=== PATIENT | male | born 1950 | race Caucasian/White ===

== ENCOUNTER 2024-05-19 12:05 | Inpatient (IN) | payer OTHER ==
[~2024-05-19] VITALS: Ht 200.7 cm; Wt 89.5 kg
--- NOTE | 2024-05-19 12:47 | ED.PDOC ---
HPI Comments 74M BIBA w/ prior Hx of AFIB which may be associated to the c/c of Palpitations. Pt stated that he had acid reflex [place] night and "all of a sudden my heart started pounding but it has calmed down for the past 8 hours". Pt notes that his CP is pressure like, SOB and AFIB. Pt also states that he was transferred from [facility]. PMHx of Sinus Srx and Tonsillectomy. Social Hx of tobacco use, but denies alcohol and substance use. Denies chills. fever, N/V/D or other associated symptoms, modifiers, or recent injuries at this time. Chief Complaint: Palpitations Time Seen by MD: 12:15 Primary Care Provider: [place] Reviewed Notes: Nurses Notes, Poiser Notes, Medications, Allergies Allergies: Coded Allergies: Penicillins (Verified Allergy, Severe, 05/19/24) Information Source: Patient Mode of Arrival: EMS Severity: Moderate Timing: Days Duration: Since onset, Days Prehospital treatment: None Location: Chest (L) Radiation: No Radiation Quality: Pressure Onset: At Rest Cardiac Risk Factors: Smoker PE Risk Factors: None History of: Other (A-Fib) Associated Signs and Symptoms: SOB, Palpitations Past Medical History PAST MEDICAL HISTORY: AFIB Surgical History: Tonsillectomy Surgical History (Other): Sinus Srx Family History Family History: Reviewed,noncontributory to illness, Unknown Social History Smoker: Cigarettes Alcohol: Denies ETOH Use Drugs: Denies Drug Use Lives In: Home Constitutional: denies: chills, diaphoresis, fatigue, fever, malaise, sweats, weakness, others EENTM: denies: blurred vision, double vision, ear bleeding, ear discharge, ear drainage, ear pain, ear ringing, eye pain, eye redness, hearing loss, mouth pain, mouth swelling, nasal discharge, nose bleeding, nose congestion, nose pain, photophobia, tearing, throat pain, throat swelling, voice changes, others Respiratory: denies: cough, hemoptysis, orthopnea, SOB at rest, shortness of breath, SOB with excertion, stridor, wheezing, others Cardiovascular: reports: chest pain, palpitations; denies: dizzy spells, diaphoresis, Dyspnea on exertion, edema, irregular heart beat, left arm pain, lightheadedness, PND, syncope, others Gastrointestinal: denies: abdomen distended, abdominal pain, blood streaked bowels, constipated, diarrhea, dysphagia, difficulty swallowing, hematemesis, melena, nausea, poor appetite, poor fluid intake, rectal bleeding, rectal pain, vomiting, others Genitourinary: denies: burning, dysuria, flank pain, frequency, hematuria, incontinence, penile discharge, penile sore, pain, testicle pain, testicle swelling, urgency, others Neurological: denies: dizziness, fainting, headache, left sided numbness, left sided weakness, numbness, paresthesia, pre-existing deficit, right sided numbness, right sided weakness, seizure, speech problems, tingling, tremors, weakness, others Musculoskeletal: denies: back pain, gout, joint pain, joint swelling, muscle pain, muscle stiffness, neck pain, others Integumetry: denies: bruises, change in color, change in hair/nails, dryness, laceration, lesions, lumps, rash, wounds, others Allergic/Immunocompromised: denies: Difficulty Healing, Frequent Infections, Hives, Itching, others Hematologic/Lymphatic: denies: anemia, blood clots, easy bleeding, easy bruising, swollen glands, others Endocrine: denies: excessive hunger, excessive sweating, excessive thirst, excessive urination, flushing, intolerance to cold, intolerance to heat, unexplained weight gain, unexplained weight loss, others Psychiatric: denies: anxiety, bipolar disorder, depression, hopeless, panic disorder, schizophrenia, sleepless, suicidal, others All Other Systems: Reviewed and Negative Physical Exam General Appearance: Moderate Distress, Normal HEENT: Normal ENT Inspection, Pharynx Normal, TMs Normal Neck: Full Range of Motion, Non-Tender, Normal, Normal Inspection Respiratory: Chest Non-Tender, No Accessory Muscle Use, No Respiratory Distress, Other (Coarse breath sounds) Cardiovascular: Irregular, No Edema, No JVD, No Murmur, No Gallop, Normal Peripheral Pulses, Tachycardia Breast Exam: Deferred Gastrointestinal: No Organomegaly, Non Tender, No Pulsatile Mass, Normal Bowel Sounds, Soft Genitalia: Deferred Pelvic: Deferred Rectal: Deferred Extremities: No calf tenderness, Normal capillary refill, Normal range of motion, Non-tender, No pedal edema Musculoskeletal : Apperance: Normal Neurologic: Alert, asphalt heater tender II-XII nml as Tested, No Motor Deficits, Normal Affect, Normal Mood, No Sensory Deficits Cerebellar Function: NOT DONE Reflexes: NOT DONE Skin: Dry, Normal Color, Warm Peripheral Pulses: 3+ Radial (R), 3+ Radial (L) Lymphatic: No Adenopathy Was a procedure done? Was a procedure done?: No CP Differential Dx Differential Diagnosis: A-fib, A-Flutter, Angina, Anxiety / Panic Attack, Atrial Dysrhythmia, Electrolyte Disorder X-Ray, Labs, Meds, VS Vital Signs Date Time Temp Pulse Resp B/P (MAP) Pulse Ox O2 Delivery O2 Flow Rate FiO2 05/19/24 15:10 93/60 05/19/24 14:10 118/68 05/19/24 13:57 99.5 83 20 118/78 (91) 93 99.5 05/19/24 13:57 Room Air* 0 21 05/19/24 12:12 97 05/19/24 12:05 97.8 90 22 103/69 (80) 99 Lab Test 05/19/24 14:40 05/19/24 13:32 Range/Units Troponin I High Sensitivity 4 5 </=54 ng/L White Blood Count 23.6 H 4.4-10.8 10^3/uL Red Blood Count 4.82 4.5-5.90 10^6/uL Hemoglobin 13.6 13.5-17.5 g/dL Hematocrit 40.9 L 41.0-53.0 % Mean Corpuscular Volume 84.9 80.0-100.0 fL Mean Corpuscular Hemoglobin 28.2 28.0-32.0 pg Mean Corpuscular Hemoglobin Concent 33.2 32.0-36.0 g/dL Red Cell Distribution Width 15.5 H 11.8-14.3 % Platelet Count 226 140-450 10^3/uL Mean Platelet Volume 8.8 6.9-10.8 fL Neutrophils (%) (Auto) 74.8 37.0-80.0 % Lymphocytes (%) (Auto) 15.3 10.0-50.0 % Monocytes (%) (Auto) 9.6 0.0-12.0 % Eosinophils (%) (Auto) 0.0 0.0-7.0 % Basophils (%) (Auto) 0.3 0.0-2.0 % Neutrophils # (Auto) 17.7 H 1.6-8.6 10 ^3/uL Lymphocytes # (Auto) 3.6 0.4-5.4 10 ^3/uL Monocytes # (Auto) 2.3 H 0-1.3 10 ^3/uL Eosinophils # (Auto) 0 0-0.8 10 ^3/uL Basophils # (Auto) 0.1 0-0.2 10 ^3/uL Nucleated Red Blood Cells 0.1 % Sodium Level 135 L 136-145 mmol/L Potassium Level 4.9 3.5-5.1 mmol/L Chloride Level 103 98-107 mmol/L Carbon Dioxide Level 23 20-31 mmol/L Anion Gap 9 5-15 Blood Urea Nitrogen 18 9-23 mg/dL Creatinine 1.23 0.700-1.30 mg/dL Glomerular Filtration Rate Calc 62 >90 mL/min BUN/Creatinine Ratio 14.6 10.0-20.0 Serum Glucose 220 H 74-106 mg/dL Calcium Level 10.1 8.7-10.4 mg/dL Total Bilirubin 1.4 H 0.2-1.0 mg/dL Aspartate Amino Transferase (AST) 24 13-40 U/L Alanine Aminotransferase (ALT) 13 7-40 U/L Alkaline Phosphatase 127 H 46-116 U/L Total Protein 7.1 5.7-8.2 g/dL Albumin 4.4 3.2-4.8 g/dL Current Medications Medications (Trade) Dose Ordered Sig/Estela Route Start Time Stop Time Status Last Admin Amiodarone HCl 100 ml @ 618 mls/hr ONCE ONCE IV 05/19/24 12:45 05/19/24 12:54 DC 05/19/24 13:55 Amiodarone HCl 250 ml @ 33.333 mls/ hr Q7H30M IV 05/19/24 13:00 05/19/24 18:59 05/19/24 14:10 Aspirin 325 mg ONCE ONCE PO 05/19/24 14:00 05/19/24 14:01 DC 05/19/24 14:10 Nitroglycerin (Ntrostat Sublingual) 0.4 mg ONCE ONCE SL 05/19/24 14:00 05/19/24 14:01 DC 05/19/24 14:10 Patient alert. Complaining of chest pain irregular heartbeat. Vitals stable. Answering all questions. Started on amiodarone. Spoke with [facility]. Stable for transfer. Explained to the patient. Continue cardiac monitoring. WBC elevated. Early pneumonia. Was given Rocephin. Was given azithromycin. [facility] approved inpatient admission [id number]. Time of 1ST Reevaluation: 12:45 Reevaluation 1ST: Unchanged Patient Education/Counseling: Diagnosis, Treatment, Prognosis Family Education/Counseling: No Family Present Departure 1 Departure Time of Disposition: 12:56 Impression: Primary Impression: Atrial fibrillation Qualified Codes: I48.0 - Paroxysmal atrial fibrillation Additional Impression: Pneumonia Qualified Codes: J18.9 - Pneumonia, unspecified organism Disposition: ADMITTED INPATIENT Admit to: Med Surg Condition: Guarded Critical Care Note Critical Care Time?: Yes (45 min-critical care time only) Stability Stability form required: No Heart Score Heart Score: Heart Score Response (Comments) Value History Slightly Suspicious 0 EKG Normal 0 Age >65 2 Risk Factors >3 or Hx ASHD 2 Troponin Normal limit 0 Total 4 I personally scribed for NATA NOBLE MD ([email or web address]) on 05/19/24 at 12:47. Electronically submitted by Brendan Angulo ([email or web address]). NATA NOBLE MD May 19, 2024 12:47
[2024-05-19] MEDS: AMIODARONE BOLUS KIT 100 ML IV ONE (13:55)
[2024-05-19 14:07] LABS: Basophils # (auto) 0.1 10 ^3/uL (0-0.2); Basophils % (auto) 0.3 % (0.0-2.0); Eosinophils # (auto) 0 10 ^3/uL (0-0.8); Hematocrit 40.9 % (41.0-53.0); Hemoglobin 13.6 g/dL (13.5-17.5); Lymphocytes # (auto) 3.6 10 ^3/uL (0.4-5.4); Lymphocytes % (auto) 15.3 % (10.0-50.0); Mean Corpuscular Hemoglobin 28.2 pg (28.0-32.0); Mean Corpuscular Hgb Conc. 33.2 g/dL (32.0-36.0); Mean Corpuscular Volume 84.9 fL (80.0-100.0); Monocytes # (auto) 2.3 10 ^3/uL (0-1.3); Monocytes % (auto) 9.6 % (0.0-12.0); Neutrophils # (auto) 17.7 10 ^3/uL (1.6-8.6); Neutrophils % (auto) 74.8 % (37.0-80.0); Nucleated Red Blood Cells % 0.1 %; Platelet Count (auto) 226 10^3/uL (140-450); Red Blood Cells 4.82 10^6/uL (4.5-5.90); Red Cell Distribution Width 15.5 % (11.8-14.3); White Blood Cell 23.6 10^3/uL (4.4-10.8)
[2024-05-19] MEDS: AMIODARONE 450mg/250ml AE 250 ML IV SCH (14:10)
[2024-05-19] MEDS: ASPirin 325 MG TAB PO ONE (14:10)
[2024-05-19] MEDS: NITROGLYCERIN 0.4 MG SL TAB SL ONE (14:10)
[2024-05-19 14:15] LABS: Alanine Aminotransferase 13 U/L (7-40); Albumin 4.4 g/dL (3.2-4.8); Anion Gap 9 (5-15); Aspartate Aminotransferase 24 U/L (13-40); BUN/Creatinine Ratio 14.6 (10.0-20.0); Blood Urea Nitrogen 18 mg/dL (9-23); Calcium 10.1 mg/dL (8.7-10.4); Carbon Dioxide 23 mmol/L (20-31); Chloride 103 mmol/L (98-107); Potassium 4.9 mmol/L (3.5-5.1); Total Protein 7.1 g/dL (5.7-8.2)
[2024-05-19 14:16] LABS: Alkaline Phosphatase 127 U/L (46-116); Bilirubin, Total 1.4 mg/dL (0.2-1.0); Glucose 220 mg/dL (74-106); Sodium 135 mmol/L (136-145)
[2024-05-19] MEDS: cefTRIAXone 1GM/50ML D5W 50 ML IV ONE (15:31)
[2024-05-19] MEDS: MAGNESIUM SULFATE 1GM/100ML 100 ML IV SCH (16:00)
[2024-05-19] MEDS: AZITHROMYCIN 500MG/ 250ML 250 ML IV ONE (16:11)
--- NOTE | 2024-05-19 16:18 | DVHHP2 ---
History of Present Illness Reason for Visit: Shortness of breaths and palpitations History of Present Illness MoreJez is a 74-year-old male with past medical history of AFib, venous insufficiency, and smoker who presents to the ED with palpitations and shortness of breath. Patient reports that the indigestion discomfort started on Monday. Daughter at bedside also states that she tested him for COVID results were negative. Patient reports that he went to [place] [facility] urgent care today and the transferred him here to the ED. Patient rates his current pain 2/10 pressure- like and constant. Patient denies any chills, fever, nausea, vomiting, diarrhea, headache, lightheadedness and dizziness. Cardiovascular: AFIB Past Surgical History: Other (Sinus surgery), Tonsillectomy Smoke: 2 packs per day ALCOHOL: none Drugs: Other (THC gummies nightly) Lives: with Family Domestic Violence: Neg Review of Systems Constitutional: No: Fever, Chills, Sweats, Weakness, Malaise, Other Eyes: No: Pain, Vision change, Conjunctivae inflammation, Eyelid inflammation, Other, Redness ENT: No: Ear pain, Ear discharge, Nose pain, Nose discharge, Nose congestion, Mouth pain, Mouth swelling, Throat pain, Throat swelling, Other Respiratory: Shortness of breath; No: Cough, Dry, SOB with excertion, Wheezing, Hemoptysis, Pleuritic Pain, Sputum, Wheezing, Other Cardiovascular: Palpitations; No: Chest Pain, Orthopnea, Paroxysmal Noc. Dyspnea, Edema, Lt Headedness, Other Gastrointestinal: No: Nausea, Vomiting, Abdominal Pain, Diarrhea, Constipation, Melena, Hematochezia, Other Genitourinary: No Dysuria, No Frequency, No Incontinence, No Hematuria, No Retention, No Other Musculoskeletal: No: other, neck pain, shoulder pain, arm pain, back pain, hand pain, leg pain, foot pain Skin: No: Rash, Lesions, Jaundice, Bruising, Other Neurological: No: Weakness, Numbness, Incoordination, Change in speech, Confusion, Seizures, Other Allergies: Coded Allergies: Penicillins (Verified Allergy, Severe, 05/19/24) Medications Current Medications Medications Dose Ordered Sig/Estela Route Start Time Stop Time Status Last Admin Dose Admin Amiodarone HCl 250 ml @ 33.333 mls/ hr Q7H30M IV 05/19/24 13:00 05/19/24 18:59 05/19/24 14:10 33.333 MLS/HR Exam Vital Signs Vital Signs Date Time Temp Pulse Resp B/P (MAP) Pulse Ox O2 Delivery O2 Flow Rate FiO2 05/19/24 15:10 93/60 05/19/24 13:57 99.5 83 20 93 99.5 05/19/24 13:57 Room Air* 0 21 General Appearance: Alert, Oriented X3, Cooperative, mild distress HEENT: Atraumatic, PERRLA, EOMI, Mucous membr. moist/pink Respiratory: Clear to auscultation, Normal air movement Cardiovascular: Normal S1, Normal S2, No murmurs Abdominal: Normal bowel sounds, Soft, No tenderness, No hepatospenomegaly, No masses Extremities: No clubbing, No cyanosis, No edema, Normal pulses, No tenderness/swelling Skin: No rashes, No breakdown, No significant lesion Neuro: Normal speech, Strength at 5/5 X4 ext, Normal tone, Sensation intact Psych/Mental Status: Mental status NL, Mood NL Labs/Xrays Labs Test 05/19/24 14:40 05/19/24 13:32 Range/Units Troponin I High Sensitivity 4 </=54 ng/L White Blood Count 23.6 H 4.4-10.8 10^3/uL Red Blood Count 4.82 4.5-5.90 10^6/uL Hemoglobin 13.6 13.5-17.5 g/dL Hematocrit 40.9 L 41.0-53.0 % Mean Corpuscular Volume 84.9 80.0-100.0 fL Mean Corpuscular Hemoglobin 28.2 28.0-32.0 pg Mean Corpuscular Hemoglobin Concent 33.2 32.0-36.0 g/dL Red Cell Distribution Width 15.5 H 11.8-14.3 % Platelet Count 226 140-450 10^3/uL Mean Platelet Volume 8.8 6.9-10.8 fL Neutrophils (%) (Auto) 74.8 37.0-80.0 % Lymphocytes (%) (Auto) 15.3 10.0-50.0 % Monocytes (%) (Auto) 9.6 0.0-12.0 % Eosinophils (%) (Auto) 0.0 0.0-7.0 % Basophils (%) (Auto) 0.3 0.0-2.0 % Neutrophils # (Auto) 17.7 H 1.6-8.6 10 ^3/uL Lymphocytes # (Auto) 3.6 0.4-5.4 10 ^3/uL Monocytes # (Auto) 2.3 H 0-1.3 10 ^3/uL Eosinophils # (Auto) 0 0-0.8 10 ^3/uL Basophils # (Auto) 0.1 0-0.2 10 ^3/uL Nucleated Red Blood Cells 0.1 % Sodium Level 135 L 136-145 mmol/L Potassium Level 4.9 3.5-5.1 mmol/L Chloride Level 103 98-107 mmol/L Carbon Dioxide Level 23 20-31 mmol/L Anion Gap 9 5-15 Blood Urea Nitrogen 18 9-23 mg/dL Creatinine 1.23 0.700-1.30 mg/dL Glomerular Filtration Rate Calc 62 >90 mL/min BUN/Creatinine Ratio 14.6 10.0-20.0 Serum Glucose 220 H 74-106 mg/dL Calcium Level 10.1 8.7-10.4 mg/dL Total Bilirubin 1.4 H 0.2-1.0 mg/dL Aspartate Amino Transferase (AST) 24 13-40 U/L Alanine Aminotransferase (ALT) 13 7-40 U/L Alkaline Phosphatase 127 H 46-116 U/L Total Protein 7.1 5.7-8.2 g/dL Albumin 4.4 3.2-4.8 g/dL EXAM: XY CHEST PORTABLE TECHNIQUE: Single frontal chest radiograph CLINICAL HISTORY: sob COMPARISON: None Findings/Impression: Frontal chest radiograph demonstrates no acute osseous or superficial soft tissue abnormalities. The trachea is midline. Cardiomegaly with pulmonary vascular congestion. No pneumothorax, pleural effusions, or consolidations. Assessment/Plan Assessment/Plan # AFib with RVR cardiology consult amio drip pradaxa, beta kaila/metoprolol, hold diltiazem lipid panel tsh night monitor labs admit to tele #sepsis likely d/t PNA IV abx - cefepime and vancomycin IVf resuscitation miranda cx check for influenza sputum culture #hyperglycemia check HgbA1c #CKD2 Monitor #venous insufficiency -RLE compression stockings #Tobacco use nicotine patch Counseled on smoking cessation DVT ppx Discussed plan of care with patient, daughter and RN Home medications reconciled Plan discussed with: Patient, Daughter Date of Service: May 19, 2024 Billing Provider: ARLINE ANTOINE Common Visit Codes: [id number] INP/OBS CARE (MOD) ARLINE ANTOINE May 19, 2024 16:18
[2024-05-19] MEDS ORDERED: VANCOMYCIN PER PHARMACY 0 MG IV SCH (16:30)
--- NOTE | 2024-05-19 16:40 | DVH ---
EXAM: XY CHEST PORTABLE TECHNIQUE: Single frontal chest radiograph CLINICAL HISTORY: sob COMPARISON: None Findings/Impression: Frontal chest radiograph demonstrates no acute osseous or superficial soft tissue abnormalities. The trachea is midline. Cardiomegaly with pulmonary vascular congestion. No pneumothorax, pleural effusions, or consolidations.
[2024-05-19] MEDS: SODIUM CHLORIDE 0.9% 2,450 ML IV ONE (17:00)
[2024-05-19] MEDS ORDERED: NITROGLYCERIN 0.4 MG SL TAB SL PRN (17:00)
[2024-05-19] MEDS: VANCOMYCIN 1GM/250ML KIT 250 ML IV SCH (17:17)
[2024-05-19 17:33] LABS: Triglycerides 82 mg/dL (< 150)
[2024-05-19 17:34] LABS: LDL Cholesterol 58 mg/dL (< 100)
[2024-05-19 17:35] LABS: Cholesterol 119 mg/dL (< 200)
[2024-05-19] MEDS: CEFEPIME 1GM/ 50ML 50 ML IV SCH (18:00)
[2024-05-19 18:01] LABS: HDL Cholesterol 38 mg/dL (40-59)
[2024-05-19 18:10] LABS: Lactic Acid w/Reflex 2.5 mmol/L (0.4-2.0)
[2024-05-19] MEDS: SODIUM CHLORIDE 0.9% 1,000 ML IV SCH (18:22)
[2024-05-19 18:27] LABS: Urine Bacteria None Seen /hpf (None Seen)
[2024-05-19 18:40] LABS: Urine Blood Negative /uL (Negative); Urine Clarity Clear (Clear); Urine Color Yellow (Yellow); Urine Hyaline Cast MOD /lpf (0 - 2); Urine Mucus FEW (None Seen); Urine Protein, UAD TRACE (Negative); Urine Specific Gravity 1.019 (1.001-1.035); Urine Urobilinogen Normal (Negative); Urine WBC 2 /hpf (0 - 3); Urine pH 5.5 (5.0-9.0)
[2024-05-19] MEDS ORDERED: DILT60TA PO (21:43)
[2024-05-19] MEDS: ATORVASTATIN 20 MG TAB PO SCH (22:00)
[2024-05-19] MEDS: METOPROLOL TARTRATE 25 MG TAB PO SCH (22:15)
[2024-05-19] MEDS: NICOTINE 7MG/24HR TOPICAL PATCH TD SCH (22:16)
[2024-05-19 22:56] VITALS: RESP 20; O2SAT 91
[2024-05-19] MEDS: DABIGATRAN 75 MG CAP PO SCH (23:05)
[2024-05-19] MEDS: MELATONIN 5 MG TAB ONE (23:13)
[2024-05-19] MEDS: MELATONIN 5 MG TAB PO ONE (23:14)
[2024-05-19] MEDS ORDERED: MELATONIN 5 MG TAB PO ONE (23:15)
[2024-05-20] VITALS (7 sets, daily range): BP systolic 104–119; BP diastolic 64–72; PULSE 75–126; RESP 15–20; TEMP 98.3–99.5; O2SAT 91–95
[2024-05-20] MEDS: VANCOMYCIN 500mg/100mL 100 ML IV SCH (05:02)
--- NOTE | 2024-05-20 05:42 | DVH ---
CHEST RADIOGRAPH Indication: PNA Technique: Single frontal view of the chest was obtained COMPARISON: XY CHEST PORTABLE on DOS: 05/19/24 FINDINGS: Lines and Tubes: None Lungs: Right lower lobe airspace disease. Pleura: No effusion. No pneumothorax. Cardiomediastinal contours: Unremarkable Bones: Unremarkable IMPRESSION: Right lower lobe airspace disease.
[2024-05-20 06:37] LABS: Alanine Aminotransferase 17 U/L (7-40); Alkaline Phosphatase 100 U/L (46-116); Anion Gap 6 (5-15); BUN/Creatinine Ratio 14.8 (10.0-20.0); Blood Urea Nitrogen 12 mg/dL (9-23); Calcium 8.9 mg/dL (8.7-10.4); Carbon Dioxide 24 mmol/L (20-31); Chloride 106 mmol/L (98-107); Potassium 3.8 mmol/L (3.5-5.1); Sodium 136 mmol/L (136-145)
[2024-05-20 06:38] LABS: Albumin 3.4 g/dL (3.2-4.8); Aspartate Aminotransferase 15 U/L (13-40)
[2024-05-20 06:39] LABS: Bilirubin, Total 0.8 mg/dL (0.2-1.0); Total Protein 5.7 g/dL (5.7-8.2)
[2024-05-20 06:48] LABS: Glucose 161 mg/dL (74-106)
[2024-05-20 07:06] LABS: Basophils # (auto) 0 10 ^3/uL (0-0.2); Basophils % (auto) 0.2 % (0.0-2.0); Eosinophils # (auto) 0 10 ^3/uL (0-0.8); Hematocrit 32.3 % (41.0-53.0); Hemoglobin 11.2 g/dL (13.5-17.5); Lymphocytes % (auto) 18.3 % (10.0-50.0); Mean Corpuscular Hemoglobin 28.8 pg (28.0-32.0); Mean Corpuscular Hgb Conc. 34.8 g/dL (32.0-36.0); Mean Corpuscular Volume 82.8 fL (80.0-100.0); Monocytes # (auto) 0.8 10 ^3/uL (0-1.3); Monocytes % (auto) 7.3 % (0.0-12.0); Neutrophils % (auto) 74.2 % (37.0-80.0); Platelet Count (auto) 158 10^3/uL (140-450); Red Cell Distribution Width 15.2 % (11.8-14.3); White Blood Cell 10.8 10^3/uL (4.4-10.8)
[2024-05-20 08:02] LABS: Rapid Influenza A Negative (Negative); Rapid Influenza B Negative (Negative)
--- NOTE | 2024-05-20 09:33 | DVHSR ---
APPROVED REPORT EXAM: Two-dimensional and M-mode echocardiogram with Doppler and color Doppler. Blood Pressure: 93/60 mmHg INDICATION Afib with RVR RISK FACTORS Height: 6'2", Weight: 187 DIMENSIONS LVDd4.7 (3.8-5.7cm)LA (2D)4.1 (1.9-4.0cm)Aortic Root4.0 (2.0-3.7cm) LVDs3.2 (2.5-4.0cm)LA (MM) (1.9-4.0cm)Aortic Cusp Exc2.3 (1.5-2.0cm) EF (%) 60.0 (55-70%)Rt. Atrium4.2 (1.9-4.0cm)Asc. Aorta cm IVSd1.1 (0.7-1.1cm)RV (D)3.7 (1.8-2.4cm) PWd1.1 (0.7-1.1cm) Mitral Valve MitralMitral Stenosis E wave0.84m/sMV Mean GR.mmHg A wave1.01m/sMV Peak GR.mmHg E/A ratio0.82D MVAcm2 DECEL [id number] 1/2 [place] Aortic Valve Aortic ValveAortic Stenosis V11.01m/Ruben Mean GR.4mmHg V21.23m/Ruben Peak GR.6mmHg LVOT Diameter2.5 (1.8-2.4cm)Doppler AVA4.03cm2 Pulmonic Valve V20.74m/s Tricuspid Valve TR Velocity2.63m/s [id number] Conclusion Normal left ventricular size and dimension. Normal left ventricular systolic function estimated ejec tion fraction of 60%. There is a grade 1 diastolic dysfunction. Normal right ventricular size and dimension. Normal right ventricular systolic function. Mildly pablo vated right ventricular systolic [id number] mm of mercury. Normal biatrial size and dimension. Normal aortic valve structure and function. Normal mitral valve structure and function. Normal tricuspid valve structure and function. The pulmonary valve is grossly normal. There is a small circumferential pericardial effusion.
[2024-05-20] MEDS: ACETAMINOPHEN 325 MG TAB PO PRN (10:46)
--- NOTE | 2024-05-20 13:35 | DVHINCON2 ---
Date Seen: May 20, 2024 Referring Physician NEFTALY Campos Reason for Consultation A-fib with RVR History of Present Illness This is a 74-year-old man who presented to the emergency room from a local [facility] via EMS with a chief complaint shortness of breath since Monday. Patient reports worsening shortness of breath associated with palpitations, epigastric pain, bilateral jaw pain, and chest pain described as substernal, pressure-like, and non provoked. The patient also endorses increased fatigue and dizziness when working on his yard for approximately 30 min-1hr at a time which requires him to stop his activities. Given the aforementioned symptoms, the patient presented to a local [facility] where he underwent a 12 lead electrocardiogram and found to be in an atrial fibrillation rhythm with rapid ventricular rate in the 110s bpm. Upon arrival to the emergency room he underwent a subsequent 12 lead electrocardiogram revealing an atrial fibrillation rhythm at a controlled rate. The patient was found in a normal sinus rhythm at time of assessment. Followed up with his primary propeller engineer at [place] approximately two years ago. Reports undergoing a previous dumont sthoracic echocardiogram and treadmill stress test with unremarkable results. Denies undergoing invasive cardiac procedures in the past. Significant medical history includes paroxysmal atrial fibrillation on Cardizem ER and Pradaxa therapy BID, diabetes mellitus type 2, dyslipidemia, basal cell skin carcinoma, emphysema, and a tobacco history x 79.5 pack-years. Past Medical History Past medical history reviewed. No other significant than mentioned above. Past Surgical History Tonsillectomy Family History Family history reviewed. Social History Denies the use of illicit drugs & alcohol. See HPI. Allergies: Coded Allergies: Penicillins (Verified Allergy, Severe, 05/19/24) Home Meds Reported Medications Diltiazem Hcl (Diltiazem Hcl) 60 Mg Tab, 120 MG PO DAILY, MG 05/19/24 Home Meds Home medications reviewed. Current Medications Current Medications Medications (Trade) Dose Ordered Sig/Estela Route PRN Reason Start Time Stop Time Status Last Admin Magnesium Sulfate/ Dextrose 100 ml @ 100 mls/hr Q1HR IV 05/19/24 16:00 05/19/24 17:59 DC 05/19/24 17:16 Sodium Chloride 1,000 ml @ 75 mls/hr [id number] IV 05/19/24 16:30 05/20/24 06:33 Cefepime HCl 50 ml @ 12.5 mls/hr Q8H IV 05/19/24 18:00 05/20/24 10:47 Vancomycin HCl 0 ml @ 0 mls/hr UD IV 05/19/24 16:30 Atorvastatin Calcium (Lipitor) 60 mg HS PO 05/19/24 22:00 Dabigatran (Pradaxa Capsule) 150 mg BID PO 05/19/24 22:00 05/20/24 10:47 Metoprolol Tartrate (Lopressor Tablet) 25 mg BID PO 05/19/24 22:00 05/20/24 10:46 Vancomycin HCl 250 ml @ 250 mls/hr Q1H IV 05/19/24 17:00 05/19/24 18:59 DC 05/19/24 18:22 Acetaminophen/ Hydrocodone Bitart (Triangle 5/325MG Tab) 1 tab Q4HP PRN PO MODERATE PAIN (4-6 PAIN SCALE) 05/19/24 17:00 Ondansetron HCl (Zofran) 4 mg Q4HP PRN IV NAUSEA / VOMITING 05/19/24 17:00 Docusate Sodium (Colace Capsule) 100 mg BIDPRN PRN PO FOR CONSTIPATION 05/19/24 17:00 Acetaminophen (Tylenol Tablet) 650 mg Q6HP PRN PO PAIN SCALE 1-3 OR TEMP>100.4 05/19/24 17:00 05/20/24 10:46 Morphine Sulfate 2 mg Q4HPRN PRN IV SEVERE PAIN (7-10 PAIN SCALE) 05/19/24 17:00 Nitroglycerin (Ntrostat Sublingual) 0.4 mg Q5MINP PRN SL FOR CHEST PAIN 05/19/24 17:00 Morphine Sulfate 2 mg Q30M PRN IV FOR CHEST PAIN 05/19/24 17:00 Albuterol (Ventolin Medneb) 2.5 mg Q4HPRN PRN NEB SHORTNESS OF BREATH 05/19/24 17:15 Ipratropium [place] (Atrovent Medneb) 0.5 mg Q4HPRN PRN NEB SHORTNESS OF BREATH 05/19/24 17:15 Vancomycin HCl 100 ml @ 200 mls/hr Q12H IV 05/20/24 05:00 05/20/24 05:02 Nicotine (Nicoderm 7MG/ 24HR) 1 patch DAILY TD 05/19/24 21:13 05/20/24 10:45 Review of Systems Constitutional: No symptom reported Ears, Nose, & Throat: No symptom reported Eyes: No symptom reported Neurological: Dizziness Pulmonary/Respiratory: SOB Cardiovascular: Chest pain, jaw pain, palpitations Gastrointestinal: No symptom reported Genitourinary: No symptom reported Musculoskeletal: No symptom reported Skin: No symptom reported Psychiatric: No symptom reported Endocrine: No symptom reported Hemotologic/Lymphatic: No symptom reported Vital Signs Vital Signs Date Time Temp Pulse Resp B/P (MAP) Pulse Ox O2 Delivery O2 Flow Rate FiO2 05/20/24 12:00 74 05/20/24 12:00 20 102/63 (76) 95 05/20/24 08:00 Nasal Cannula* 4 36 05/20/24 06:00 99.4 99.4 Physical Exam General Appearance: Cooperative. Well developed. Well nourished. In no acute distress Head Exam: Normal inspection Neck Exam: Normal inspection. Non-tender. Normal alignment Pulmonary/Respiratory: Chest non-tender. Clear bilateral breath sounds Cardiovascular/Chest: Regular rate and rhythm. S1, S2. NSR. No murmurs. No JVD. Peripheral Pulses: 2+ Radial (R). 2+ Radial (L). 2+ Pedal (R). 2+ Pedal (L) Abdominal Exam: Normal bowel sounds. Soft. Nontender. No hepatospenomegaly. No masses Ankle Exam: Negative ankle edema Lower extremities: Negative lower extremity edema Neuro/Mental Status: A&O x4. Coherent Thoughts/Psych: Normal thought pattern. Appropriate mood and affect. Good judgement and insight. Pleasant Appearance: In no acute distress Skin Exam: Normal inspection. Normal color. Warm. Dry Labs/Diagnostic Data Labs Test 05/20/24 05:34 05/20/24 05:01 05/19/24 19:08 05/19/24 18:00 Range/Units Influenza Type A Antigen Negative Negative Influenza Type B Antigen Negative Negative White Blood Count 10.8 # 4.4-10.8 10^3/uL Red Blood Count 3.90 L 4.5-5.90 10^6/uL Hemoglobin 11.2 #L 13.5-17.5 g/dL Hematocrit 32.3 #L 41.0-53.0 % Mean Corpuscular Volume 82.8 80.0-100.0 fL Mean Corpuscular Hemoglobin 28.8 28.0-32.0 pg Mean Corpuscular Hemoglobin Concent 34.8 32.0-36.0 g/dL Red Cell Distribution Width 15.2 H 11.8-14.3 % Platelet Count 158 140-450 10^3/uL Mean Platelet Volume 8.0 6.9-10.8 fL Neutrophils (%) (Auto) 74.2 37.0-80.0 % Lymphocytes (%) (Auto) 18.3 10.0-50.0 % Monocytes (%) (Auto) 7.3 0.0-12.0 % Eosinophils (%) (Auto) 0.0 0.0-7.0 % Basophils (%) (Auto) 0.2 0.0-2.0 % Neutrophils # (Auto) 8.0 1.6-8.6 10 ^3/uL Lymphocytes # (Auto) 2.0 0.4-5.4 10 ^3/uL Monocytes # (Auto) 0.8 0-1.3 10 ^3/uL Eosinophils # (Auto) 0 0-0.8 10 ^3/uL Basophils # (Auto) 0 0-0.2 10 ^3/uL Nucleated Red Blood Cells 0.0 % Sodium Level 136 136-145 mmol/L Potassium Level 3.8 3.5-5.1 mmol/L Chloride Level 106 98-107 mmol/L Carbon Dioxide Level 24 20-31 mmol/L Anion Gap 6 5-15 Blood Urea Nitrogen 12 9-23 mg/dL Creatinine 0.81 0.700-1.30 mg/dL Glomerular Filtration Rate Calc 94 >90 mL/min BUN/Creatinine Ratio 14.8 10.0-20.0 Serum Glucose 161 H 74-106 mg/dL Calcium Level 8.9 8.7-10.4 mg/dL Total Bilirubin 0.8 0.2-1.0 mg/dL Aspartate Amino Transferase (AST) 15 13-40 U/L Alanine Aminotransferase (ALT) 17 7-40 U/L Alkaline Phosphatase 100 46-116 U/L Total Protein 5.7 5.7-8.2 g/dL Albumin 3.4 3.2-4.8 g/dL Lactic Acid Level 1.8 0.4-2.0 mmol/L Urine Color Yellow Yellow Urine Clarity Clear Clear Urine pH 5.5 5.0-9.0 Urine Specific [place] 1.019 1.001-1.035 Urine Protein Trace H Negative Urine Ketones Trace Negative Urine Blood Negative Negative /uL Urine Nitrite Negative Negative Urine Bilirubin Negative Negative Urine Urobilinogen Normal Negative mg/dL Urine Leukocyte Esterase Negative Negative /uL Urine RBC 1 0 - 3 /hpf Urine WBC 2 0 - 3 /hpf Urine Squamous Epithelial Cells Few <5 /hpf Urine Bacteria None seen None Seen /hpf Urine Hyaline Casts Mod 0 - 2 /lpf Urine Mucus Few None Seen Urine Glucose 3+ H Normal mg/dL Test 05/19/24 16:40 05/19/24 13:32 Range/Units Troponin I High Sensitivity 4 </=54 ng/L Hemoglobin A1c 6.8 H <5.7 % A1C Magnesium Level 2.0 1.6-2.6 mg/dL Triglycerides Level 82 < 150 mg/dL Cholesterol Level 119 < 200 mg/dL LDL Cholesterol 58 < 100 mg/dL HDL Cholesterol 38 L 40-59 mg/dL Thyroid Stimulating Hormone (TSH) 2.40 0.55-4.78 uIU/mL Microbiology Date/Time Source Procedure Growth Status 05/19/24 18:00 Voided Urine Urine Culture - Preliminary Resulted Assessment Stable angina rule out coronary artery disease Paroxysmal atrial fibrillation with RVR, now NSR, on Cardizem and Pradaxa Circumferential pericardial effusion, small Ibp-ijvzlul-xboydndys diabetes mellitus Basal cell skin cancer Emphysema with tobacco dependence Smoking history times 79.5 years Plan/Recommendation (Dr. Hyde) The patient with stable angina underwent a transthoracic echocardiogram revealing a LVEF of 60%. We will continue further cardiac evaluation with a cardiac catheterization and coronary angiogram on 05/21/2024. All risks and benefits of the procedure were discussed with the patient who agrees to proceed with intervention. All questions answered. In the meantime, transition from Pradaxa to therapeutic Lovenox. Initiate single antiplatelet therapy and continue lipid lowering agent. Initiate antiarrhythmic therapy, flecainide, as well as Cardizem ER for rate control. Continue Nicotine patch, initiate smoking cessation consult. Monitor ECG changes closely and notify. Thank you for allowing us to participate in this patient's care. Please call if you have any questions or concerns. This medical document was created using an electronic medical record system with voice recognition software and computerized dictation system. Although this document has been carefully reviewed, there might still be some phonetic and typographical errors. Occasional wrong-word or ``sound-alike substitutions may have occurred due to the inherent limitations of voice recognition software. These areas are purely typographical due to imperfections of the software programs and do not reflect any compromise in the patient's medical care. Please read the chart carefully and recognize, using context, where these substitutions have occurred. Plan discussed with: Patient, Other Date of Service: May 20, 2024 Billing Provider: LUI HYDE MD Cardiology Common Codes: [id number] INP/OBS CARE (High) MARIBELL BRICEÑO BARGE WORKER May 20, 2024 13:35
--- NOTE | 2024-05-20 15:39 | DVHPN2 ---
Subjective feeling better, afib resolved on tele Changes from previous H/P or p: No Changes Eyes: No Pain, No Vision change, No Conjunctivae inflammation, No Eyelid inflammation, No Other, No Redness ENT: No Ear pain, No Ear discharge, No Nose pain, No Nose discharge, No Nose congestion, No Mouth pain, No Mouth swelling, No Throat pain, No Throat swelling, No Other Cardiovascular: No Chest Pain; Palpitations; No Orthopnea, No Paroxysmal Noc. Dyspnea, No Edema, No Lt Headedness, No Other Respiratory: No Cough, No Dry; Shortness of breath; No SOB with excertion, No Wheezing, No Hemoptysis, No Pleuritic Pain, No Sputum, No Other Gastrointestinal: No Nausea, No Vomiting, No Abdominal Pain, No Diarrhea, No Constipation, No Melena, No Hematochezia, No Other Genitourinary: No Dysuria, No Frequency, No Incontinence, No Hematuria, No Retention, No Other Musculoskeletal: No other, No neck pain, No shoulder pain, No arm pain, No back pain, No hand pain, No leg pain, No foot pain Skin: No Rash, No Lesions, No Jaundice, No Bruising, No Other Objective Vitals Vital Signs Date Time Temp Pulse Resp B/P (MAP) Pulse Ox O2 Delivery O2 Flow Rate FiO2 05/20/24 14:00 83 20 119/69 (86) 95 05/20/24 08:00 Nasal Cannula* 4 36 05/20/24 06:00 99.4 99.4 General Appearance: Alert, Oriented X3 HEENT: Atraumatic Lungs: Clear to auscultation Cardiovascular: Regular rate Medications Current Medications Medications Dose Ordered Sig/Estela Route Start Time Stop Time Status Last Admin Dose Admin Sodium Chloride 1,000 ml @ 75 mls/hr [id number] IV 05/19/24 16:30 05/20/24 06:33 75 MLS/HR Cefepime HCl 50 ml @ 12.5 mls/hr Q8H IV 05/19/24 18:00 05/20/24 10:47 12.5 MLS/HR Vancomycin HCl 0 ml @ 0 mls/hr UD IV 05/19/24 16:30 Acetaminophen/ Hydrocodone Bitart 1 tab Q4HP PRN PO 05/19/24 17:00 Ondansetron HCl 4 mg Q4HP PRN IV 05/19/24 17:00 Docusate Sodium 100 mg BIDPRN PRN PO 05/19/24 17:00 Acetaminophen 650 mg Q6HP PRN PO 05/19/24 17:00 05/20/24 10:46 650 MG Morphine Sulfate 2 mg Q4HPRN PRN IV 05/19/24 17:00 Nitroglycerin 0.4 mg Q5MINP PRN SL 05/19/24 17:00 Morphine Sulfate 2 mg Q30M PRN IV 05/19/24 17:00 Albuterol 2.5 mg Q4HPRN PRN NEB 05/19/24 17:15 Ipratropium [place] 0.5 mg Q4HPRN PRN NEB 05/19/24 17:15 Vancomycin HCl 100 ml @ 200 mls/hr Q12H IV 05/20/24 05:00 05/20/24 05:02 200 MLS/HR Nicotine 1 patch DAILY TD 05/19/24 21:13 05/20/24 10:45 1 PATCH Atorvastatin Calcium 40 mg HS PO 05/20/24 22:00 Flecainide Acetate 50 mg Q12HR PO 05/20/24 22:00 Aspirin 81 mg DAILY PO 05/21/24 10:00 Diltiazem HCl 120 mg DAILY PO 05/21/24 10:00 Laboratory Results Laboratory Tests 05/20/24 05:01 Chemistry Test 05/20/24 05:01 Albumin 3.4 g/dL (3.2-4.8) Calcium Level 8.9 mg/dL (8.7-10.4) Total Protein 5.7 g/dL (5.7-8.2) LFT Test 05/20/24 05:01 Alanine Aminotransferase (ALT) 17 U/L (7-40) Alkaline Phosphatase 100 U/L (46-116) Aspartate Amino Transferase (AST) 15 U/L (13-40) Total Bilirubin 0.8 mg/dL (0.2-1.0) Urinalysis Test 05/19/24 18:00 Urine Color Yellow (Yellow) Urine Clarity Clear (Clear) Urine pH 5.5 (5.0-9.0) Urine Specific [place] 1.019 (1.001-1.035) Urine Protein Trace (Negative) H Urine Ketones Trace (Negative) Urine Blood Negative /uL (Negative) Urine Nitrite Negative (Negative) Urine Bilirubin Negative (Negative) Urine Urobilinogen Normal mg/dL (Negative) Urine Leukocyte Esterase Negative /uL (Negative) Urine RBC 1 /hpf (0 - 3) Urine WBC 2 /hpf (0 - 3) Urine Squamous Epithelial Cells Few /hpf (<5) Urine Bacteria None seen /hpf (None Seen) Urine Hyaline Casts Mod /lpf (0 - 2) Urine Mucus Few (None Seen) Urine Glucose 3+ mg/dL (Normal) H Microbiology Microbiology Date/Time Source Procedure Growth Status 05/19/24 18:00 Voided Urine Urine Culture - Preliminary Resulted Assessment/Plan Assessment/Plan # AFib with RVR cardiology consult recs off amiodarone started flecainide and cardizem lovenox #Stable angina going for cath tomorrow aspirin #sepsis likely d/t PNA IV abx - cefepime and vancomycin IVf resuscitation miranda cx check for influenza sputum culture #hyperglycemia check HgbA1c #CKD2 Monitor #venous insufficiency -RLE compression stockings #Tobacco use nicotine patch Counseled on smoking cessation Plan discussed with: Patient Date of Service: May 20, 2024 Billing Provider: MARIXA PEÑA MD Common Visit Codes: [id number] INP/OBS CARE(HIGH) MARIXA PEÑA MD May 20, 2024 15:39
[2024-05-20] MEDS: POTASSIUM CHL 20 Meq TABLET PO ONE (17:58)
[2024-05-20] MEDS: ASPirin 81 mg TAB PO ONE (17:59)
[2024-05-20] MEDS: FLECAINIDE ACETATE 50 MG TAB PO ONE (18:00)
[2024-05-20] MEDS ORDERED: ATOR40TA52 PO (18:47)
[2024-05-20] MEDS ORDERED: DABI75CA6 PO (18:47)
[2024-05-20] MEDS ORDERED: DILT120C44 PO (18:47)
--- NOTE | 2024-05-20 19:12 | ECG ---
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
[2024-05-20] MEDS ORDERED: MELATONIN 5 MG TAB PO ONE ×2 (22:00→23:30)
[2024-05-20] MEDS: ATORVASTATIN 20 MG TAB PO SCH (22:02)
[2024-05-20] MEDS: FLECAINIDE ACETATE 50 MG TAB PO SCH (22:02)
[2024-05-20] MEDS: ENOXAPARIN SOD 100 MG/1 ML SYRINGE SC ONE (22:03)
[2024-05-20 22:33] LABS: INR 1.25 (0.9-1.15); Partial Thromboplastin Time 43.3 SEC (24.5-34.5)
[2024-05-21] VITALS (14 sets, daily range): BP systolic 98–122; BP diastolic 61–71; PULSE 85–119; RESP 12–20; TEMP 97.9–98.8; O2SAT 92–98
[2024-05-21 04:15] LABS: Basophils # (auto) 0 10 ^3/uL (0-0.2); Basophils % (auto) 0.4 % (0.0-2.0); Eosinophils # (auto) 0 10 ^3/uL (0-0.8); Hematocrit 36.6 % (41.0-53.0); Hemoglobin 12.7 g/dL (13.5-17.5); Lymphocytes # (auto) 2.2 10 ^3/uL (0.4-5.4); Mean Corpuscular Hemoglobin 28.9 pg (28.0-32.0); Mean Corpuscular Hgb Conc. 34.6 g/dL (32.0-36.0); Mean Corpuscular Volume 83.4 fL (80.0-100.0); Monocytes # (auto) 0.7 10 ^3/uL (0-1.3); Neutrophils # (auto) 6.9 10 ^3/uL (1.6-8.6); Neutrophils % (auto) 70.6 % (37.0-80.0); Platelet Count (auto) 204 10^3/uL (140-450); Red Blood Cells 4.39 10^6/uL (4.5-5.90); Red Cell Distribution Width 15.2 % (11.8-14.3); White Blood Cell 9.8 10^3/uL (4.4-10.8)
[2024-05-21 04:31] LABS: INR 1.16 (0.9-1.15); Partial Thromboplastin Time 43.9 SEC (24.5-34.5); Prothrombin Time 12.2 sec (9.3-11.8)
[2024-05-21] MEDS: MORPHINE SULFATE INJ 2 MG/ml SYRG IV PRN (05:09)
[2024-05-21] MEDS: ASPirin 81 mg TAB PO SCH (09:54)
[2024-05-21] MEDS: dilTIAZem 120MG ER CAP PO SCH (09:54)
[2024-05-21] MEDS: IODIXANOL 320MG/ML 100ML BTL IV ONE (10:24)
[2024-05-21] MEDS: VERAPAMIL 2.5MG/ML INJ 2ML VIAL IV ONE (10:54)
[2024-05-21] MEDS: LIDOCAINE 2%HCL (LOCAL ANESTH.) INJ 20ML MDV ONE (10:54)
[2024-05-21] MEDS: MIDAZOLAM HCL 2MG/2ML 2ml VIAL (1mg/ml) ONE (10:54)
[2024-05-21] MEDS: HEPARIN SODIUM (PORCINE) 5000 UNITS/ML 1ML VIAL ONE (10:54)
[2024-05-21] MEDS: SODIUM CHL 0.9% 0 ML ONE (10:54)
[2024-05-21] MEDS: fentaNYL CITRATE 100 MCG/2 ML VL ONE (10:54)
[2024-05-21] MEDS: ANGIOMAX 250 MG VIAL IV ONE (10:54)
--- NOTE | 2024-05-21 12:10 | DVHOP2 ---
Operative Report -Cardiology Report Details Date: 05/21/24 Preop Diagnosis: Angina pectoralis. Postop Diagnosis: No significant coronary artery disease was noted Surgeon: Marcela Santana MD Anesthesiologist: Conscious sedation using25 mcg of fentanyl as well as a mg of midazolam. It was given under direct supervision of the primary senior software development manager myself under the presence of the other nurses. Patient was monitored for total of35 minutes without any obvious complication Anesthesia: Local Consent: The patient was informed of the risks and benefits of the procedure. These include but are not limited to complications of anesthesia, postoperative infection, incomplete relief of symptoms, recurrence of symptoms, damage to blood vessels, nerves and tendons, deep venous thrombosis, pulmonary embolism and possible need for repeat surgery in the future. Indications for Surgery: This is a 74-year-old man who presented to the emergency room from a local [facility] via EMS with a chief complaint shortness of breath since Monday. Patient reports worsening shortness of breath associated with palpitations, epigastric pain, bilateral jaw pain, and chest pain described as substernal, pressure-like, and non provoked. The patient also endorses increased fatigue and dizziness when working on his yard for approximately 30 min-1hr at a time which requires him to stop his activities. Given the aforementioned symptoms, the patient presented to a local [facility] where he underwent a 12 lead electrocardiogram and found to be in an atrial fibrillation rhythm with rapid ve ntricular rate in the 110s bpm. Upon arrival to the emergency room he underwent a subsequent 12 lead electrocardiogram revealing an atrial fibrillation rhythm at a controlled rate. The patient was found in a normal sinus rhythm at time of assessment. Followed up with his primary senior software development manager at [place] approximately two years ago. Reports undergoing a previous transthoracic echocardiogram and treadmill stress test with unremarkable results. Denies undergoing invasive cardiac procedures in the past. Significant medical history includes paroxysmal atrial fibrillation on Cardizem ER and Pradaxa therapy BID, diabetes mellitus type 2, dyslipidemia, basal cell skin carcinoma, emphysema, and a tobacco history x 79.5 pack-years. Name of Procedure Performed 1. Left heart catheterization with left ventricular end-diastolic pressure measurement. 2. Selective right and left coronary angiography utilizing right transradial approach. 3. Conscious sedation using25 mcg of fentanyl as well as a mg of midazolam. Procedure Details Procedure Details: Procedure note and vascular access: After informed consent was obtained risks, benefits, complications, and alternatives were discussed in details with the patient who agrees to have the procedure done. The beginning of the procedure. The right wrist and the right groin area were prepped and draped in the regular sterile fashion. Patient received conscious sedation. Thereafter a total of 2 cc of 1% xylocaine was instilled locally to the right wrist area before a six Sammarinese sheath was placed without difficulty to the right wrist radial artery. Cocktail of 2.5 mg of verapamil as well as 100 mcg of nitroglycerin were given intra-arterial to prevent vasospasm. Findings were as follows: 1. Left heart catheterization with left ventricular end-diastolic pressure measurement: With the help of a tiger five Sammarinese catheter as well as a J-tip wire we were able to cross the aortic valve and measured left ventricular end-diastolic pressure which was normal at 7 mm of mercury. There was no gradient across the aortic valve on the pullback. The patient was noted to be in atrial fibrillation throughout the procedure. 2. Selective right and left coronary angiography utilizing right transradial approach: 1. Right coronary artery comes off the right coronary cusp with a very high takeoff it was difficult to engage despite multiple the grossly catheter exchange. Finally we guarded with a tiger five Sammarinese catheter it is large dominant system it bifurcated distally into a medium-sized posterior descending artery as well as a medium-sized posterolateral branch without significant atherosclerotic plaquing. 2. The left main comes off the left coronary cusp it is widely patent bifurcates distally into a large left anterior descending artery and medium-sized left circumflex vessel. 3. The left anterior descending artery it is a large vessel with transapical course it gives rise to two diagonal branches it has sluggish flow but no significant atherosclerotic plaquing was noted. 4. The left circumflex system is a medium-sized vessel it gives rise to two obtuse marginal branches without significant atherosclerotic plaquing or discr ete stenosis. Impression and plan: 1. No significant coronary artery disease was noted but sluggish flow. 2. Normal left ventricular end-diastolic pressure. 3. Patient was noted to be in atrial fibrillation throughout the procedure., I would recommend aggressive medical management for risk factor including hypertension control as well as anticoagulation for atrial fibrillation. 4. Patient would need echocardiogram to assess left ventricular systolic function and proceed with goal-directed therapy as indicated. Condition Good Disposition MARCELA SANTANA MD May 21, 2024 12:09
--- NOTE | 2024-05-21 13:24 | ECG ---
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
--- NOTE | 2024-05-21 14:27 | DVHPN2 ---
Consult Progress Note Date Seen: May 21, 2024 Subjective Review of Systems: CVS:Normal, RESPIRATORY:Normal, NEURO:Normal Objective vital signs Vital Sign Date Time Temp Pulse Resp B/P (MAP) Pulse Ox O2 Delivery O2 Flow Rate FiO2 05/21/24 13:55 99 13 114/67 (83) 94 05/21/24 11:55 98.5 98.5 05/21/24 06:20 Nasal Cannula* 2 28 Total Intake and Output 05/20/24 05/20/24 05/21/24 15:00 23:00 07:00 Intake Total 300 ml 750 ml Output Total 300 ml Balance -300 ml 300 ml 750 ml medications Current Medications Medications Dose Ordered Sig/Estela Route Start Time Stop Time Status Last Admin Dose Admin Sodium Chloride 1,000 ml @ 75 mls/hr [id number] IV 05/19/24 16:30 05/20/24 06:33 75 MLS/HR Cefepime HCl 50 ml @ 12.5 mls/hr Q8H IV 05/19/24 18:00 05/21/24 09:55 12.5 MLS/HR Vancomycin HCl 0 ml @ 0 mls/hr UD IV 05/19/24 16:30 Acetaminophen/ Hydrocodone Bitart 1 tab Q4HP PRN PO 05/19/24 17:00 Ondansetron HCl 4 mg Q4HP PRN IV 05/19/24 17:00 Docusate Sodium 100 mg BIDPRN PRN PO 05/19/24 17:00 Acetaminophen 650 mg Q6HP PRN PO 05/19/24 17:00 05/20/24 10:46 650 MG Morphine Sulfate 2 mg Q4HPRN PRN IV 05/19/24 17:00 Nitroglycerin 0.4 mg Q5MINP PRN SL 05/19/24 17:00 Morphine Sulfate 2 mg Q30M PRN IV 05/19/24 17:00 05/21/24 05:09 2 MG Albuterol 2.5 mg Q4HPRN PRN NEB 05/19/24 17:15 Ipratropium [place] 0.5 mg Q4HPRN PRN NEB 05/19/24 17:15 Nicotine 1 patch DAILY TD 05/19/24 21:13 05/21/24 09:55 1 PATCH Atorvastatin Calcium 40 mg HS PO 05/20/24 22:00 05/20/24 22:02 40 MG Flecainide Acetate 50 mg Q12HR PO 05/20/24 22:00 05/21/24 09:54 50 MG Aspirin 81 mg DAILY PO 05/21/24 10:00 05/21/24 09:54 81 MG Diltiazem HCl 120 mg DAILY PO 05/21/24 10:00 05/21/24 09:54 120 MG Vancomycin HCl 250 ml @ 250 mls/hr Q10H IV 05/21/24 13:00 Examination: LUNGS:Normal, CVS:Normal, NEURO:Normal laboratory and microbiology Laboratory Tests 05/21/24 04:01 05/20/24 05:01 Test 05/20/24 05:01 Range/Units Serum Glucose 161 H 74-106 mg/dL Problem List/Assessment/Plan Problem List/Assessment/Plan Sepsis with PNA Coronary artery disease ruled out Paroxysmal atrial fibrillation with RVR, now NSR, on Cardizem and Pradaxa Circumferential pericardial effusion, small Rmd-gihzpjj-psieedplj diabetes mellitus, HgbA1C 6.8% Basal cell skin cancer Emphysema with tobacco dependence Smoking history times 79.5 years Plan/Recommendation (Dr. Hyde) The patient with anginal complains underwent a transthoracic echocardiogram revealing a LVEF of 60% as well as a cardiac catheterization revealing no significant coronary artery disease. Reinitiate Pradaxa BID. Continue antiarrhythmic therapy, flecainide, as well as Cardizem ER for rate control. Continue Nicotine patch. ABX therapy per primary care team. We will sign off at this time. Kindly call if in need to re-consult. Thank you for allowing us to participate in this patient's care. This medical document was created using an electronic medical record system with voice recognition software and computerized dictation system. Although this document has been carefully reviewed, there might still be some phonetic and typographical errors. Occasional wrong-word or ``sound-alike substitutions may have occurred due to the inherent limitations of voice recognition software. These areas are purely typographical due to imperfections of the software programs and do not reflect any compromise in the patient's medical care. Please read the chart carefully and recognize, using context, where these substitutions have occurred. Plan discussed with: Patient, Daughter, Other Date of Service: May 21, 2024 Billing Provider: LUI HYDE MD Cardiology Common Codes: [id number] INP/OBS CARE(Mod) MARIBELL BRICEÑO [facility] May 21, 2024 14:27
[2024-05-21] MEDS: VANCOMYCIN 1GM/250ML KIT 250 ML IV SCH (14:37)
--- NOTE | 2024-05-21 18:31 | DVHPN2 ---
Subjective feeling better, afib resolved on tele Going for cath today, when I came to room he was going down Changes from previous H/P or p: No Changes Eyes: No Pain, No Vision change, No Conjunctivae inflammation, No Eyelid inflammation, No Other, No Redness ENT: No Ear pain, No Ear discharge, No Nose pain, No Nose discharge, No Nose congestion, No Mouth pain, No Mouth swelling, No Throat pain, No Throat swelling, No Other Cardiovascular: No Chest Pain; Palpitations; No Orthopnea, No Paroxysmal Noc. Dyspnea, No Edema, No Lt Headedness, No Other Respiratory: No Cough, No Dry; Shortness of breath; No SOB with excertion, No Wheezing, No Hemoptysis, No Pleuritic Pain, No Sputum, No Other Gastrointestinal: No Nausea, No Vomiting, No Abdominal Pain, No Diarrhea, No Constipation, No Melena, No Hematochezia, No Other Genitourinary: No Dysuria, No Frequency, No Incontinence, No Hematuria, No Retention, No Other Musculoskeletal: No other, No neck pain, No shoulder pain, No arm pain, No back pain, No hand pain, No leg pain, No foot pain Skin: No Rash, No Lesions, No Jaundice, No Bruising, No Other Objective Vitals Vital Signs Date Time Temp Pulse Resp B/P (MAP) Pulse Ox O2 Delivery O2 Flow Rate FiO2 05/21/24 16:30 97.9 85 17 109/64 (79) 96 97.9 05/21/24 08:00 Room Air* 0 21 Intake/Output Intake and Output 05/21/24 05:00 Intake Total 900 ml Output Total 1750 ml Balance -850 ml Intake Oral 750 ml IV Total 150 ml Output Urine Total 1750 ml # Voids 6 General Appearance: Alert, Oriented X3 HEENT: Atraumatic Lungs: Clear to auscultation Cardiovascular: Regular rate Medications Current Medications Medications Dose Ordered Sig/Estela Route Start Time Stop Time Status Last Admin Dose Admin Sodium Chloride 1,000 ml @ 75 mls/hr [id number] IV 05/19/24 16:30 05/20/24 06:33 75 MLS/HR Cefepime HCl 50 ml @ 12.5 mls/hr Q8H IV 05/19/24 18:00 05/21/24 17:05 12.5 MLS/HR Vancomycin HCl 0 ml @ 0 mls/hr UD IV 05/19/24 16:30 Acetaminophen/ Hydrocodone Bitart 1 tab Q4HP PRN PO 05/19/24 17:00 Ondansetron HCl 4 mg Q4HP PRN IV 05/19/24 17:00 Docusate Sodium 100 mg BIDPRN PRN PO 05/19/24 17:00 Acetaminophen 650 mg Q6HP PRN PO 05/19/24 17:00 05/21/24 17:05 650 MG Morphine Sulfate 2 mg Q4HPRN PRN IV 05/19/24 17:00 Nitroglycerin 0.4 mg Q5MINP PRN SL 05/19/24 17:00 Morphine Sulfate 2 mg Q30M PRN IV 05/19/24 17:00 05/21/24 05:09 2 MG Albuterol 2.5 mg Q4HPRN PRN NEB 05/19/24 17:15 Ipratropium [place] 0.5 mg Q4HPRN PRN NEB 05/19/24 17:15 Nicotine 1 patch DAILY TD 05/19/24 21:13 05/21/24 09:55 1 PATCH Flecainide Acetate 50 mg Q12HR PO 05/20/24 22:00 05/21/24 09:54 50 MG Diltiazem HCl 120 mg DAILY PO 05/21/24 10:00 05/21/24 09:54 120 MG Vancomycin HCl 250 ml @ 250 mls/hr Q10H IV 05/21/24 13:00 05/21/24 14:37 250 MLS/HR Dabigatran 150 mg BID PO 05/21/24 22:00 Laboratory Results Laboratory Tests 05/20/24 05:01 05/21/24 04:01 Coagulation Test 05/20/24 21:59 05/21/24 04:01 Prothrombin Time 13.0 sec (9.3-11.8) H 12.2 sec (9.3-11.8) H Prothrombin Time INR 1.25 (0.9-1.15) H 1.16 (0.9-1.15) H Activated Partial Thromboplast Time 43.3 SEC (24.5-34.5) H 43.9 SEC (24.5-34.5) H Urinalysis Test 05/19/24 18:00 Urine Color Yellow (Yellow) Urine Clarity Clear (Clear) Urine pH 5.5 (5.0-9.0) Urine Specific [place] 1.019 (1.001-1.035) Urine Protein Trace (Negative) H Urine Ketones Trace (Negative) Urine Blood Negative /uL (Negative) Urine Nitrite Negative (Negative) Urine Bilirubin Negative (Negative) Urine Urobilinogen Normal mg/dL (Negative) Urine Leukocyte Esterase Negative /uL (Negative) Urine RBC 1 /hpf (0 - 3) Urine WBC 2 /hpf (0 - 3) Urine Squamous Epithelial Cells Few /hpf (<5) Urine Bacteria None seen /hpf (None Seen) Urine Hyaline Casts Mod /lpf (0 - 2) Urine Mucus Few (None Seen) Urine Glucose 3+ mg/dL (Normal) H Microbiology Microbiology Date/Time Source Procedure Growth Status 05/19/24 18:00 Voided Urine Urine Culture - Preliminary Resulted 05/19/24 16:40 Blood Blood Culture - Preliminary NO GROWTH AFTER 48 HOURS OF INCUBATION. Resulted Assessment/Plan Assessment/Plan # AFib with RVR cardiology consult recs off amiodarone started flecainide and cardizem lovenox #Stable angina going for cath today aspirin #sepsis likely d/t PNA IV abx - cefepime and vancomycin IVf resuscitation miranda cx check for influenza sputum culture #hyperglycemia check HgbA1c #CKD2 Monitor #venous insufficiency -RLE compression stockings #Tobacco use nicotine patch Counseled on smoking cessation Plan discussed with: Patient Date of Service: May 21, 2024 Billing Provider: MARIXA PEÑA MD Common Visit Codes: [id number] INP/OBS CARE(HIGH) MARIXA PEÑA MD May 21, 2024 18:31
[2024-05-21] MEDS: DABIGATRAN 75 MG CAP PO SCH (21:42)
[2024-05-22] VITALS (24 sets, daily range): BP systolic 91–137; BP diastolic 43–79; PULSE 66–112; RESP 15–55; TEMP 95.7–98.2; O2SAT 76–100
[2024-05-22] MEDS: MORPHINE SULFATE INJ 2 MG/ml SYRG IV PRN (00:09)
[2024-05-22] MEDS: ONDANSETRON HCL 4 MG/2 ML VIAL IV PRN (00:57)
[2024-05-22] MEDS: HYDROcodone-ACET 5/325MG TAB PO PRN (01:02)
[2024-05-22 06:17] LABS: Alanine Aminotransferase 28 U/L (7-40); Anion Gap 11 (5-15); BUN/Creatinine Ratio 12.1 (10.0-20.0); Blood Urea Nitrogen 12 mg/dL (9-23); Calcium 9.4 mg/dL (8.7-10.4); Carbon Dioxide 21 mmol/L (20-31); Chloride 101 mmol/L (98-107); Potassium 4.3 mmol/L (3.5-5.1)
[2024-05-22 06:18] LABS: Albumin 3.8 g/dL (3.2-4.8); Aspartate Aminotransferase 15 U/L (13-40); Total Protein 6.3 g/dL (5.7-8.2)
[2024-05-22 06:35] LABS: Alkaline Phosphatase 124 U/L (46-116); Glucose 299 mg/dL (74-106); Sodium 133 mmol/L (136-145)
[2024-05-22] MEDS: DOCUSATE SOD 100 MG CAP PO PRN (11:28)
[2024-05-22] MEDS: LACTULOSE 20Gm/30ML SOLN PO ONE (12:12)
[2024-05-22] MEDS: FLEET ENEMA(ADULT) 135 ML PR ONE (16:23)
--- NOTE | 2024-05-22 17:41 | DVHPN2 ---
Subjective Seen and examined at bedside, c/o constipation. Changes from previous H/P or p: No Changes Eyes: No Pain, No Vision change, No Conjunctivae inflammation, No Eyelid inflammation, No Other, No Redness ENT: No Ear pain, No Ear discharge, No Nose pain, No Nose discharge, No Nose congestion, No Mouth pain, No Mouth swelling, No Throat pain, No Throat swelling, No Other Cardiovascular: No Chest Pain; Palpitations; No Orthopnea, No Paroxysmal Noc. Dyspnea, No Edema, No Lt Headedness, No Other Respiratory: No Cough, No Dry; Shortness of breath; No SOB with excertion, No Wheezing, No Hemoptysis, No Pleuritic Pain, No Sputum, No Other Gastrointestinal: No Nausea, No Vomiting, No Abdominal Pain, No Diarrhea, No Constipation, No Melena, No Hematochezia, No Other Genitourinary: No Dysuria, No Frequency, No Incontinence, No Hematuria, No Retention, No Other Musculoskeletal: No other, No neck pain, No shoulder pain, No arm pain, No back pain, No hand pain, No leg pain, No foot pain Skin: No Rash, No Lesions, No Jaundice, No Bruising, No Other Objective Vitals Vital Signs Date Time Temp Pulse Resp B/P (MAP) Pulse Ox O2 Delivery O2 Flow Rate FiO2 05/22/24 13:06 92 Nasal Cannula* 2 28 05/22/24 13:00 97.7 75 19 92/62 (72) 97.7 Intake/Output Intake and Output 05/22/24 07:00 Intake Total 1450 ml Output Total 600 ml Balance 850 ml Intake Oral 900 ml IV Total 550 ml Output Urine Total 600 ml General Appearance: Alert, Oriented X3 HEENT: Atraumatic Lungs: Clear to auscultation Cardiovascular: Regular rate Medications Current Medications Medications Dose Ordered Sig/Estela Route Start Time Stop Time Status Last Admin Dose Admin Sodium Chloride 1,000 ml @ 75 mls/hr [id number] IV 05/19/24 16:30 05/20/24 06:33 75 MLS/HR Cefepime HCl 50 ml @ 12.5 mls/hr Q8H IV 05/19/24 18:00 05/22/24 11:21 12.5 MLS/HR Vancomycin HCl 0 ml @ 0 mls/hr UD IV 05/19/24 16:30 Acetaminophen/ Hydrocodone Bitart 1 tab Q4HP PRN PO 05/19/24 17:00 05/22/24 06:46 1 TAB Ondansetron HCl 4 mg Q4HP PRN IV 05/19/24 17:00 05/22/24 06:46 4 MG Docusate Sodium 100 mg BIDPRN PRN PO 05/19/24 17:00 05/22/24 11:28 100 MG Acetaminophen 650 mg Q6HP PRN PO 05/19/24 17:00 05/21/24 17:05 650 MG Morphine Sulfate 2 mg Q4HPRN PRN IV 05/19/24 17:00 05/22/24 04:15 2 MG Nitroglycerin 0.4 mg Q5MINP PRN SL 05/19/24 17:00 Morphine Sulfate 2 mg Q30M PRN IV 05/19/24 17:00 05/21/24 05:09 2 MG Albuterol 2.5 mg Q4HPRN PRN NEB 05/19/24 17:15 Ipratropium [place] 0.5 mg Q4HPRN PRN NEB 05/19/24 17:15 Nicotine 1 patch DAILY TD 05/19/24 21:13 05/22/24 09:12 1 PATCH Flecainide Acetate 50 mg Q12HR PO 05/20/24 22:00 05/22/24 09:20 50 MG Diltiazem HCl 120 mg DAILY PO 05/21/24 10:00 05/21/24 09:54 120 MG Vancomycin HCl 250 ml @ 250 mls/hr Q10H IV 05/21/24 13:00 05/22/24 09:18 250 MLS/HR Dabigatran 150 mg BID PO 05/21/24 22:00 05/22/24 09:12 150 MG Laboratory Results Laboratory Tests 05/21/24 04:01 05/22/24 05:07 Chemistry Test 05/22/24 05:07 Albumin 3.8 g/dL (3.2-4.8) Calcium Level 9.4 mg/dL (8.7-10.4) Total Protein 6.3 g/dL (5.7-8.2) LFT Test 05/22/24 05:07 Alanine Aminotransferase (ALT) 28 U/L (7-40) Alkaline Phosphatase 124 U/L (46-116) H Aspartate Amino Transferase (AST) 15 U/L (13-40) Total Bilirubin 1.0 mg/dL (0.2-1.0) Urinalysis Test 05/19/24 18:00 Urine Color Yellow (Yellow) Urine Clarity Clear (Clear) Urine pH 5.5 (5.0-9.0) Urine Specific [place] 1.019 (1.001-1.035) Urine Protein Trace (Negative) H Urine Ketones Trace (Negative) Urine Blood Negative /uL (Negative) Urine Nitrite Negative (Negative) Urine Bilirubin Negative (Negative) Urine Urobilinogen Normal mg/dL (Negative) Urine Leukocyte Esterase Negative /uL (Negative) Urine RBC 1 /hpf (0 - 3) Urine WBC 2 /hpf (0 - 3) Urine Squamous Epithelial Cells Few /hpf (<5) Urine Bacteria None seen /hpf (None Seen) Urine Hyaline Casts Mod /lpf (0 - 2) Urine Mucus Few (None Seen) Urine Glucose 3+ mg/dL (Normal) H Microbiology Microbiology Date/Time Source Procedure Growth Status 05/19/24 18:00 Voided Urine Urine Culture - Final Complete 05/19/24 16:40 Blood Blood Culture - Preliminary NO GROWTH AFTER 72 HOURS OF INCUBATION. Resulted Assessment/Plan Assessment/Plan # AFib with RVR cardiology consult recs off amiodarone started flecainide and cardizem lovenox #Stable angina s/p LHC #sepsis likely d/t PNA Doxy PO IVf resuscitation miranda cx check for influenza sputum culture #hyperglycemia check HgbA1c #CKD2 Monitor #venous insufficiency -RLE compression stockings #Tobacco use nicotine patch Counseled on smoking cessation Plan discussed with: Patient, Daughter My Orders Orders - LAMAR DIAZ MD Procedure Category Date Status Time Chest Portable XY 05/22/24 Logged 17:26 Abg W/ Co-Ox RT 05/22/24 Logged 17:26 Doxycycline Tablet PHA 05/22/24 Transmitted (Vibramycin Tablet) 22:00 Chest Portable XY 05/23/24 Transmitted 04:00 Date of Service: May 22, 2024 Billing Provider: LAMAR DIAZ MD Common Visit Codes: [id number] INP/OBS CARE(HIGH) LAMAR DIAZ MD May 22, 2024 17:41
--- NOTE | 2024-05-22 18:01 | DVH ---
EXAM: XY CHEST PORTABLE HISTORY: shortness of breath COMPARISON: XY CHEST XRAY 1 VIEW on DOS: 05/20/24, XY CHEST PORTABLE on DOS: 05/19/24 FINDINGS: LINES AND TUBES: None. CARDIOMEDIASTINAL: The heart is enlarged. The pulmonary vasculature is prominent. Atherosclerotic ca lcification of the aortic arch noted. PULMONARY: Mild interstitial opacities with Marlon B-lines noted in the periphery of the lower lung z ones. Blunting of the bilateral costophrenic angles noted reflecting trace bilateral pleural effusio ns. There is no pneumothorax. BONES/SOFT TISSUES: No acute abnormality is noted. Bilateral glenohumeral joint osteoarthritis noted. IMPRESSION: 1. Moderate cardiomegaly, pulmonary venous congestion, small bilateral pleural effusions and suggesti on of interstitial edema. Correlate clinically.
[2024-05-22] MEDS: SODIUM BICARB 8.4% 50Meq/50ml SYR INJ ONE (18:06)
[2024-05-22] MEDS: ETOMIDATE (2MG/ML) 20ML VIAL IV ONE ×2 (18:06→18:10)
[2024-05-22] MEDS: ROCURONIUM 10MG/ML 10ML VIAL IV ONE ×2 (18:06→18:14)
[2024-05-22] MEDS: SODIUM BICARB 8.4% 50Meq/50ml SYR Vial IV ONE ×2 (18:07→23:28)
[2024-05-22] MEDS: NOREPINEPHRINE 8 MG/250ML KIT 250 ML IV ONE (18:12)
--- NOTE | 2024-05-22 18:49 | RESUS ---
MALLORY SCHULTZ ASSESSSMENT History of Events History of Events: PATIENT NOTED TO HAVE INCREASED RESPIRATORY RATE AND EFFORT AFTER ATTEMPTING TO HAVE A BOWEL MOVEMENT. PATIENT PLACED ON NON REBREATHER, WITH NO RELIEF OF SHORTNESS OF BREATH. DR ANDERSON AND DR JUAREZ AT BEDSIDE. PATIENT AND DAUGHTER AGREED TO ELECTIVE INTUBATION. PATIENT NOTED TO BECOME BRADYCARDIC AFTER INTUBATION. BRADYCARDIA LEAD TO ASYSTOLE. MALLORY SCHULTZ CALLED. ACLS PROTOCOLS INITIATED. Initial Information Date: May 22, 2024 Time: 18:22 [place]rest[place] Witnessed: Yes CPR started initial time: 18:22 CPR started by whom: Hospital Staff Pre-Hospital Care: ACLS Type of arrest: Cardiac Spontaneous Respirations: No Pulse Present: Yes Monitoring: Pulse Oximetry, Capnography, Telemetry Crash Cart Opened and Supplies: Yes Airway Ventilation Breathing at Onset: Assisted Oxygen Delivery Method: Ambu-Bag Artificial Ventilation: Bag/Endo tube Intubation Size: 8.0 cuffed Intubated by: DR OTERO Intubation Attempts: 1 Intubated orally: Yes Tube secured at: 26 Confirmation: Auscultation, Exhaled CO2 Circulation Circulation #1: Time: 18:24 Circulation Comment: ASYSTOLE Circulation #2: Time: 18:26 Pulse Rate (adult): 46 Circulation Comment: BRADYCARDIA NO DETECTABLE BP Procedure - IV Procedure - IV : Comment 20G RIGHT AC PRESENT ON PATIENT PRIOR TO MALLORY SCHULTZ Medications & Response Medications and Responses : Medication Time: 18:22 ADULT Medications Given ADULT: Epinephrine 1 mg Route of Administration: IV EKG Rhythm: Asystole Procedure - Giordano Catheter Comment: GIORDANO CATHETER PRESENT PRIOR TO MALLORY SCHULTZ Nurses Notes Harpreet Coma Scale Eye Opening: None (1) [place] Coma Scale Verbal: None (1) [place] Coma Scale Motor: None (1) Pupil Reaction: Sluggish EKG Rhythm: Sinus Bradycardia Time Code Ended Time Code Ended: 18:26 Post Arrest Status: Unconscious, Ventilated Outcome of code: Successful Family notified: Yes Attending called: Yes Code Team Present: DR MONICA ALLEN [employer]GE [employer]ESSING DEPARTMENT SUPERVISOR GRICELDA CHRIS ROSC Time of ROSC: 18:26 Cora Carrillo May 22, 2024 18:49
[2024-05-22] MEDS ORDERED: SODIUM BICARB 50mEq/50ml Vial 150 ML in D5W 5% 1,000 ML IV SCH (19:00)
[2024-05-22] MEDS: fentaNYL Drip 2500mCg/250mlNS 250 ML IV ONE (19:09)
[2024-05-22] MEDS: MIDAZOLAM DRIP 50 mg/50mL 50 ML IV ONE (19:10)
--- NOTE | 2024-05-22 19:16 | RESUS ---
CODE BLUE ASSESSSMENT History of Events History of Events: 2ND CODE ANTOINE ACHIEVED ROSC AT 1826. PATIENT BRADYCARDIC WITH WITNESSED ASYSTOLE Initial Information Date: May 22, 2024 Time: 18:29 [place] of [place]rest[place] Witnessed: Yes CPR started initial time: 18:29 CPR started by whom: Hospital Staff Pre-Hospital Care: ACLS Type of arrest: Cardiac Spontaneous Respirations: No Pulse Present: No Monitoring: Pulse Oximetry, Telemetry Crash Cart Opened and Supplies: Yes Airway Ventilation Breathing at Onset: Assisted Oxygen Delivery Method: Ambu-Bag Comments: INTUBATION ON 1ST CODE Circulation Circulation #1: Time: 18:31 Pulse Rate (adult): 182 Circulation #2: Time: 18:33 Pulse Rate (adult): 188 Circulation #3: Time: 18:36 Pulse Rate (adult): 90 Blood Pressure Systolic: 187 Blood Pressure Diastolic: 74 Circulation Comment: SINUS RHYTHM Defibrillation Defbrillation #1: Time Defibrillator Applied: 18:31 EKG Rhythm: V-Tachycardia Compressions: Manual Compressions Hold/Resume: 1832 Time Defibrillator Shocked Pt.: 18:32 Defib. Joules: 200 Pulse Present: No Defbrillation #2: Time Defibrillator Applied: 18:33 EKG Rhythm: V-Tachycardia Compressions: Manual Compressions Hold/Resume: 1833 Time Defibrillator Shocked Pt.: 18:34 Pulse Present: No Medications & Response Medications and Responses #1: Medication Time: 18:29 ADULT Medications Given ADULT: Epinephrine 1 mg Route of Administration: IV EKG Rhythm: Asystole Medications and Responses #2: Medication Time: 18:30 ADULT Medications Given ADULT: 2 Amps Na Bicarb Route of Administration: IV Medications and Responses #3: Medication Time: 18:32 ADULT Medications Given ADULT: Epinephrine 1 mg Route of Administration: IV EKG Rhythm: Asystole Medications and Responses #4: Medication Time: 18:35 ADULT Medications Given ADULT: Epinephrine 1 mg Route of Administration: IV EKG Rhythm: Asystole Medications and Responses #5: Medication Time: 18:35 ADULT Medications Given ADULT: Amiodarone 300 mg Route of Administration: IV EKG Rhythm: V-Tachycardia Procedure - Central Venous Cat Central venous catheter time: 18:38 Central venous catheter site: Lt Femoral Central Venous Catheter Insert: DR ANDERSON Procedure - Posey Catheter Comment: PRESENT BEFORE CODES Nurses Notes [place] Coma Scale Eye Opening: None (1) Harpreet Coma Scale Verbal: None (1) [place] Coma Scale Motor: None (1) Pupil Reaction: Sluggish EKG Rhythm: Sinus Rhythm Time Code Ended Time Code Ended: 18:36 Post Arrest Status: Unconscious, Ventilated Outcome of code: Successful Family notified: Yes Attending called: Yes Code Team Present: DR MONICA JOHNSON RN GRICELDA CHRIS ROSC Time of ROSC: 18:36 Cora Carrillo May 22, 2024 19:16
--- NOTE | 2024-05-22 19:37 | DVH ---
CHEST RADIOGRAPH Indication: INTUBATED Technique: Single frontal view of the chest was obtained Comparison: XY CHEST PORTABLE on DOS: 05/22/24, XY CHEST XRAY 1 VIEW on DOS: 05/20/24, XY CHEST PORTAB LE on DOS: 05/19/24 FINDINGS: Lines and Tubes: Endotracheal tube terminates about 3.3 cm above the aleena. Lungs: Diffuse interstitial prominence of the visualized lungs. The lower lung zones are outside the field of view. No pneumothorax of the visualized lungs. Cardiomediastinal contours: Unremarkable Bones: No acute osseous abnormality. IMPRESSION: Endotracheal tube is in satisfactory position. Pulmonary vascular congestion of the visualized lungs with the lower lung zones outside the field of view.
[2024-05-22 19:43] LABS: Base Excess -24.1 mmol/L (-2.0-3.0)
[2024-05-22] MEDS: VASOPRESSIN 20 UNITS in SODIUM CHL 0.9% 99 ML IV SCH (19:45)
[2024-05-22] MEDS: PHENYLEPHRINE IV 250 ML IV SCH (19:45)
--- NOTE | 2024-05-22 19:48 | DVHINCON2 ---
Date of service: May 22, [address] Brown Reason for Consultation Acute respiratory failure History of Present Illness 74-year-old man history of atrial fibrillation, venous insufficiency, nicotine dependence who initially presented with palpitations and shortness of breath. He underwent cardiac catheterization yesterday. This afternoon patient was found to be in severe metabolic acidosis. He was tachypneic, using accessory muscles and in severe respiratory distress. Emergent pulmonary consultation was called for intubation and mechanical ventilator management. Review of systems: Unable to be obtained due to patient's critical condition. Past medical history: Atrial fibrillation, venous insufficiency, nicotine dependence Past surgical history: Cardiac catheterization, tonsillectomy Medications: Reviewed Allergies: Msg, penicillins Family history: No family history of premature CAD. No family history of lung disease. Social history: THC gummies nightly. No alcohol use. Smoker, two packs per day. Lives with family. Family History: FH: CHF (congestive heart failure) G8 MOTHER FH: leukemia G8 FATHER Allergies: Coded Allergies: Penicillins (Verified Allergy, Severe, 05/19/24) Uncoded Allergies: MSG (Allergy, Mild, Stiff muslces , 05/22/24) Home Meds Reported Medications Dabigatran Etexilate Mesylate (PRADAXA CAPSULE) 75 Mg Cp, 150 MG PO DAILY, CAP 05/20/24 Atorvastatin Calcium (ATORVASTATIN CALCIUM) 40 Mg Tab, 1 TAB PO QPM, #90 TAB 3 Refills 05/20/24 Diltiazem HCl (Cartia Xt) 120 Mg Cap, 120 MG PO DAILY, CAP 05/20/24 Diltiazem Hcl (Diltiazem Hcl) 60 Mg Tab, 120 MG PO DAILY, MG 05/19/24 Current Medications Current Medications Medications (Trade) Dose Ordered Sig/Estela Route PRN Reason Start Time Stop Time Status Last Admin Dabigatran (Pradaxa Capsule) 150 mg BID PO 05/21/24 22:00 05/22/24 09:12 Doxycycline Monohydrate (Vibramycin Tablet) 100 mg Q12HR PO 05/22/24 22:00 Norepinephrine Bitartrate 250 ml @ 3.75 mls/hr Q24H IV 05/22/24 18:30 Sodium Bicarbonate 150 ml/Dextrose 1,150 ml @ 100 mls/hr [id number] IV 05/22/24 19:00 Phenylephrine HCl 250 ml @ 30 mls/hr Q8H20M IV 05/22/24 19:45 UNV Vasopressin 20 units/Sodium Chloride 100 ml @ 9 mls/hr Q11H7M IV 05/22/24 19:45 UNV Vital Signs Vital Signs Date Time Temp Pulse Resp B/P (MAP) Pulse Ox O2 Delivery O2 Flow Rate FiO2 05/22/24 19:16 90 Ambu-Bag 05/22/24 18:14 101/25 05/22/24 17:00 96.9 15 76 96.9 05/22/24 13:06 2 28 Physical Exam Gen.: Patient lying in bed in medical ICU. Sedated, intubated on mechanical ventilator. Head: Normocephalic, atraumatic. Eyes: PERRLA. Ears: Normal external anatomy. Throat: Endotracheal tube and orogastric tube in place. Neck: Supple, trachea midline. Chest: Transmitted breath sounds bilaterally. Decreased air entry bilaterally. No wheezing. Bibasilar crackles. Cardio vascular: Positive S1, positive S2. Regular rate and rhythm. Abdomen: Positive bowel sounds in all 4 quadrants. Soft, nontender, nondistended. : Posey in place. Normal external genitalia. Rectal: Deferred Skin: Warm, dry. Intact. Extremities: 2+ radial pulses bilaterally. No lower extremity edema. Neuro: Sedated. Labs/Diagnostic Data Labs Test 05/22/24 18:45 05/22/24 17:45 05/22/24 05:07 05/21/24 04:01 Range/Units Vancomycin Level Trough 21.4 H 5-10 ug/mL Blood Gas Specimen Type Arterial Blood Gas Sample Site Right fermoral Blood Gas Patient Temperature 37.0 Arterial Blood Date Drawn [id number] Arterial Blood pH 7.117 *L 7.350-7.450 Arterial Blood Partial Pressure CO2 12.6 *L 35.0-48.0 mmHg Arterial Blood Partial Pressure O2 97.8 83.0-108.0 mmHg Arterial Blood HCO3 4.0 L 21.0-28.0 mmol/L Arterial Blood Oxygen Saturation 94.9 94.0-98.0 % Arterial Blood Base Excess -23.0 L -2.0-3.0 mmol/L Arterial Blood Oxyhemoglobin 93.3 L 94.0-98.0 % Arterial Blood Carboxyhemoglobin 1.4 0.5-1.5 % Arterial Blood Methemoglobin 0.3 0.0-1.5 % Ramsey Test N/a Blood Gas Total Hemoglobin 15.10 13.5-17.5 g/dL Blood Gas Liter Flow 15.00 Blood Gas Modality Mask - nrb FiO2 % 100.0 Blood Gas Critical Value Read Back Yes Blood Gas Notified Whom Md riley carrington Blood Gas Notified Time [id number] Blood Gas Notified By Rt addi mello Sodium Level 133 L 136-145 mmol/L Potassium Level 4.3 3.5-5.1 mmol/L Chloride Level 101 98-107 mmol/L Carbon Dioxide Level 21 20-31 mmol/L Anion Gap 11 5-15 Blood Urea Nitrogen 12 9-23 mg/dL Creatinine 0.99 0.700-1.30 mg/dL Glomerular Filtration Rate Calc 81 >90 mL/min BUN/Creatinine Ratio 12.1 10.0-20.0 Serum Glucose 299 #H 74-106 mg/dL Calcium Level 9.4 8.7-10.4 mg/dL Total Bilirubin 1.0 0.2-1.0 mg/dL Aspartate Amino Transferase (AST) 15 13-40 U/L Alanine Aminotransferase (ALT) 28 7-40 U/L Alkaline Phosphatase 124 H 46-116 U/L Total Protein 6.3 5.7-8.2 g/dL Albumin 3.8 3.2-4.8 g/dL White Blood Count 9.8 4.4-10.8 10^3/uL Red Blood Count 4.39 L 4.5-5.90 10^6/uL Hemoglobin 12.7 L 13.5-17.5 g/dL Hematocrit 36.6 #L 41.0-53.0 % Mean Corpuscular Volume 83.4 80.0-100.0 fL Mean Corpuscular Hemoglobin 28.9 28.0-32.0 pg Mean Corpuscular Hemoglobin Concent 34.6 32.0-36.0 g/dL Red Cell Distribution Width 15.2 H 11.8-14.3 % Platelet Count 204 140-450 10^3/uL Mean Platelet Volume 7.4 6.9-10.8 fL Neutrophils (%) (Auto) 70.6 37.0-80.0 % Lymphocytes (%) (Auto) 22.0 10.0-50.0 % Monocytes (%) (Auto) 7.0 0.0-12.0 % Eosinophils (%) (Auto) 0.0 0.0-7.0 % Basophils (%) (Auto) 0.4 0.0-2.0 % Neutrophils # (Auto) 6.9 1.6-8.6 10 ^3/uL Lymphocytes # (Auto) 2.2 0.4-5.4 10 ^3/uL Monocytes # (Auto) 0.7 0-1.3 10 ^3/uL Eosinophils # (Auto) 0 0-0.8 10 ^3/uL Basophils # (Auto) 0 0-0.2 10 ^3/uL Nucleated Red Blood Cells 0.0 % Prothrombin Time 12.2 H 9.3-11.8 sec Prothrombin Time INR 1.16 H 0.9-1.15 Activated Partial Thromboplast Time 43.9 H 24.5-34.5 SEC Test 05/20/24 05:34 05/19/24 19:08 05/19/24 18:00 05/19/24 16:40 Range/Units Influenza Type A Antigen Negative Negative Influenza Type B Antigen Negative Negative Lactic Acid Level 1.8 0.4-2.0 mmol/L Urine Color Yellow Yellow Urine Clarity Clear Clear Urine pH 5.5 5.0-9.0 Urine Specific [place] 1.019 1.001-1.035 Urine Protein Trace H Negative Urine Ketones Trace Negative Urine Blood Negative Negative /uL Urine Nitrite Negative Negative Urine Bilirubin Negative Negative Urine Urobilinogen Normal Negative mg/dL Urine Leukocyte Esterase Negative Negative /uL Urine RBC 1 0 - 3 /hpf Urine WBC 2 0 - 3 /hpf Urine Squamous Epithelial Cells Few <5 /hpf Urine Bacteria None seen None Seen /hpf Urine Hyaline Casts Mod 0 - 2 /lpf Urine Mucus Few None Seen Urine Glucose 3+ H Normal mg/dL Troponin I High Sensitivity 4 </=54 ng/L Test 05/19/24 13:32 Range/Units Hemoglobin A1c 6.8 H <5.7 % A1C Magnesium Level 2.0 1.6-2.6 mg/dL Triglycerides Level 82 < 150 mg/dL Cholesterol Level 119 < 200 mg/dL LDL Cholesterol 58 < 100 mg/dL HDL Cholesterol 38 L 40-59 mg/dL Thyroid Stimulating Hormone (TSH) 2.40 0.55-4.78 uIU/mL Microbiology Date/Time Source Procedure Growth Status 05/19/24 18:00 Voided Urine Urine Culture - Final Complete 05/19/24 16:40 Blood Blood Culture - Preliminary NO GROWTH AFTER 72 HOURS OF INCUBATION. Resulted Assessment Impression: Acute hypoxic respiratory failure On mechanical ventilator Status post cardiac arrest Metabolic acidosis Glycemia Plan: s/p intubation on mechanical ventilator See separate procedure note for intubation Lost pulse post intubation PEA See code blue sheet for full details. Emergently placed left femoral central line for venous access and administration of vasopressors. Initially attempted on right femoral line during code blue. Attempt was unsuccessful. CXR image and report reviewed. Endotracheal tube in place. Pulmonary vascular congestion. ABG reviewed. Severe acidemia secondary to metabolic acidosis. D5W with three amps of bicarbonate running at 100 mL an hour. Placed on assist control with respiratory rate of 24, tidal volume 550, peep of eight, FiO2 at 100%. Titrate FIO2 to keep O2 saturation above 92%. VAP bundle Daily ABG and CXR while intubated. Sedate for ventilatory synchrony Bronchodilators On pressors for hemodynamic support. On Levophed 10 mcg/min Titrate to keep MAP above 65 mmHg/SBP above 90 mmHg. Continue antibiotics. F/u cultures. Monitor renal function due to Acute kidney injury. Monitor electrolytes. Supplement as necessary. Started bicarbonate drip for severe metabolic acidosis Post intubation ABG is pending. On Pradaxa for atrial fibrillation On procainamide tablet Nutritional support. Accucheks, ISS. On nicotine replacement therapy GI/DVT prophylaxis. Condition: Critical Prognosis: Poor given multiple comorbidities. Rest of plan per hospitalist and other consultants. A total of 36 minutes of critical care time was spent reviewing the patient record, examining the patient, making a diagnostic and therapeutic plan, discussing this plan with the medical personnel, following up on diagnostic studies and following the patient for clinical stability excluding any and all procedures. At least 50% of this time was spent in direct, [id number] contact. Thank you Dr. Brown for allowing me to participate in this patient's care. Further recommendations will depend on patient's clinical course. Please do not hesitate to contact me if you have any questions or concerns. This medical document was created using an electronic medical record system with [employer] dictation system. Although this document has been carefully reviewed, there may still be some phonetic and typographical errors. These areas are purely typographical due to imperfections of the software programs, and do not reflect any compromise in the patient's medical care. Plan discussed with: Patient, Spouse, Other (RN, RT, MD) CATIA ANDERSON MD May 22, 2024 19:48
--- NOTE | 2024-05-22 19:50 | DVHNC2 ---
Procedure - Procedure: Endotracheal Intubation INDICATION: Acute hypoxic respiratory failure, accessory muscle usage Physician: Catia Parr MD Rotary Drier Feeder: Dr. Monreal, PGY2 CONSENT: Emergent procedure. Implied. Both patient and daughter understood the risks and benefits of the procedure prior to intubation. PROCEDURE SUMMARY: A time out was performed. My hands were washed immediately prior to the procedure. I wore a surgical cap, mask with protective eyewear, gown and gloves throughout the procedure. The patient was placed on a beach attendant including continuous pulse oximetry. The patient received 16 mg Etomidate and 50 mg rocuronium for induction. Cricoid pressure was maintained from time induction agent was given to time of cuff balloon inflation. Using a MAC 4 GlideoScope and a size 8.0 endotracheal tube with stylet, the patient was intubated on the 1 attempt. The stylet was removed and cuff balloon was inflated. Appropriate endotracheal tube position was confirmed by direct visualization of vocal cord passage, fogging of the tube, CO2 colorimetric indicator and symmetric breath sounds. The tube was secured at 25 cm at the lips. Post intubation chest x-ray is demonstrates the ETT between 2-6 cm above the aleena. CPT Code: 79511 CATIA PARR MD May 22, 2024 19:49
[2024-05-22] MEDS: PHENYLEPHRINE IV 250 ML IV ONE (19:51)
--- NOTE | 2024-05-22 19:53 | DVHNC2 ---
Procedure - ULTRASOUND-GUIDED LEFT Femoral Vein CENTRAL VENOUS CANNULATION CPT Codes: 17918 (ultrasound guidance) 80631 (insertion of non-tunneled centrally inserted central venous catheter) DATE: 05/22/2024 PHYSICIAN: Catia Parr PREOPERATIVE DIAGNOSIS: Severe sepsis with poor venous access POSTOPERATIVE DIAGNOSIS: Severe sepsis with poor venous access PROCEDURE PERFORMED: Limited Ultrasound-guided LEFT femoral central line placement. ANESTHESIA: 2 mL of 1% lidocaine plain. ESTIMATED BLOOD LOSS: less than 5 mL. SPECIMENS: None. COMPLICATIONS: None. INDICATIONS FOR PROCEDURE: The patient is in need of large bore IV access for administration of fluids, including blood products and vasoactive drugs, and possibly CVP monitoring for hemodynamic instability. Emergent procedure needed for venous access for administration of pressors. DESCRIPTION OF PROCEDURE IN DETAIL: The patient was lying in the reverse Trendelenburg position. The skin was thoroughly sponged with chlorhexidine and allowed to dry. All persons involved were shielded with hair nets, face masks and sterile gowns. With sterile-gloved hands the LEFT neck area was draped with the large disposable sterile field provided in the pre-manufactured kit. The skin and subcutaneous tissues superficial to the LEFT femoral vein were anesthetized with 2 mL of 1% lidocaine. The LEFT femoral vein was identified on ultrasound using the linear ultrasound probe in the transverse orientation. The femoral artery was identified and avoided utilizing color-flow. The femoral vein was then placed in the center of the ultrasound field and compressed for patency. A movement artifact was identified as the needle was advanced through the skin and advanced toward the vessel. A real time hyperechoic signal revealed visualization of vascular needle entry into the lumen as blood was noted to flashback in the syringe. The needle was then held in place while the guide wire was advanced. The needle was then removed. Direct visualization of guide wire location within the vein was noted on ultrasound indicating proper placement and was document in the electronic medical record chart. A skin dilator was advanced over the guidewire and removed, and the triple-lumen catheter was then advanced over the guide wire into proper position. The guide wire was removed and discarded. The ports were aspirated which showed good blood return and then carefully flushed with normal saline. The catheter was stabilized and sutured to the skin with 2-0 silk at 2 anchor points. A sterile bio-patch and dressing was placed over the catheter, including the insertion site. The patient tolerated the procedure well. An image recording of the procedure accompanies the chart. CATIA PARR MD May 22, 2024 19:53
[2024-05-22] MEDS ORDERED: SODIUM BICARB 50mEq/50ml Vial 50 ML in SOD CHL 0.45% 1,000 ML IV SCH (20:00)
[2024-05-22 20:06] LABS: Albumin 3.3 g/dL (3.2-4.8); Anion Gap 28 (5-15); BUN/Creatinine Ratio 11.1 (10.0-20.0); Potassium 4.4 mmol/L (3.5-5.1); Sodium 136 mmol/L (136-145)
[2024-05-22 20:07] LABS: Bilirubin, Total 1.1 mg/dL (0.2-1.0)
[2024-05-22] MEDS ORDERED: VANCOMYCIN PER PHARMACY 0 MG IV SCH (20:15)
[2024-05-22 20:21] LABS: Hematocrit 41.6 % (41.0-53.0); Red Blood Cells 4.66 10^6/uL (4.5-5.90)
[2024-05-22 20:24] LABS: Hemoglobin 13.1 g/dL (13.5-17.5); Mean Corpuscular Hemoglobin 28.1 pg (28.0-32.0); Mean Corpuscular Hgb Conc. 31.5 g/dL (32.0-36.0); Mean Corpuscular Volume 89.1 fL (80.0-100.0); Platelet Count (auto) 242 10^3/uL (140-450); Red Cell Distribution Width 15.9 % (11.8-14.3)
[2024-05-22 20:45] LABS: INR 3.13 (0.9-1.15); Partial Thromboplastin Time 53.2 SEC (24.5-34.5); Prothrombin Time 30.5 sec (9.3-11.8)
[2024-05-22 20:56] LABS: Alanine Aminotransferase 2427 U/L (7-40); Alkaline Phosphatase 142 U/L (46-116); Aspartate Aminotransferase 3714 U/L (13-40); Blood Urea Nitrogen 29 mg/dL (9-23); Carbon Dioxide 11 mmol/L (20-31); Chloride 97 mmol/L (98-107); Glucose 321 mg/dL (74-106); Magnesium 2.7 mg/dL (1.6-2.6); Phosphorus 9.8 mg/dL (2.4-5.1); Total Protein 5.5 g/dL (5.7-8.2)
[2024-05-22 21:06] LABS: Lactic Acid w/Reflex 21.9 mmol/L (0.4-2.0); White Blood Cell 31.5 10^3/uL (4.4-10.8)
[2024-05-22 21:07] LABS: Basophils % (manual) 0 (0.0-2.0); Blast Cells 0; Eosinophils % (manual) 0 (0-7); Myelocytes % 0; Promyelocytes % 0; Reactive Lymphocytes 0
[2024-05-22] MEDS: MIDAZOLAM DRIP 50 mg/50mL 50 ML IV SCH (21:30)
[2024-05-22] MEDS: PROPOFOL 100 ML IV SCH (21:30)
[2024-05-22] MEDS: fentaNYL Drip 2500mCg/250mlNS 250 ML IV SCH (21:30)
[2024-05-22] MEDS ORDERED: DOXYCYCLINE 100 MG TAB/CAP PO SCH (22:00)
[2024-05-22] MEDS: MAGNESIUM SULFATE 1GM/100ML 100 ML IV ONE (22:15)
[2024-05-22] MEDS: cefTRIAXone 1GM/50ML D5W 50 ML IV ONE (22:15)
[2024-05-22 22:28] LABS: Band Neutrophils % (manual) 16; Lymphocytes % (manual) 15 (10.0-50.0); Metamyelocytes % 1; Monocytes % (manual) 8 (0-12); Platelet Estimate Adequate
[2024-05-22 22:37] LABS: Base Excess -17.7 mmol/L (-2.0-3.0)
[2024-05-22 23:21] LABS: Albumin 3.4 g/dL (3.2-4.8); Anion Gap 28 (5-15); BUN/Creatinine Ratio 10.9 (10.0-20.0); Magnesium 2.4 mg/dL (1.6-2.6); Potassium 4.6 mmol/L (3.5-5.1); Sodium 137 mmol/L (136-145)
[2024-05-22 23:22] LABS: Total Protein 5.8 g/dL (5.7-8.2)
[2024-05-22] MEDS: SODIUM BICARB 50mEq/50ml Vial 50 ML in SOD CHL 0.45% 1,000 ML IV SCH (23:28)
[2024-05-22 23:36] LABS: Alkaline Phosphatase 138 U/L (46-116); Blood Urea Nitrogen 29 mg/dL (9-23); Carbon Dioxide 14 mmol/L (20-31); Chloride 95 mmol/L (98-107); Glucose 383 mg/dL (74-106)
[2024-05-22 23:37] LABS: Alanine Aminotransferase 4412 U/L (7-40); Aspartate Aminotransferase > 6000 U/L (13-40); Bilirubin, Total 1.5 mg/dL (0.2-1.0)
[2024-05-22] MEDS: NOREPINEPHRINE 8 MG/250ML KIT 250 ML IV SCH (23:39)
[2024-05-23] VITALS (108 sets, daily range): BP systolic 76–126; BP diastolic 49–77; PULSE 91–108; RESP 10–31; TEMP 97.9–99.7; O2SAT 93–100
[2024-05-23] MEDS: MEROPENEM 1GM IVPB 50 ML IV ONE (00:39)
[2024-05-23 04:27] LABS: Hematocrit 41.2 % (41.0-53.0); Hemoglobin 13.8 g/dL (13.5-17.5); Mean Corpuscular Hemoglobin 28.4 pg (28.0-32.0); Mean Corpuscular Hgb Conc. 33.6 g/dL (32.0-36.0); Mean Corpuscular Volume 84.6 fL (80.0-100.0); Platelet Count (auto) 243 10^3/uL (140-450); Red Blood Cells 4.87 10^6/uL (4.5-5.90); Red Cell Distribution Width 15.3 % (11.8-14.3)
[2024-05-23 04:29] LABS: Basophils % (manual) 0 (0.0-2.0); Blast Cells 0; Eosinophils % (manual) 0 (0-7); Metamyelocytes % 0; Myelocytes % 0; Promyelocytes % 0; Reactive Lymphocytes 0
[2024-05-23 04:39] LABS: Albumin 3.3 g/dL (3.2-4.8); Anion Gap 20 (5-15); BUN/Creatinine Ratio 11.5 (10.0-20.0); Carbon Dioxide 22 mmol/L (20-31); Potassium 4.8 mmol/L (3.5-5.1); Sodium 136 mmol/L (136-145)
[2024-05-23 04:51] LABS: Alanine Aminotransferase > 6000 U/L (7-40); Alkaline Phosphatase 132 U/L (46-116); Aspartate Aminotransferase > 6000 U/L (13-40); Bilirubin, Total 1.3 mg/dL (0.2-1.0); Blood Urea Nitrogen 33 mg/dL (9-23); Calcium 8.6 mg/dL (8.7-10.4); Chloride 94 mmol/L (98-107); Glucose 419 mg/dL (74-106); Total Protein 5.5 g/dL (5.7-8.2)
[2024-05-23] MEDS ORDERED: DEXTROSE (50%) 50ML SYRG IV PRN ×4 (05:00→16:15)
--- NOTE | 2024-05-23 05:17 | DVH ---
CHEST RADIOGRAPH Indication: Pain Technique: Single frontal view of the chest was obtained COMPARISON: XY CHEST PORTABLE on DOS: 05/22/24, XY CHEST PORTABLE on DOS: 05/22/24, XY CHEST XRAY 1 V IEW on DOS: 05/20/24 FINDINGS: Lines and Tubes: Endotracheal tube is slightly high in position. Lungs: Pulmonary vascular congestion Pleura: No effusion. No pneumothorax. Cardiomediastinal contours: Unremarkable Bones: Unremarkable IMPRESSION: Recommend advancement of endotracheal tube by 2 cm.
[2024-05-23] MEDS: ACCU-CHEK COMFORT CURVE STRIP VI SCH ×3 (05:41→17:34)
[2024-05-23] MEDS: InsuLIN REG 1unit/0.01ml Soln (100units/ml) SC SCH ×3 (05:42→17:35)
[2024-05-23 07:57] LABS: Base Excess -6.4 mmol/L (-2.0-3.0)
[2024-05-23 09:26] LABS: Band Neutrophils % (manual) 10; Lymphocytes % (manual) 13 (10.0-50.0); Monocytes % (manual) 8 (0-12); Platelet Estimate Adequate
[2024-05-23] MEDS: INSULIN LANTUS (GLARGINE) 1 /0.01ml (100units/ml) SC SCH (10:07)
[2024-05-23] MEDS: MEROPENEM 1GM IVPB 50 ML IV SCH (10:08)
--- NOTE | 2024-05-23 10:11 | DVHPNRES ---
Progress Note Date Seen: May 23, 2024 Resident Creating Document: MARCOS WHITE RESIDENT Medical Necessity Reason Pt with a Central, PICC or Fol: Yes The following are medically ne: Central Line, Posey Catheter Subjective Review of Systems Chief complaint for admission: 74-year-old man with Past medical history includes paroxysmal atrial fibrillation on Cardizem ER and Pradaxa therapy BID, diabetes mellitus type 2, dyslipidemia, basal cell skin carcinoma, emphysema, and a tobacco history x 79.5 pack-years, who presented to the emergency room from a local [facility] on 05/19/24 via EMS with a chief complaint shortness of breath since Monday. Patient reports worsening shortness of breath associated with palpitations, epigastric pain, bilateral jaw pain, and chest pain described as substernal, pressure-like, and non provoked. The patient also endorses increased fatigue and dizziness when working on his yard for approximately 30 min-1hr at a time which requires him to stop his activities. Given the aforementioned symptoms, the patient presented to a local [facility] where he underwent a 12 lead electrocardiogram and found to be in an atrial fibrillation rhythm with rapid ventricular rate in the 110s bpm. Upon arrival to the emergency room he underwent a subsequent 12 lead electrocardiogram revealing an atrial fibrillation rhythm at a controlled rate. The patient was found in a normal sinus rhythm at time of assessment. Followed up with his primary ward attendant at [facility] approximately two years ago. Reports undergoing a previous transthoracic echocardiogram and treadmill stress test with unremarkable results. Denies undergoing invasive cardiac procedures in the past. He underwent cardiac catheterization on 05/21/2024. This afternoon patient was found to be in severe metabolic acidosis. He was tachypneic, using accessory muscles and in severe respiratory distress. Emergent pulmonary consultation was called for intubation and mechanical ventilator management. Patient had cardiac arrest and code blue was called yesterday evening, ROSC obtained after 5-7 minute of CPR. Patient seen and examined at bedside in ICU, Sedated, intubated on mechanical ventilator. Overnight events reviewed. Objective vital signs Vital Sign Date Time Temp Pulse Resp B/P (MAP) Pulse Ox O2 Delivery O2 Flow Rate FiO2 05/23/24 08:29 79/51 05/23/24 08:13 94 30 100 60 05/23/24 07:00 99.3 210.7 05/23/24 06:31 Mechanical Ventilator+ 05/22/24 13:06 2 Total Intake and Output 12/11/24 12/11/24 12/12/24 15:00 23:00 07:00 Intake Total 300 ml 1021.50 ml 2079.25 ml Output Total 50 ml Balance 300 ml 1021.50 ml 2029.25 ml medications Current Medications Medications Dose Ordered Sig/Estela Route Start Time Stop Time Status Last Admin Dose Admin Morphine Sulfate 2 mg Q4HPRN PRN IV 05/19/24 17:00 05/22/24 04:15 2 MG Nitroglycerin 0.4 mg Q5MINP PRN SL 05/19/24 17:00 Albuterol 2.5 mg Q4HPRN PRN NEB 05/19/24 17:15 Ipratropium [place] 0.5 mg Q4HPRN PRN NEB 05/19/24 17:15 Norepinephrine Bitartrate 250 ml @ 3.75 mls/hr Q24H IV 05/22/24 18:30 05/23/24 08:29 56.25 MLS/HR Phenylephrine HCl 250 ml @ 30 mls/hr Q8H20M IV 05/22/24 19:45 05/23/24 07:20 67.5 MLS/HR Vasopressin 20 units/Sodium Chloride 100 ml @ 9 mls/hr Q11H7M IV 05/22/24 19:45 05/23/24 03:53 9 MLS/HR Vancomycin HCl 0 ml @ 0 mls/hr UD IV 05/22/24 20:15 Propofol 100 ml @ 2.538 mls/ hr Q24H IV 05/22/24 21:30 Midazolam HCl 50 ml @ 1 mls/hr Q24H IV 05/22/24 21:30 05/23/24 06:45 3 MLS/HR Fentanyl Citrate 250 ml @ 2.5 mls/hr Q24H IV 05/22/24 21:30 05/22/24 21:30 2.5 MLS/HR Meropenem 50 ml @ 17 mls/hr Q12H IV 05/23/24 11:00 05/23/24 10:08 17 MLS/HR Sodium Bicarbonate 50 ml/ Sodium Chloride 1,050 ml @ 200 mls/hr Q5H15M IV 05/22/24 23:00 05/23/24 08:32 200 MLS/HR Diagnostic Test (Pha) 1 strip Q6HR 05/23/24 06:00 05/23/24 05:41 1 STRIP Insulin Human Regular Q6HR SC 05/23/24 06:00 05/23/24 05:42 10 UNITS Dextrose 50 ml UD PRN IV 05/23/24 05:00 Insulin Glargine 20 units DAILY@1000 SC 05/23/24 10:00 05/23/24 10:07 20 UNITS Pantoprazole Sodium 40 mg DAILY IV 05/23/24 10:00 UNV Examination Patient lying in bed, under sedoanalgesia due to mechanical ventilation General: RASS -3, afebrile, mucosae are moist Cardiovascular: Normal S1 and S2. No murmurs, gallops or rubs Respiratory: Mechanically assisted ventilation, equal bilateral airway entree. Clear lung sounds on auscultation Abdomen: Soft, nontender, no organomegaly, normal bowel sounds MSK/skin: Mobilization of limbs cannot be evaluated. Skin is dry and warm Neurological: Orientation cannot be assessed. No apparent motor no sensitive deficits. Pupils are isocoric and reactive laboratory and microbiology Laboratory Tests 05/23/24 03:00 Test 05/23/24 03:00 Range/Units Serum Glucose 419 *H 74-106 mg/dL Microbiology Date/Time Source Procedure Growth Status 05/19/24 18:00 Voided Urine Urine Culture - Final Complete 05/19/24 16:40 Blood Blood Culture - Preliminary NO GROWTH AFTER 72 HOURS OF INCUBATION. Resulted Problem List/Assessment/Plan Problem List/Assessment/Plan Neurology : - Patient is sedated Cardiovascular : # cardiac arrest S/P CPR # AFib with RVR #Stable angina -s/p C # dyslipidemia - cardiology on board Respiratory : # Acute hypoxic respiratory failure due to possible pneumonia # septic shock due to pneumonia # possible Gm +/- bacterial Pneumonia # Emphysema with tobacco dependence - now on mechanical ventilation ( FiO2 70%, PEEP: 8, F: 30, Vt: 650) - continue empiric antibiotic, meropenem and vancomycin - continue breathing treatment Genitourinary: # Acute kidney injury secondary to hemodynamically mediated - avoid nephrotoxic agents - nephrology consult Gastrointestinal : # history of constipation # acute transaminitis secondary to shock liver - monitor liver function Infectious Disease : # septic shock due to pneumonia - continue antibiotic, meropenem and vancomycin Endocrine : # Type 2 diabetes mellitus - hemoglobin A1c on 05/19/2024: 6.8 - insulin SS - monitor blood glucose Skin : # basal cell skin carcinoma Hematology : # leukocytosis due to pneumonia - monitor morning labs # possible PVD - ordered lower extremity arterial Doppler # rule out DVT - lower extremity Venous Doppler ordered Nutrition : Prophylaxis for PUD : Protonix IV 40 mg daily Prophylaxis for DVT: Waiting for CT head to start blood thinner Drips Fentanyl 50 Versed 3 NE 30 Vasopressin 0.03 Neosyn: 108 Invasive access Opsey catheter 05/22/24 Endotracheal tube 05/22/24 Rt Femoral central line 05/22/24 Goal of care discussed with daughter, sister: Full code for now Critical Care time spent 82 minutes including patient care, chart review and updating family, excluding procedure. Case discussed with Dr. Fontenot Plan discussed with: Daughter (Sister, RN ), Other My Orders My Orders Orders - MARCOS WHITE Procedure Category Date Status Time Pantoprazole PHA 05/23/24 Logged (Protonix) 10:00 Date of Service: May 23, 2024 Billing Provider: ISACC FONTENOT MD Common Visit Codes: 75376-[id number] CARE 30-74 MIN, 21754-[id number] CARE-EACH +30MIN MARCOS WHITE May 23, 2024 10:11 ISACC FONTENOT MD May 26, 2024 12:07
[2024-05-23] MEDS: SODIUM BICARB 50mEq/50ml Vial 50 ML in SOD CHL 0.45% 1,000 ML IV SCH (11:00)
[2024-05-23] MEDS: PANTOPRAZOLE 40 MG/10 ML VIAL INJ IV SCH (11:21)
--- NOTE | 2024-05-23 12:00 | DVHSR ---
APPROVED REPORT EXAM: Two-dimensional and M-mode echocardiogram with Doppler and color Doppler. INDICATION Post cardiac arrest RISK FACTORS Height: 6'7", Weight: 187 DIMENSIONS LVDd3.2 (3.8-5.7cm)LA (2D)3.0 (1.9-4.0cm)Aortic Root3.7 (2.0-3.7cm) LVDs2.5 (2.5-4.0cm)LA (MM) (1.9-4.0cm)Aortic Cusp Exc2.0 (1.5-2.0cm) EF (%) 48.0 (55-70%)Rt. Atrium (1.9-4.0cm)Asc. Aorta cm IVSd1.3 (0.7-1.1cm)RV (D) (1.8-2.4cm) PWd0.8 (0.7-1.1cm) Mitral Valve MitralMitral Stenosis E/A ratio0.02D MVAcm2 Aortic Valve Aortic ValveAortic Stenosis LVOT Diameter2.4 (1.8-2.4cm)Doppler AVAcm2 Pulmonic Valve V20.82m/s Other Information Quality : Technically LimitedRhythm : Technically limited study due to body habitus and on vent Conclusion Normal left ventricular size and dimension. Normal left ventricular systolic function estimated ejec tion fraction 55%. There is a diastolic dysfunction is mild septal bounce keeping possible effusive constrictive pericarditis Normal ventricular size and dimension ventricular systolic function Normal biatrial size and dimension. Normal aortic valve structure function function. Normal mitral valve structure and function. Normal tricuspid structure and function The pulmonary valve is grossly normal. There is a small pericardial effusion. That has increased mildly from previous echocardiogram . No clear evidence of pericardial tamponade. There is biatrial pleural effusion.
--- NOTE | 2024-05-23 12:37 | DVHPN2 ---
Consult Progress Note Subjective Other Systems: Patient remains chemically sedated and mechanically ventilated. Patient on multiple vasopressors at time of assessment. Objective vital signs Vital Sign Date Time Temp Pulse Resp B/P (MAP) Pulse Ox O2 Delivery O2 Flow Rate FiO2 05/23/24 11:51 92 30 115/72 (86) 99 60 05/23/24 11:45 99.3 210.7 05/23/24 10:00 Mechanical Ventilator+ 05/22/24 13:06 2 Total Intake and Output 05/22/24 05/22/24 05/23/24 15:00 23:00 07:00 Intake Total 300 ml 1021.50 ml 2079.25 ml Output Total 50 ml Balance 300 ml 1021.50 ml 2029.25 ml medications Current Medications Medications Dose Ordered Sig/Estela Route Start Time Stop Time Status Last Admin Dose Admin Morphine Sulfate 2 mg Q4HPRN PRN IV 05/19/24 17:00 05/22/24 04:15 2 MG Nitroglycerin 0.4 mg Q5MINP PRN SL 05/19/24 17:00 Albuterol 2.5 mg Q4HPRN PRN NEB 05/19/24 17:15 Ipratropium [place] 0.5 mg Q4HPRN PRN NEB 05/19/24 17:15 Norepinephrine Bitartrate 250 ml @ 3.75 mls/hr Q24H IV 05/22/24 18:30 05/23/24 08:29 56.25 MLS/HR Phenylephrine HCl 250 ml @ 30 mls/hr Q8H20M IV 05/22/24 19:45 05/23/24 11:23 67.5 MLS/HR Vasopressin 20 units/Sodium Chloride 100 ml @ 9 mls/hr Q11H7M IV 05/22/24 19:45 05/23/24 03:53 9 MLS/HR Vancomycin HCl 0 ml @ 0 mls/hr UD IV 05/22/24 20:15 Propofol 100 ml @ 2.538 mls/ hr Q24H IV 05/22/24 21:30 Midazolam HCl 50 ml @ 1 mls/hr Q24H IV 05/22/24 21:30 05/23/24 06:45 3 MLS/HR Fentanyl Citrate 250 ml @ 2.5 mls/hr Q24H IV 05/22/24 21:30 05/22/24 21:30 2.5 MLS/HR Meropenem 50 ml @ 17 mls/hr Q12H IV 05/23/24 11:00 05/23/24 10:08 17 MLS/HR Diagnostic Test (Pha) 1 strip Q6HR 05/23/24 06:00 05/23/24 11:29 1 STRIP Dextrose 50 ml UD PRN IV 05/23/24 05:00 Insulin Glargine 20 units DAILY@1000 SC 05/23/24 10:00 05/23/24 10:07 20 UNITS Pantoprazole Sodium 40 mg DAILY IV 05/23/24 10:00 05/23/24 11:21 40 MG Sodium Bicarbonate 50 ml/ Sodium Chloride 1,050 ml @ 125 mls/hr Q8H24M IV 05/23/24 11:00 Diagnostic Test (Pha) 1 strip IQ4HR 05/23/24 12:00 Insulin Human Regular IQ4HR SC 05/23/24 12:00 Dextrose 50 ml UD PRN IV 05/23/24 11:00 Examination: GENERAL:Abnormal, LUNGS:Abnormal (Mechanically ventilated FIO2 60%, PEEP 8.0), CVS:Normal, NEURO:Abnormal (Chemically sedated) laboratory and microbiology Laboratory Tests 05/23/24 03:00 Test 05/23/24 03:00 Range/Units Serum Glucose 419 *H 74-106 mg/dL Problem List/Assessment/Plan Problem List/Assessment/Plan Cardiopulmonary arrest status post CPR with return of spontaneous circulation Sepsis with PNA ?Ischemic bowel Coronary artery disease ruled out Paroxysmal atrial fibrillation with RVR, now NSR, on Cardizem and Pradaxa Circumferential pericardial effusion, small Sri-vrfjanv-tgqesayxi diabetes mellitus, HgbA1C 6.8% Basal cell skin cancer Emphysema with tobacco dependence Smoking history times 79.5 years Shock liver Acute kidney injury Plan/Recommendation (Dr. Hyde) Patient seen and examined at bedside with . The patient with anginal complains underwent a transthoracic echocardiogram revealing a LVEF of 60% as well as a cardiac catheterization revealing no significant coronary artery disease. On 05/22/2024, the patient became tachypneic after attempting to have a bowel movement. A code assist was called and the patient was urgently intubated. During intubation, the patient was noted to become bradycardic and eventually lost pulses. ACLS protocol was initiated and the patient had a return of spontaneous circulation. A repeat transthoracic echocardiogram was performed at this time and shows no significant changes from previous echocardiogram. Continue vasopressors for hemodynamic support. Consider ischemic bowel workup. Antibiotics per primary care team. Reinitiate Pradaxa, antiarrhythmic agent flecainide and Cardizem when appropriate. There is no further inpatient cardiac workup indicated this time. Please reconsult if needed. Thank you for allowing us to care for this patient. Please call with any questions or concerns. Critical care time spent: 38 minutes. This medical document was created using an electronic medical record system with voice recognition software and computerized dictation system. Although this document has been carefully reviewed, there might still be some phonetic and typographical errors. Occasional wrong-word or ``sound-alike substitutions may have occurred due to the inherent limitations of voice recognition software. These areas are purely typographical due to imperfections of the software programs and do not reflect any compromise in the patient's medical care. Please read the chart carefully and recognize, using context, where these substitutions have occurred. Plan discussed with: Other (Bedside RN) Dietary Evaluation Review Comments: 1) If GI is accessible, pt is stable, consider Glucerna 1.2 @ 55 ml/hr x 24hr goal rate as tolerated 2) If pt remains NPO >3 days consider TPN to meet at least 75% of estimated needs 3) Advance pt diet when medically feasible to a Cardiac/CCHO 60g diet 4) Continue current plan of care Expected Outcomes/Goals: 1) Pt to receive nutrition support within 7 days of NPO status 2) Pt diet to advance 3) F/U in 2-3 days Muscle mass (Non-Severe): Mild Depletion (Moderate) Date of Service: May 23, 2024 Billing Provider: LUI HYDE MD Common Visit Codes: 76746-[id number] CARE 30-[address] May 23, 2024 12:37
[2024-05-23] MEDS: NOREPINEPHRINE BITARTRATE 16 MG in SODIUM CHL 0.9% 234 ML IV SCH (14:00)
[2024-05-23] MEDS: PHENYLEPHRINE INJ 40 MG in SODIUM CHL 0.9% 246 ML IV SCH (14:51)
[2024-05-23] MEDS ORDERED: ACCU-CHEK COMFORT CURVE STRIP VI SCH (18:00)
[2024-05-23] MEDS ORDERED: InsuLIN REG 1unit/0.01ml Soln (100units/ml) SC SCH (18:00)
[2024-05-23] MEDS ORDERED: cefTRIAXone 1GM/50ML D5W 50 ML IV SCH (22:00)
[2024-05-24] VITALS (108 sets, daily range): BP systolic 82–174; BP diastolic 35–92; PULSE 93–146; RESP 8–24; TEMP 96.6–100.2; O2SAT 90–100
[2024-05-24 04:08] LABS: Basophils # (auto) 0.1 10 ^3/uL (0-0.2); Basophils % (auto) 0.3 % (0.0-2.0); Eosinophils # (auto) 0 10 ^3/uL (0-0.8); Eosinophils % (auto) 0.1 % (0.0-7.0); Hematocrit 39.8 % (41.0-53.0); Hemoglobin 13.3 g/dL (13.5-17.5); Lymphocytes # (auto) 1.5 10 ^3/uL (0.4-5.4); Lymphocytes % (auto) 8.7 % (10.0-50.0); Mean Corpuscular Hemoglobin 28.3 pg (28.0-32.0); Mean Corpuscular Hgb Conc. 33.5 g/dL (32.0-36.0); Mean Corpuscular Volume 84.4 fL (80.0-100.0); Monocytes # (auto) 1.9 10 ^3/uL (0-1.3); Monocytes % (auto) 10.7 % (0.0-12.0); Neutrophils # (auto) 14.1 10 ^3/uL (1.6-8.6); Neutrophils % (auto) 80.2 % (37.0-80.0); Nucleated Red Blood Cells % 0.2 %; Platelet Count (auto) 188 10^3/uL (140-450); Red Blood Cells 4.71 10^6/uL (4.5-5.90); Red Cell Distribution Width 15.6 % (11.8-14.3); White Blood Cell 17.6 10^3/uL (4.4-10.8)
[2024-05-24 04:31] LABS: Anion Gap 13 (5-15); BUN/Creatinine Ratio 12.8 (10.0-20.0); Carbon Dioxide 27 mmol/L (20-31); Sodium 137 mmol/L (136-145)
[2024-05-24 05:10] LABS: Alanine Aminotransferase 4615 U/L (7-40); Alkaline Phosphatase 171 U/L (46-116); Bilirubin, Total 2.2 mg/dL (0.2-1.0); Blood Urea Nitrogen 47 mg/dL (9-23); Calcium 7.7 mg/dL (8.7-10.4); Chloride 97 mmol/L (98-107); Glucose 225 mg/dL (74-106)
--- NOTE | 2024-05-24 05:33 | DVH ---
CHEST RADIOGRAPH Indication: intubated Technique: Single frontal view of the chest was obtained COMPARISON: XY CHEST PORTABLE on DOS: 05/23/24, XY CHEST PORTABLE on DOS: 05/22/24, XY CHEST PORTABLE on DOS: 05/22/24 FINDINGS: Lines and Tubes: Endotracheal tube, enteric catheter in satisfactory position. Lungs: Multifocal airspace disease. Pleura: Small left pleural effusion. No pneumothorax. Cardiomediastinal contours: Unremarkable Bones: Unremarkable IMPRESSION: Lines and tubes in satisfactory position. No significant interval change.
[2024-05-24] MEDS: METOPROLOL TARTRATE 1MG/1ML-5ML VIAL IV ONE (06:36)
[2024-05-24 06:51] LABS: Base Excess -2.9 mmol/L (-2.0-3.0)
[2024-05-24] MEDS: DIGOXIN (250MCG/ML) 2 ML AMPULE IV ONE (08:36)
[2024-05-24] MEDS: MAGNESIUM SULFATE 1GM/100ML 100 ML IV ONE (08:36)
--- NOTE | 2024-05-24 10:46 | DVH ---
Left Lower Extremity Arterial Duplex Date: 05/24/2024 09:24 AM Clinical History: Pain, Rule out PVD Comparison: None Technique: Duplex Doppler evaluation including color Doppler and spectral/pulsed waveform analysis of the left e xtremity arteries was performed. Finding: LEFT: Peak systolic velocities are as follows: [employer]ATIONS [employer]GER 53 cm/s Deep femoral 108 cm/s SFA proximal 85 cm/s SFA mid-portion 113 cm/s SFA distal 78 cm/s Popliteal 39 cm/s Posterior tibial 32 cm/s Dorsalis pedis 21 cm/s The waveforms are monophasic in the left posterior tibial artery and dorsalis pedis artery. REFERENCE VALUES, [facility] ([facility]) vascular Imaging Lab Criteria: Peak systolic velocity ranges (in cm/sec) are as follows: <150 cm/s - <20 % stenosis 150-200 cm/s - 20-49% stenosis 200-300 cm/s - 50-75% stenosis >300 cm/s -> 75% stenosis IMPRESSION: Peripheral vascular disease in the left dorsalis pedis artery and left posterior tibial artery. No he modynamically significant stenosis.
[2024-05-24] MEDS: AMIODARONE HCL 200 MG TAB PO SCH (11:10)
--- NOTE | 2024-05-24 11:59 | DVH ---
BILATERAL LOWER EXTREMITY VENOUS DOPPLER CLINICAL HISTORY: R/O DVT Technique: Duplex Doppler evaluation of the deep venous systems of both lower extremities from the co mmon femoral veins to the popliteal veins including color Doppler and spectral/pulsed waveform analys is was performed. COMPARISON: None FINDINGS: There is occlusive thrombus seen in the right common femoral vein. There is also nonocclusive thrombu s seen in the right superficial femoral and popliteal veins. The left common femoral, superficial femoral, popliteal, posterior tibial and peroneal veins appear patent with normal augmentation, phasicity, compressibility and color-flow. IMPRESSION: 1. Occlusive thrombus in the right common femoral vein and nonocclusive thrombus in the right superfi cial femoral and popliteal veins. 2. There is no sonographic evidence for DVT in the left lower extremity. HS:Y
--- NOTE | 2024-05-24 12:55 | DVH ---
EXAM: CT HEAD WITHOUT CONTRAST HISTORY: S/P Cardiac arrest COMPARISON: None TECHNIQUE: Axial images of the head were obtained and reformatted in coronal and sagittal planes. All CT scans at this medical facility are performed using dose modulation techniques as appropriate t o a performed exam including the following: Automated exposure control was utilized; adjustment of th e MA and/or KV according to patient size; and use of iterative reconstruction technique. CT Dose: CTDI volume is 49.0 mGy. Dose-length product is 874.32 mGy*cm FINDINGS: There is no evidence of acute intracranial hemorrhage, mass, mass effect midline shift. There is no h ydrocephalus or extra-axial fluid collection. Schaefer-white matter differentiation is maintained. There are sinonasal postsurgical changes. There is soft tissue density filling in the right upper zoe al cavity and ethmoid sinus resection cavity extending into the right frontal sinus. The calvarium i s intact. IMPRESSION: 1. No acute intracranial process. 2. Sinonasal postsurgical changes. Nonspecific soft tissue density filling the right upper nasal cavi ty and ethmoid sinus resection cavity extending into the right frontal sinus. Clinical correlation an d direct visualization is recommended. HS:Y
--- NOTE | 2024-05-24 13:02 | DVH ---
CT ABDOMEN AND PELVIS WITHOUT CONTRAST CLINICAL HISTORY: R/O small bowel obstruction TECHNIQUE: Multiple contiguous axial images of the abdomen and pelvis without intravenous contrast. The images were reformatted degenerate coronal and sagittal reconstructions. All CT scans at this medical facility are performed using dose modulation techniques as appropriate t o a performed exam including the following:Automated exposure control was utilized; adjustment of the MA and/or KV according to patient size; and use of iterative reconstruction technique. Radiation Dose Information: CT Dose: CTDI volume is 21.4 mGy. Dose-length product is 1157.37 mGy*cm Comparison: None FINDINGS: Evaluation of the abdomen and pelvis is limited without intravenous contrast. There is hyperdense sludge filling the gallbladder. The liver, pancreas, kidneys, adrenal glands, and spleen appear within normal limits. There is no gross evidence of abdominal lymphadenopathy. There is no free fluid or free air. An enteric tube terminates in the stomach. The stomach otherwise appears within normal limits. The s mall and large bowel loops demonstrate normal caliber. There are anastomotic sutures in the rectum. Air intermixed with stool and barium is seen throughout the colon. The abdominal aorta and IVC appear within normal limits. There is a Posey catheter within the bladder which is partially decompressed. Pelvic organ appears wi thin normal limits. There is no gross evidence of a pelvic mass. There is no free fluid collection. There are moderate size bilateral pleural effusion with atelectasis versus airspace disease in the christian ng bases. There is moderate size pericardial effusion. There is no acute osseous abnormality. IMPRESSION: 1. There is no acute process in the abdomen and pelvis. There are no dilated small or large bowel loo ps. 2. There is hyperdense sludge filling the gallbladder. 3. Moderate bilateral pleural and pericardial effusions. 4. There are opacities in the lung bases which may represent atelectasis versus airspace disease. HS:Y
[2024-05-24] MEDS: FUROSEMIDE INJECTION 100 MG in SODIUM CHL 0.9% 100 ML IV SCH (13:30)
[2024-05-24] MEDS ORDERED: ATROPINE SULF 1 MG/10ml SYR IV ONE (13:31)
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
--- NOTE | 2024-05-24 14:33 | DVHPNRES ---
Progress Note Date Seen: May 24, 2024 Resident Creating Document: MARCOS WHITE RESIDENT Medical Necessity Reason Pt with a Central, PICC or Fol: Yes The following are medically ne: Central Line, Posey Catheter Subjective Review of Systems Chief complaint for admission: 74-year-old man with Past medical history includes paroxysmal atrial fibrillation on Cardizem ER and Pradaxa therapy BID, diabetes mellitus type 2, dyslipidemia, basal cell skin carcinoma, emphysema, and a tobacco history x 79.5 pack-years, who presented to the emergency room from a local [facility] on 05/19/24 via EMS with a chief complaint shortness of breath since Monday. Patient reports worsening shortness of breath associated with palpitations, epigastric pain, bilateral jaw pain, and chest pain described as substernal, pressure-like, and non provoked. The patient also endorses increased fatigue and dizziness when working on his yard for approximately 30 min-1hr at a time which requires him to stop his activities. Given the aforementioned symptoms, the patient presented to a local [facility] where he underwent a 12 lead electrocardiogram and found to be in an atrial fibrillation rhythm with rapid ventricular rate in the 110s bpm. Upon arrival to the emergency room he underwent a subsequent 12 lead electrocardiogram revealing an atrial fibrillation rhythm at a controlled rate. The patient was found in a normal sinus rhythm at time of assessment. Followed up with his primary horse groomer at [place] approximately two years ago. Reports undergoing a previous transthoracic echocardiogram and treadmill stress test with unremarkable results. Denies undergoing invasive cardiac procedures in the past. He underwent cardiac catheterization on 05/21/2024. This afternoon patient was found to be in severe metabolic acidosis. He was tachypneic, using accessory muscles and in severe respiratory distress. Emergent pulmonary consultation was called for intubation and mechanical ventilator management. Patient had cardiac arrest and code blue was called on 05/22/24 evening, ROSC obtained after 5-7 minute of CPR. Patient seen and examined at bedside in ICU, Sedated, intubated on mechanical ventilator. Overnight events reviewed. Objective vital signs Vital Sign Date Time Temp Pulse Resp B/P (MAP) Pulse Ox O2 Delivery O2 Flow Rate FiO2 05/24/24 13:31 114 22 116/66 (83) 96 50 05/24/24 11:15 99.5 211.1 05/24/24 10:00 Mechanical Ventilator+ 05/22/24 13:06 2 Total Intake and Output 05/23/24 05/23/24 05/24/24 15:00 23:00 07:00 Intake Total 2060.50 ml 1303.375 ml 1629.900 ml Output Total 50 ml 20 ml Balance 2060.50 ml 1253.375 ml 1609.900 ml medications Current Medications Medications Dose Ordered Sig/Estela Route Start Time Stop Time Status Last Admin Dose Admin Morphine Sulfate 2 mg Q4HPRN PRN IV 05/19/24 17:00 05/22/24 04:15 2 MG Nitroglycerin 0.4 mg Q5MINP PRN SL 05/19/24 17:00 Albuterol 2.5 mg Q4HPRN PRN NEB 05/19/24 17:15 Ipratropium [place] 0.5 mg Q4HPRN PRN NEB 05/19/24 17:15 Vasopressin 20 units/Sodium Chloride 100 ml @ 9 mls/hr Q11H7M IV 05/22/24 19:45 05/24/24 09:01 9 MLS/HR Vancomycin HCl 0 ml @ 0 mls/hr UD IV 05/22/24 20:15 Propofol 100 ml @ 2.538 mls/ hr Q24H IV 05/22/24 21:30 Midazolam HCl 50 ml @ 1 mls/hr Q24H IV 05/22/24 21:30 05/24/24 13:14 5 MLS/HR Fentanyl Citrate 250 ml @ 2.5 mls/hr Q24H IV 05/22/24 21:30 05/24/24 00:38 12.5 MLS/HR Meropenem 50 ml @ 17 mls/hr Q12H IV 05/23/24 11:00 05/24/24 11:10 17 MLS/HR Dextrose 50 ml UD PRN IV 05/23/24 05:00 Cancel Insulin Glargine 20 units DAILY@1000 SC 05/23/24 10:00 05/24/24 09:31 20 UNITS Pantoprazole Sodium 40 mg DAILY IV 05/23/24 10:00 05/24/24 09:29 40 MG Dextrose 50 ml UD PRN IV 05/23/24 11:00 Cancel Norepinephrine Bitartrate 16 mg/ Sodium Chloride 250 ml @ 1.875 mls/ hr Q24H IV 05/23/24 14:00 05/24/24 09:59 28.125 MLS/HR Phenylephrine HCl 40 mg/Sodium Chloride 250 ml @ 15 mls/hr [id number] IV 05/23/24 14:00 05/24/24 13:46 52.5 MLS/HR Diagnostic Test (Pha) 1 strip Q6HR 05/23/24 18:00 05/24/24 11:49 1 STRIP Insulin Human Regular Q6HR SC 05/23/24 18:00 05/24/24 11:54 6 UNITS Dextrose 50 ml UD PRN IV 05/23/24 16:15 Amiodarone HCl 200 mg Q12HR PO 05/24/24 11:00 05/24/24 11:10 200 MG Albumin Human 50 ml @ 100 mls/hr Q8H IV 05/24/24 13:30 05/25/24 05:59 Furosemide 100 mg/ Sodium Chloride 110 ml @ 11 mls/hr Q10H IV 05/24/24 13:30 Enoxaparin Sodium 70 mg Q12HR SC 05/24/24 22:00 UNV Examination Patient lying in bed, under sedoanalgesia due to mechanical ventilation General: RASS -3, afebrile, mucosae are moist Cardiovascular: Normal S1 and S2. No murmurs, gallops or rubs Respiratory: Mechanically assisted ventilation, equal bilateral airway entree. Clear lung sounds on auscultation Abdomen: Soft, nontender, no organomegaly, normal bowel sounds MSK/skin: Mobilization of limbs cannot be evaluated. Skin is dry and warm Neurological: Orientation cannot be assessed. No apparent motor no sensitive deficits. Pupils are isocoric and reactive laboratory and microbiology Laboratory Tests 05/24/24 03:00 Test 05/24/24 03:00 Range/Units Serum Glucose 225 #H 74-106 mg/dL Microbiology Date/Time Source Procedure Growth Status 05/22/24 20:42 Trachea Gram Stain - Final Resulted 05/22/24 20:42 Trachea Respiratory Culture - Preliminary Resulted 05/22/24 20:03 Blood Blood Culture - Preliminary NO GROWTH AFTER 24 HOURS OF INCUBATION. Resulted 05/19/24 18:00 Voided Urine Urine Culture - Final Complete Problem List/Assessment/Plan Problem List/Assessment/Plan Neurology : - Patient is sedated Cardiovascular : # cardiac arrest S/P CPR # AFib with RVR #Stable angina -s/p [facility] # dyslipidemia - cardiology on board - amiodarone 200 mg b.i.d. consider amiodarone drip if AFib with RVR persist Respiratory : # Acute hypoxic respiratory failure due to possible pneumonia # septic shock due to pneumonia # possible Gm +/- bacterial Pneumonia # Emphysema with tobacco dependence - now on mechanical ventilation ( FiO2 40%, PEEP: 8, F: 22, Vt: 500) - continue empiric antibiotic, meropenem and vancomycin - continue breathing treatment Genitourinary: # Acute kidney injury secondary to hemodynamically mediated - avoid nephrotoxic agents - nephrology consult Gastrointestinal : # history of constipation # acute transaminitis secondary to shock liver - monitor liver function Infectious Disease : # septic shock due to pneumonia - continue antibiotic, meropenem and vancomycin Endocrine : # Type 2 diabetes mellitus - hemoglobin A1c on 05/19/2024: 6.8 - insulin SS - monitor blood glucose Skin : # basal cell skin carcinoma Hematology : # leukocytosis due to pneumonia - monitor morning labs # PVD - lower extremity arterial Doppler shows: Peripheral vascular disease in the left dorsalis pedis artery and left posterior tibial artery. #Right LE DVT - lower extremity Venous Doppler shows: Occlusive thrombus in the right common femoral vein and nonocclusive thrombus in the right superficial femoral and popliteal veins. - start Lovenox 70 mg sc b.i.d. Nutrition : Prophylaxis for PUD : Protonix IV 40 mg daily Prophylaxis for DVT: Lovenox 70 mg SC BID Drips Fentanyl 50 Versed 3 NE 30 Vasopressin 0.03 Neosyn: 54 Invasive access Posey catheter 05/22/24 Endotracheal tube 05/22/24 Rt Femoral central line 05/22/24 Goal of care discussed with daughter, sister: Full code for now Critical Care time spent 83 minutes including patient care, chart review and updating family, excluding procedure. Case discussed with Dr. Farah Plan discussed with: Daughter, Other (RN) My Orders My Orders Orders - MARCOS WHITE RESIDENT Procedure Category Date Status Time Chest Xray 1 View XY 05/24/24 Resulted 04:00 Abg W/ Co-Ox RT 05/24/24 Logged 04:00 Lt Low Ext Art Duplex US 05/24/24 Resulted 07:[address] 05/24/24 Resulted 10:29 Mrsa Screen SIMONA 12/13/24 In Process 10:57 *Dr. [facility] CONS 05/24/24 Transmitted -[place] 10:45 Bilat Lower Dvt US 05/24/24 Resulted 10:45 Amiodarone Tablet PHA 05/24/24 In Process (Cordarone Tablet) 11:00 Ct Ab Pel Wo Con-No CT 05/24/24 Resulted Oral Or Iv 12:15 Enoxaparin Sodium PHA 05/24/24 Logged (Lovenox) 22:00 Enoxaparin Sodium PHA 05/24/24 Logged (Lovenox) 14:15 Dietary Evaluation Review Comments: 1) If GI is accessible, pt is stable, consider Glucerna 1.2 @ 55 ml/hr x 24hr goal rate as tolerated 2) If pt remains NPO >3 days consider TPN to meet at least 75% of estimated needs 3) Advance pt diet when medically feasible to a Cardiac/CCHO 60g diet 4) Continue current plan of care Expected Outcomes/Goals: 1) Pt to receive nutrition support within 7 days of NPO status 2) Pt diet to advance 3) F/U in 2-3 days Muscle mass (Non-Severe): Mild Depletion (Moderate) Date of Service: May 24, 2024 Billing Provider: SARAH FARAH MD Common Visit Codes: [id number] CARE 30-74 MIN MARCOS WHITE RESIDENT May 24, 2024 14:33 SARAH FARAH MD May 25, 2024 09:24
[2024-05-24] MEDS: ALBUMIN 25% 50 ML IV SCH (15:32)
[2024-05-24] MEDS: ENOXAPARIN SOD 80 MG/0.8ML SYRINGE SC ONE (15:33)
[2024-05-24] MEDS ORDERED: AMIODARONE HCL 200 MG TAB PO SCH (22:00)
[2024-05-24] MEDS: PHENYLEPHRINE HCL 10 MG/ML VL ONE (22:24)
[2024-05-24] MEDS: PHENYLEPHRINE IV 0 ML IV ONE (22:25)
[2024-05-24] MEDS: AMIODARONE BOLUS KIT 100 ML IV ONE (23:33)
[2024-05-24] MEDS: AMIODARONE 450mg/250ml AE 250 ML IV SCH (23:54)
[2024-05-25] VITALS (107 sets, daily range): BP systolic 92–129; BP diastolic 47–68; PULSE 75–134; RESP 18–25; TEMP 97.9–99.9; O2SAT 93–100
[2024-05-25 04:08] LABS: Hemoglobin 13.9 g/dL (13.5-17.5); Mean Corpuscular Hemoglobin 27.9 pg (28.0-32.0); Mean Corpuscular Hgb Conc. 30.8 g/dL (32.0-36.0); Mean Corpuscular Volume 90.4 fL (80.0-100.0); Platelet Count (auto) 170 10^3/uL (140-450); Red Blood Cells 4.98 10^6/uL (4.5-5.90); Red Cell Distribution Width 16.8 % (11.8-14.3); White Blood Cell 26.1 10^3/uL (4.4-10.8)
[2024-05-25 04:11] LABS: Basophils % (manual) 0 (0.0-2.0); Blast Cells 0; Eosinophils % (manual) 0 (0-7); Metamyelocytes % 0; Myelocytes % 0; Promyelocytes % 0
[2024-05-25 04:59] LABS: Band Neutrophils % (manual) 1; Lymphocytes % (manual) 18 (10.0-50.0); Monocytes % (manual) 13 (0-12); Reactive Lymphocytes 2
[2024-05-25 05:00] LABS: Platelet Estimate Adequate
--- NOTE | 2024-05-25 05:29 | DVH ---
CHEST RADIOGRAPH Indication: Intubated Technique: Single frontal view of the chest was obtained Comparison: XY CHEST XRAY 1 VIEW on DOS: 05/24/24, XY CHEST PORTABLE on DOS: 05/23/24, XY CHEST BRENDA BLE on DOS: 05/22/24 IMPRESSION: The heart is enlarged. There are [id number] bilateral pleural effusions, left greater than ri ght with moderate pulmonary vascular congestion. Endotracheal tube and enteric tube appear similar an d satisfactory in position. No significant interval change.
[2024-05-25] MEDS: AMIODARONE 450mg/250ml AE 250 ML IV SCH (06:39)
[2024-05-25 07:15] LABS: Base Excess -6.1 mmol/L (-2.0-3.0)
[2024-05-25 08:06] LABS: Complement C3 43 mg/dL (82-167)
[2024-05-25 08:12] LABS: Anion Gap 13 (5-15); BUN/Creatinine Ratio 12.2 (10.0-20.0); Carbon Dioxide 25 mmol/L (20-31); Chloride 99 mmol/L (98-107); Sodium 137 mmol/L (136-145)
[2024-05-25 08:25] LABS: Alanine Aminotransferase 2373 U/L (7-40); Albumin 3.1 g/dL (3.2-4.8); Alkaline Phosphatase 193 U/L (46-116); Aspartate Aminotransferase 709 U/L (13-40); Bilirubin, Total 3.8 mg/dL (0.2-1.0); Blood Urea Nitrogen 61 mg/dL (9-23); Calcium 7.4 mg/dL (8.7-10.4); Glucose 199 mg/dL (74-106); Potassium 5.3 mmol/L (3.5-5.1); Total Protein 5.1 g/dL (5.7-8.2)
[2024-05-25 08:36] LABS: Lactic Acid w/Reflex 2.4 mmol/L (0.4-2.0)
[2024-05-25] MEDS: FUROSEMIDE INJECTION 100 MG in SODIUM CHL 0.9% 100 ML IV SCH (10:00)
[2024-05-25] MEDS: InsuLIN REG 1unit/0.01ml Soln (100units/ml) IV ONE (10:33)
--- NOTE | 2024-05-25 10:37 | DVHPN2 ---
Consult Progress Note Subjective Other Systems: Intubated and sedated Objective vital signs Vital Sign Date Time Temp Pulse Resp B/P (MAP) Pulse Ox O2 Delivery O2 Flow Rate FiO2 05/25/24 10:03 119/55 05/25/24 09:17 83 22 98 40 05/25/24 07:45 98.2 208.8 05/25/24 06:00 Mechanical Ventilator+ Total Intake and Output 05/24/24 05/24/24 05/25/24 15:00 23:00 07:00 Intake Total 890.875 ml 920.000 ml 1239.332 ml Output Total 270 ml 200 ml Balance 890.875 ml 650.000 ml 1039.332 ml medications Current Medications Medications Dose Ordered Sig/Estela Route Start Time Stop Time Status Last Admin Dose Admin Morphine Sulfate 2 mg Q4HPRN PRN IV 05/19/24 17:00 05/22/24 04:15 2 MG Nitroglycerin 0.4 mg Q5MINP PRN SL 05/19/24 17:00 Albuterol 2.5 mg Q4HPRN PRN NEB 05/19/24 17:15 Ipratropium [place] 0.5 mg Q4HPRN PRN NEB 05/19/24 17:15 Vasopressin 20 units/Sodium Chloride 100 ml @ 9 mls/hr Q11H7M IV 05/22/24 19:45 05/25/24 10:03 9 MLS/HR Vancomycin HCl 0 ml @ 0 mls/hr UD IV 05/22/24 20:15 Propofol 100 ml @ 2.538 mls/ hr Q24H IV 05/22/24 21:30 Midazolam HCl 50 ml @ 1 mls/hr Q24H IV 05/22/24 21:30 05/25/24 08:17 5 MLS/HR Fentanyl Citrate 250 ml @ 2.5 mls/hr Q24H IV 05/22/24 21:30 05/24/24 19:51 12.5 MLS/HR Meropenem 50 ml @ 17 mls/hr Q12H IV 05/23/24 11:00 05/24/24 22:59 17 MLS/HR Dextrose 50 ml UD PRN IV 05/23/24 05:00 Cancel Insulin Glargine 20 units DAILY@1000 SC 05/23/24 10:00 05/24/24 09:31 20 UNITS Pantoprazole Sodium 40 mg DAILY IV 05/23/24 10:00 05/24/24 09:29 40 MG Dextrose 50 ml UD PRN IV 05/23/24 11:00 Cancel Norepinephrine Bitartrate 16 mg/ Sodium Chloride 250 ml @ 1.875 mls/ hr Q24H IV 05/23/24 14:00 05/25/24 02:48 28.125 MLS/HR Phenylephrine HCl 40 mg/Sodium Chloride 250 ml @ 15 mls/hr [id number] IV 05/23/24 14:00 05/25/24 07:14 52.5 MLS/HR Diagnostic Test (Pha) 1 strip Q6HR 05/23/24 18:00 05/25/24 06:00 1 STRIP Insulin Human Regular Q6HR SC 05/23/24 18:00 05/25/24 06:00 3 UNITS Dextrose 50 ml UD PRN IV 05/23/24 16:15 Amiodarone HCl 200 mg Q12HR PO 05/24/24 11:00 05/24/24 19:57 200 MG Enoxaparin Sodium 70 mg Q24H SC 05/25/24 14:00 Amiodarone HCl 250 ml @ 16.667 mls/ hr Q15H IV 05/25/24 05:30 05/25/24 06:39 16.667 MLS/HR Furosemide 100 mg/ Sodium Chloride 110 ml @ 33 mls/hr Q3H20M IV 05/25/24 09:15 05/25/24 10:00 33 MLS/HR Examination: LUNGS:Abnormal (Rhonchi), CVS:Abnormal (Episode of atrial fibrillation overnight. Currently SR at 63 bpm. Amio gtt. Vasopressor support), NEURO:Abnormal (Sedated) laboratory and microbiology Laboratory Tests 05/25/24 07:29 05/25/24 03:25 Test 05/25/24 07:29 Range/Units Serum Glucose 199 H 74-106 mg/dL Problem List/Assessment/Plan Problem List/Assessment/Plan Problem List/Assessment/Plan Cardiopulmonary arrest status post CPR with return of spontaneous circulation Sepsis with PNA Coronary artery disease ruled out Paroxysmal atrial fibrillation with episode of RVR Circumferential pericardial effusion, small Thc-udlzuuo-mujghxhbs diabetes mellitus, HgbA1C 6.8% Basal cell skin cancer Emphysema with tobacco dependence Smoking history times 79.5 years Shock liver Acute kidney injury Rle DVT Plan/Recommendation (Dr. Hyde) Patient seen and examined at bedside with . Anginal complaints, NSTEMI type 2. Negative coronary angiogram for obstructive CAD. Initial transthoracic echocardiogram with LVEF of 60% . On 05/22/2024, Kush's for tachypnea during bowel movement s/p intubation for airway protection for which patient became bradycardic and eventually lost pulses. ACLS protocol was initiated and the patient had a return of spontaneous circulation. A repeat transthoracic echocardiogram was performed at this time and shows no significant changes from previous echocardiogram. Continue vasopressors for hemodynamic support. CT abdomen negative for acute pathology. 05/25/2024 Patient again overnight went into atrial fibrillation RVR amiodarone drip per protocol, continue on 0.5 milligrams/minute until able to tolerate p.o.. Converted back to sinus rhythm around 4:00 a.m. Full-dose Lovenox. Ultrasound positive for right lower extremity DVT. Reinitiate Pradaxa, antiarrhythmic agent flecainide and Cardizem when appropriate. Continued on Lasix drip per Nephrology. Monitor I&Os. Thank you for allowing us to care for this patient. Please call with any questions or concerns. Critical care time spent: 42 minutes. This medical document was created using an electronic medical record system with voice recognition software and computerized dictation system. Although this document has been carefully reviewed, there might still be some phonetic and typographical errors. Occasional wrong-word or ``sound-alike substitutions may have occurred due to the inherent limitations of voice recognition software. These areas are purely typographical due to imperfections of the software programs and do not reflect any compromise in the patient's medical care. Please read the chart carefully and recognize, using context, where these substitutions have occurred. Plan discussed with: Other (lupillo RN) Dietary Evaluation Review Comments: 1) If GI is accessible, pt is stable, consider Glucerna 1.2 @ 55 ml/hr x 24hr goal rate as tolerated 2) If pt remains NPO >3 days consider TPN to meet at least 75% of estimated needs 3) Advance pt diet when medically feasible to a Cardiac/CCHO 60g diet 4) Continue current plan of care Expected Outcomes/Goals: 1) Pt to receive nutrition support within 7 days of NPO status 2) Pt diet to advance 3) F/U in 2-3 days Muscle mass (Non-Severe): Mild Depletion (Moderate) Date of Service: May 25, 2024 Billing Provider: LUI HYDE MD Common Visit Codes: [id number] INP/OBS CARE(HIGH), [id number] CARE 30-74 MIN KAYLA PAUL [facility] May 25, 2024 10:37
[2024-05-25] MEDS: SODIUM BICARB 8.4% 50Meq/50ml SYR Vial IV ONE (10:40)
[2024-05-25] MEDS: DEXTROSE (50%) 50ML SYRG IV ONE (10:58)
[2024-05-25] MEDS: CALCIUM GLUC 1,000mg/50ml-NS 50 ML IV ONE (11:03)
[2024-05-25 11:06] LABS: Anti-Nuclear Antibody Direct Negative (Negative); Kappa Lite Chain Free Serum 75.3 mg/L (3.3-19.4)
--- NOTE | 2024-05-25 14:01 | DVHPN2 ---
Subjective He has a maximum dose on 3 vasopressors Urine output is low Creatinine is worse White count is worse Changes from previous H/P or p: Changes Eyes: No Pain, No Vision change, No Conjunctivae inflammation, No Eyelid inflammation, No Other, No Redness ENT: No Ear pain, No Ear discharge, No Nose pain, No Nose discharge, No Nose congestion, No Mouth pain, No Mouth swelling, No Throat pain, No Throat swelling, No Other Cardiovascular: No Chest Pain; Palpitations; No Orthopnea, No Paroxysmal Noc. Dyspnea, No Edema, No Lt Headedness, No Other Respiratory: No Cough, No Dry; Shortness of breath; No SOB with excertion, No Wheezing, No Hemoptysis, No Pleuritic Pain, No Sputum, No Other Gastrointestinal: No Nausea, No Vomiting, No Abdominal Pain, No Diarrhea, No Constipation, No Melena, No Hematochezia, No Other Genitourinary: No Dysuria, No Frequency, No Incontinence, No Hematuria, No Retention, No Other Musculoskeletal: No other, No neck pain, No shoulder pain, No arm pain, No back pain, No hand pain, No leg pain, No foot pain Skin: No Rash, No Lesions, No Jaundice, No Bruising, No Other Objective Vitals Vital Signs Date Time Temp Pulse Resp B/P (MAP) Pulse Ox O2 Delivery O2 Flow Rate FiO2 05/25/24 13:20 118/54 05/25/24 12:18 86 22 98 40 05/25/24 07:45 98.2 208.8 05/25/24 06:00 Mechanical Ventilator+ Intake/Output Intake and Output 05/25/24 07:00 Intake Total 3050.207 ml Output Total 470 ml Balance 2580.207 ml Intake Oral 40 ml IV Total 3010.207 ml Output Urine Total 270 ml Chest Tube Drainage Total 200 ml General Appearance: Alert, Oriented X3 HEENT: Atraumatic Lungs: Clear to auscultation Cardiovascular: Regular rate Medications Current Medications Medications Dose Ordered Sig/Estela Route Start Time Stop Time Status Last Admin Dose Admin Morphine Sulfate 2 mg Q4HPRN PRN IV 05/19/24 17:00 05/22/24 04:15 2 MG Nitroglycerin 0.4 mg Q5MINP PRN SL 05/19/24 17:00 Albuterol 2.5 mg Q4HPRN PRN NEB 05/19/24 17:15 Ipratropium [place] 0.5 mg Q4HPRN PRN NEB 05/19/24 17:15 Vasopressin 20 units/Sodium Chloride 100 ml @ 9 mls/hr Q11H7M IV 05/22/24 19:45 05/25/24 10:03 9 MLS/HR Vancomycin HCl 0 ml @ 0 mls/hr UD IV 05/22/24 20:15 Propofol 100 ml @ 2.538 mls/ hr Q24H IV 05/22/24 21:30 Midazolam HCl 50 ml @ 1 mls/hr Q24H IV 05/22/24 21:30 05/25/24 08:17 5 MLS/HR Fentanyl Citrate 250 ml @ 2.5 mls/hr Q24H IV 05/22/24 21:30 05/24/24 19:51 12.5 MLS/HR Meropenem 50 ml @ 17 mls/hr Q12H IV 05/23/24 11:00 05/25/24 12:00 17 MLS/HR Dextrose 50 ml UD PRN IV 05/23/24 05:00 Cancel Insulin Glargine 20 units DAILY@1000 SC 05/23/24 10:00 05/25/24 10:49 20 UNITS Pantoprazole Sodium 40 mg DAILY IV 05/23/24 10:00 05/25/24 10:20 40 MG Dextrose 50 ml UD PRN IV 05/23/24 11:00 Cancel Norepinephrine Bitartrate 16 mg/ Sodium Chloride 250 ml @ 1.875 mls/ hr Q24H IV 05/23/24 14:00 05/25/24 10:54 28.125 MLS/HR Phenylephrine HCl 40 mg/Sodium Chloride 250 ml @ 15 mls/hr [id number] IV 05/23/24 14:00 05/25/24 11:59 52.5 MLS/HR Diagnostic Test (Pha) 1 strip Q6HR 05/23/24 18:00 05/25/24 12:28 1 STRIP Insulin Human Regular Q6HR SC 05/23/24 18:00 05/25/24 12:30 6 UNITS Dextrose 50 ml UD PRN IV 05/23/24 16:15 Amiodarone HCl 200 mg Q12HR PO 05/24/24 11:00 05/24/24 19:57 200 MG Enoxaparin Sodium 70 mg Q24H SC 05/25/24 14:00 Amiodarone HCl 250 ml @ 16.667 mls/ hr Q15H IV 05/25/24 05:30 05/25/24 06:39 16.667 MLS/HR Furosemide 100 mg/ Sodium Chloride 110 ml @ 33 mls/hr Q3H20M IV 05/25/24 09:15 05/25/24 13:20 33 MLS/HR Laboratory Results Laboratory Tests 05/25/24 03:25 05/25/24 07:29 Chemistry Test 05/24/24 14:30 05/25/24 07:29 Albumin Pending 3.1 g/dL (3.2-4.8) L Albumin/Globulin Ratio Pending Total Protein Pending 5.1 g/dL (5.7-8.2) L Calcium Level 7.4 mg/dL (8.7-10.4) L Magnesium Level 2.2 mg/dL (1.6-2.6) LFT Test 05/25/24 07:29 Alanine Aminotransferase (ALT) 2373 U/L (7-40) H Alkaline Phosphatase 193 U/L (46-116) H Aspartate Amino Transferase (AST) 709 U/L (13-40) H Total Bilirubin 3.8 mg/dL (0.2-1.0) H Urinalysis Test 05/19/24 18:00 Urine Color Yellow (Yellow) Urine Clarity Clear (Clear) Urine pH 5.5 (5.0-9.0) Urine Specific [place] 1.019 (1.001-1.035) Urine Protein Trace (Negative) H Urine Ketones Trace (Negative) Urine Blood Negative /uL (Negative) Urine Nitrite Negative (Negative) Urine Bilirubin Negative (Negative) Urine Urobilinogen Normal mg/dL (Negative) Urine Leukocyte Esterase Negative /uL (Negative) Urine RBC 1 /hpf (0 - 3) Urine WBC 2 /hpf (0 - 3) Urine Squamous Epithelial Cells Few /hpf (<5) Urine Bacteria None seen /hpf (None Seen) Urine Hyaline Casts Mod /lpf (0 - 2) Urine Mucus Few (None Seen) Urine Glucose 3+ mg/dL (Normal) H Blood Gas Results Test 05/25/24 07:00 Arterial Blood pH 7.269 (7.350-7.450) FiO2 % 45.0 Microbiology Microbiology Date/Time Source Procedure Growth Status 05/24/24 11:00 Nose MRSA Screen - Final Complete 05/22/24 20:03 Blood Blood Culture - Preliminary NO GROWTH AFTER 48 HOURS OF INCUBATION. Resulted 05/19/24 18:00 Voided Urine Urine Culture - Final Complete Assessment/Plan Assessment/Plan Acute hypoxic respiratory failure most likely due to pneumonia and fluid overload Acute kidney injury hemodynamically mediated concerning for acute tubular necrosis Hyperkalemia Pneumonia Atrial fibrillation Diastolic heart failure Sepsis with septic shock Possible pericarditis DVT of the right lower extremity Peripheral arterial disease Cardiac arrest status post CPR Bradycardia Type 2 diabetes Basal cell skin cancer Plan Add epinephrine for blood pressure support Continue broad-spectrum antibiotic with meropenem and vancomycin Amiodarone drip Lasix IV drip Nephrology is following He might need hemodialysis Discussed with his daughter at the bedside Explained to her the poor prognosis The family is thinking about making him DNR Not stable for transfer Plan discussed with: Daughter, Other Date of Service: May 25, 2024 Billing Provider: MAGDALENA ARAUJO MD Common Visit Codes: [id number] CARE 30-74 MIN MAGDALENA ARAUJO MD May 25, 2024 14:01
[2024-05-25] MEDS: ENOXAPARIN SOD 80 MG/0.8ML SYRINGE SC SCH (14:19)
[2024-05-25] MEDS: EPINEPHrine HCL INJECTION 8 MG in D5W 5% 242 ML IV SCH (14:30)
--- NOTE | 2024-05-25 15:57 | DVHPN ---
DATE: 05/25/2024 PULMONARY FOLLOWUP PRIMARY PHYSICIAN: Dr. Self. I am covering for Dr. Parr. ____ Dr. Ndiaye. The patient has been doing poorly. He is currently on Levophed, vasopressin, Jose Manuel-Synephrine. The patient is also on sedation with fentanyl and Versed. The patient's blood pressure is currently maintained. The patient is not running any fevers. No significant secretions reported by bedside RN. The patient's urine output is decreased. The patient's Lasix has been increased to 30 mg per hour. Past medical history, medications were reviewed. PHYSICAL EXAMINATION: Revealed: VITAL SIGNS: Afebrile, heart rate 86, respiratory rate 22 with a ventilator, blood pressure 112/60, saturations 98% on 40% FiO2. HEENT: Unremarkable and nonresponsive. Good patient ventilator synchrony. NECK: Supple. No JVD. CHEST: Reveals bilateral rales, diminished air entry at bases. COR: S1, S2, is regular now, but apparently had a history of atrial fibrillation. ABDOMEN: Soft. Bowel sounds are present. No tenderness, guarding, rigidity or rebound was noted. EXTREMITIES: No edema. LABORATORY DATA: Lab work was reviewed. WBC 26, hemoglobin 14, hematocrit 45, platelet count 170, 66% neutrophils and 13% monocytes. Blood gases on current vent settings showed pH 7.26, pCO2 of 46, pO2 of 75, bicarbonate 21, saturation is 92. The patient is currently on assist control, tidal volume 500, rate of 22, PEEP of 5 and 45% FiO2. Other lab work ____, potassium 5.3, BUN 61, creatinine 5. Lactic acid 2.4, calcium 7.4, AST is 709, ALT is 2373, albumin is 3.1. Other lab work are all noted. Influenza A and B were negative. Cultures have all so far been unremarkable. Sputum cultures have shown no growth. Chest x-ray was reviewed and shows bilateral small pleural effusions with pulmonary venous congestion. IMPRESSION: Sepsis, possible pneumonia, underlying renal insufficiency, transaminitis. The patient also has a history of paroxysmal atrial fibrillation, non-insulin dependent diabetes. At this time, prognosis is guarded. Can add another week hemodynamic support if needed. Would increase the respiratory rate to 24. I have also decreased the FiO2 to 35%. Titrate further as tolerated to keep saturations greater than 90%. Continue antibiotics. The patient is on meropenem and vancomycin. Continue Protonix for GI prophylaxis. The patient also was noted to have a DVT and is currently also on Lovenox. The patient had previously received amiodarone and now amiodarone tablets. Prognosis remains guarded and critical. Discussed with the patient's family, and daughter as well as Dr. Self, bedside RN. Overall, critical time 45 minutes. Thank you for asking me to see this patient. MD BRISSA [place]/PANTERA/KAY TID: [id number] RECEIPT: [id number] cc: Lauro Ndiaye MD
--- NOTE | 2024-05-25 16:40 | DVHPN2 ---
Progress Note Date Seen: May 25, 2024 Medical Necessity Reason Pt with a Central, PICC or Fol: Yes The following are medically ne: Central Line, Posey Catheter Subjective Patient reports: Feels worse (Patient had episode of atrial fibrillation with rapid ventricular response overnight patient multiple hypotensive episodes. Patient's urine output continues to decline) Review of Systems: CVS:Abnormal, RESPIRATORY:Abnormal Objective vital signs Vital Sign Date Time Temp Pulse Resp B/P (MAP) Pulse Ox O2 Delivery O2 Flow Rate FiO2 05/25/24 16:06 81 24 110/56 (74) 96 35 05/25/24 14:30 99.1 210.4 05/25/24 06:00 Mechanical Ventilator+ Total Intake and Output 05/24/24 05/24/24 05/25/24 14:59 22:59 06:59 Intake Total 902.375 ml 1022.500 ml 1170.165 ml Output Total 270 ml 200 ml Balance 902.375 ml 752.500 ml 970.165 ml medications Current Medications Medications Dose Ordered Sig/Estela Route Start Time Stop Time Status Last Admin Dose Admin Morphine Sulfate 2 mg Q4HPRN PRN IV 05/19/24 17:00 05/22/24 04:15 2 MG Nitroglycerin 0.4 mg Q5MINP PRN SL 05/19/24 17:00 Albuterol 2.5 mg Q4HPRN PRN NEB 05/19/24 17:15 Ipratropium [place] 0.5 mg Q4HPRN PRN NEB 05/19/24 17:15 Vasopressin 20 units/Sodium Chloride 100 ml @ 9 mls/hr Q11H7M IV 05/22/24 19:45 05/25/24 10:03 9 MLS/HR Vancomycin HCl 0 ml @ 0 mls/hr UD IV 05/22/24 20:15 Propofol 100 ml @ 2.538 mls/ hr Q24H IV 05/22/24 21:30 Midazolam HCl 50 ml @ 1 mls/hr Q24H IV 05/22/24 21:30 05/25/24 08:17 5 MLS/HR Fentanyl Citrate 250 ml @ 2.5 mls/hr Q24H IV 05/22/24 21:30 05/24/24 19:51 12.5 MLS/HR Meropenem 50 ml @ 17 mls/hr Q12H IV 05/23/24 11:00 05/25/24 12:00 17 MLS/HR Dextrose 50 ml UD PRN IV 05/23/24 05:00 Cancel Insulin Glargine 20 units DAILY@1000 SC 05/23/24 10:00 05/25/24 10:49 20 UNITS Pantoprazole Sodium 40 mg DAILY IV 05/23/24 10:00 05/25/24 10:20 40 MG Dextrose 50 ml UD PRN IV 05/23/24 11:00 Cancel Norepinephrine Bitartrate 16 mg/ Sodium Chloride 250 ml @ 1.875 mls/ hr Q24H IV 05/23/24 14:00 05/25/24 10:54 28.125 MLS/HR Phenylephrine HCl 40 mg/Sodium Chloride 250 ml @ 15 mls/hr [id number] IV 05/23/24 14:00 05/25/24 11:59 52.5 MLS/HR Diagnostic Test (Pha) 1 strip Q6HR 05/23/24 18:00 05/25/24 12:28 1 STRIP Insulin Human Regular Q6HR SC 05/23/24 18:00 05/25/24 12:30 6 UNITS Dextrose 50 ml UD PRN IV 05/23/24 16:15 Amiodarone HCl 200 mg Q12HR PO 05/24/24 11:00 05/24/24 19:57 200 MG Enoxaparin Sodium 70 mg Q24H SC 05/25/24 14:00 05/25/24 14:19 70 MG Amiodarone HCl 250 ml @ 16.667 mls/ hr Q15H IV 05/25/24 05:30 05/25/24 06:39 16.667 MLS/HR Furosemide 100 mg/ Sodium Chloride 110 ml @ 33 mls/hr Q3H20M IV 05/25/24 09:15 05/25/24 13:20 33 MLS/HR Epinephrine HCl 8 mg/Dextrose 250 ml @ 3.75 mls/hr Q24H IV 05/25/24 14:30 Examination: GENERAL:Abnormal, LUNGS:Abnormal, CVS:Abnormal, SKIN:Abnormal laboratory and microbiology Laboratory Tests 05/25/24 07:29 05/25/24 03:25 Test 05/25/24 07:29 Range/Units Serum Glucose 199 H 74-106 mg/dL Microbiology Date/Time Source Procedure Growth Status 05/24/24 11:00 Nose MRSA Screen - Final Complete 05/22/24 20:03 Blood Blood Culture - Preliminary NO GROWTH AFTER 48 HOURS OF INCUBATION. Resulted 05/19/24 18:00 Voided Urine Urine Culture - Final Complete Problem List/Assessment/Plan Problem List/Assessment/Plan Acute kidney injury hemodynamically mediated concerning for acute tubular necrosis + contrast exposure No previous history of chronic kidney disease Acute respiratory failure Diastolic heart failure Shock with multiorgan dysfunction Atrial fibrillation with rapid ventricular response Possible pericarditis seen on echo Pneumonia rate control Failed diuretic stress dose challenge Currently on Lasix drip but urine output remains minimal Patient currently on amiodarone four episodes of atrial fibrillation with rapid ventricular response. Renal function continues to decline. Discussed with family at bedside patient's medical options including dialysis versus avoidance. Explained that given cardiac sensitivity and current condition patient is high risk for cardiac event during dialysis. Family has now made the patient DNR and feel that dialysis at this time would not be consistent with his long-term wishes. We will continue with medical management at this time. Prognosis is poor Critical care time spent 34 minutes Plan discussed with: Daughter My Orders My Orders Orders - RAVEN PALACIOS MD Procedure Category Date Status Time Sodium Chl 0.9% PHA 05/25/24 In Process (So... W/Furosemide 09:15 Basic Metabolic Panel LAB 05/25/24 Logged 16:34 Dietary Evaluation Review Comments: 1) If GI is accessible, pt is stable, consider Glucerna 1.2 @ 55 ml/hr x 24hr goal rate as tolerated 2) If pt remains NPO >3 days consider TPN to meet at least 75% of estimated needs 3) Advance pt diet when medically feasible to a Cardiac/CCHO 60g diet 4) Continue current plan of care Expected Outcomes/Goals: 1) Pt to receive nutrition support within 7 days of NPO status 2) Pt diet to advance 3) F/U in 2-3 days Muscle mass (Non-Severe): Mild Depletion (Moderate) Critical Care Time (mins): 34 RAVEN PALACIOS MD May 25, 2024 16:40
[2024-05-25 17:34] LABS: Chloride 101 mmol/L (98-107); Potassium 4.8 mmol/L (3.5-5.1); Sodium 139 mmol/L (136-145)
[2024-05-25 17:35] LABS: Anion Gap 11 (5-15); Calcium 7.2 mg/dL (8.7-10.4); Carbon Dioxide 27 mmol/L (20-31)
[2024-05-25 17:40] LABS: BUN/Creatinine Ratio 13.1 (10.0-20.0)
[2024-05-25 17:46] LABS: Blood Urea Nitrogen 70 mg/dL (9-23); Glucose 206 mg/dL (74-106)
[2024-05-26] VITALS (109 sets, daily range): BP systolic 87–126; BP diastolic 53–74; PULSE 82–142; RESP 11–27; TEMP 87.8–100.4; O2SAT 90–100
[2024-05-26 03:20] LABS: Basophils # (auto) 0 10 ^3/uL (0-0.2); Basophils % (auto) 0.2 % (0.0-2.0); Eosinophils # (auto) 0 10 ^3/uL (0-0.8); Hematocrit 33.4 % (41.0-53.0); Lymphocytes # (auto) 1.6 10 ^3/uL (0.4-5.4); Lymphocytes % (auto) 8.5 % (10.0-50.0); Mean Corpuscular Hgb Conc. 33.1 g/dL (32.0-36.0); Mean Corpuscular Volume 84.7 fL (80.0-100.0); Monocytes # (auto) 2.3 10 ^3/uL (0-1.3); Monocytes % (auto) 12.8 % (0.0-12.0); Neutrophils # (auto) 14.4 10 ^3/uL (1.6-8.6); Neutrophils % (auto) 78.5 % (37.0-80.0); Nucleated Red Blood Cells % 0.3 %; Platelet Count (auto) 153 10^3/uL (140-450); Red Blood Cells 3.94 10^6/uL (4.5-5.90); Red Cell Distribution Width 15.6 % (11.8-14.3); White Blood Cell 18.3 10^3/uL (4.4-10.8)
[2024-05-26 03:40] LABS: Anion Gap 12 (5-15); BUN/Creatinine Ratio 12.3 (10.0-20.0); Carbon Dioxide 25 mmol/L (20-31); Chloride 102 mmol/L (98-107); Magnesium 2.2 mg/dL (1.6-2.6); Potassium 4.7 mmol/L (3.5-5.1); Sodium 139 mmol/L (136-145)
[2024-05-26 03:43] LABS: Alkaline Phosphatase 184 U/L (46-116); Aspartate Aminotransferase 326 U/L (13-40); Blood Urea Nitrogen 68 mg/dL (9-23); Glucose 177 mg/dL (74-106)
[2024-05-26 03:44] LABS: Albumin 2.7 g/dL (3.2-4.8); Bilirubin, Total 4.7 mg/dL (0.2-1.0); Calcium 7.4 mg/dL (8.7-10.4); Total Protein 4.7 g/dL (5.7-8.2)
[2024-05-26 03:55] LABS: Alanine Aminotransferase 1502 U/L (7-40)
--- NOTE | 2024-05-26 05:47 | DVH ---
CHEST RADIOGRAPH Indication: vent Technique: Single frontal view of the chest was obtained Comparison: XY CHEST XRAY 1 VIEW on DOS: 05/25/24, XY CHEST XRAY 1 VIEW on DOS: 05/24/24, XY CHEST PO RTABLE on DOS: 05/23/24 IMPRESSION: There is cardiomegaly with small to moderate bilateral pleural effusions and mild pulmonary vascular congestion. Endotracheal tube and enteric tube appear unchanged.
[2024-05-26 08:10] LABS: Base Excess -2.6 mmol/L (-2.0-3.0)
--- NOTE | 2024-05-26 11:28 | MEDREC ---
[facility] Intervention Section I [facility] Intervention: Review courses of therapy (PLEASE CONSIDER TO D/C VANCOMYCIN DUE TO RENAL FUNCTION AND CULTURE RESULTS) MATTHEW CORTES PHARMACIST May 26, 2024 11:28
--- NOTE | 2024-05-26 12:37 | DVHPN2 ---
Subjective FiO2 35% PEEP: 5 Levophed and Vasopressin Lasix drip Fent and Versed drips Amiodarone drip Changes from previous H/P or p: Changes Eyes: No Pain, No Vision change, No Conjunctivae inflammation, No Eyelid inflammation, No Other, No Redness ENT: No Ear pain, No Ear discharge, No Nose pain, No Nose discharge, No Nose congestion, No Mouth pain, No Mouth swelling, No Throat pain, No Throat swelling, No Other Cardiovascular: No Chest Pain; Palpitations; No Orthopnea, No Paroxysmal Noc. Dyspnea, No Edema, No Lt Headedness, No Other Respiratory: No Cough, No Dry; Shortness of breath; No SOB with excertion, No Wheezing, No Hemoptysis, No Pleuritic Pain, No Sputum, No Other Gastrointestinal: No Nausea, No Vomiting, No Abdominal Pain, No Diarrhea, No Constipation, No Melena, No Hematochezia, No Other Genitourinary: No Dysuria, No Frequency, No Incontinence, No Hematuria, No Retention, No Other Musculoskeletal: No other, No neck pain, No shoulder pain, No arm pain, No back pain, No hand pain, No leg pain, No foot pain Skin: No Rash, No Lesions, No Jaundice, No Bruising, No Other Objective Vitals Vital Signs Date Time Temp Pulse Resp B/P (MAP) Pulse Ox O2 Delivery O2 Flow Rate FiO2 05/26/24 11:25 111 24 91/59 (70) 98 35 05/26/24 06:45 99.5 211.1 05/26/24 06:00 Mechanical Ventilator+ Intake/Output Intake and Output 05/26/24 07:00 Intake Total 3244.5493 ml Output Total 1300 ml Balance 1944.5493 ml Intake Oral 10 ml IV Total 3234.5493 ml Output Urine Total 1300 ml General Appearance: Alert, Oriented X3 HEENT: Atraumatic Lungs: Clear to auscultation Cardiovascular: Regular rate Medications Current Medications Medications Dose Ordered Sig/Estela Route Start Time Stop Time Status Last Admin Dose Admin Morphine Sulfate 2 mg Q4HPRN PRN IV 05/19/24 17:00 05/22/24 04:15 2 MG Nitroglycerin 0.4 mg Q5MINP PRN SL 05/19/24 17:00 Albuterol 2.5 mg Q4HPRN PRN NEB 05/19/24 17:15 Ipratropium [place] 0.5 mg Q4HPRN PRN NEB 05/19/24 17:15 Vasopressin 20 units/Sodium Chloride 100 ml @ 9 mls/hr Q11H7M IV 05/22/24 19:45 05/26/24 09:00 9 MLS/HR Vancomycin HCl 0 ml @ 0 mls/hr UD IV 05/22/24 20:15 Propofol 100 ml @ 2.538 mls/ hr Q24H IV 05/22/24 21:30 Midazolam HCl 50 ml @ 1 mls/hr Q24H IV 05/22/24 21:30 05/26/24 10:35 4 MLS/HR Fentanyl Citrate 250 ml @ 2.5 mls/hr Q24H IV 05/22/24 21:30 05/25/24 18:05 7.5 MLS/HR Meropenem 50 ml @ 17 mls/hr Q12H IV 05/23/24 11:00 05/26/24 11:25 17 MLS/HR Dextrose 50 ml UD PRN IV 05/23/24 05:00 Cancel Insulin Glargine 20 units DAILY@1000 SC 05/23/24 10:00 05/26/24 10:00 20 UNITS Pantoprazole Sodium 40 mg DAILY IV 05/23/24 10:00 05/26/24 11:14 40 MG Dextrose 50 ml UD PRN IV 05/23/24 11:00 Cancel Norepinephrine Bitartrate 16 mg/ Sodium Chloride 250 ml @ 1.875 mls/ hr Q24H IV 05/23/24 14:00 05/26/24 02:30 28.125 MLS/HR Phenylephrine HCl 40 mg/Sodium Chloride 250 ml @ 15 mls/hr [id number] IV 05/23/24 14:00 05/25/24 17:07 52.5 MLS/HR Diagnostic Test (Pha) 1 strip Q6HR 05/23/24 18:00 05/26/24 05:32 1 STRIP Insulin Human Regular Q6HR SC 05/23/24 18:00 05/26/24 05:41 3 UNITS Dextrose 50 ml UD PRN IV 05/23/24 16:15 Amiodarone HCl 200 mg Q12HR PO 05/24/24 11:00 05/24/24 19:57 200 MG Enoxaparin Sodium 70 mg Q24H SC 05/25/24 14:00 05/25/24 14:19 70 MG Amiodarone HCl 250 ml @ 16.667 mls/ hr Q15H IV 05/25/24 05:30 05/26/24 11:05 16.667 MLS/HR Furosemide 100 mg/ Sodium Chloride 110 ml @ 33 mls/hr Q3H20M IV 05/25/24 09:15 05/26/24 11:25 33 MLS/HR Epinephrine HCl 8 mg/Dextrose 250 ml @ 3.75 mls/hr Q24H IV 05/25/24 14:30 Laboratory Results Laboratory Tests 05/26/24 03:01 Chemistry Test 05/25/24 17:10 05/26/24 03:01 Calcium Level 7.2 mg/dL (8.7-10.4) L 7.4 mg/dL (8.7-10.4) L Albumin 2.7 g/dL (3.2-4.8) L Magnesium Level 2.2 mg/dL (1.6-2.6) Total Protein 4.7 g/dL (5.7-8.2) L LFT Test 05/26/24 03:01 Alanine Aminotransferase (ALT) 1502 U/L (7-40) H Alkaline Phosphatase 184 U/L (46-116) H Aspartate Amino Transferase (AST) 326 U/L (13-40) H Total Bilirubin 4.7 mg/dL (0.2-1.0) H Urinalysis Test 05/19/24 18:00 Urine Color Yellow (Yellow) Urine Clarity Clear (Clear) Urine pH 5.5 (5.0-9.0) Urine Specific [place] 1.019 (1.001-1.035) Urine Protein Trace (Negative) H Urine Ketones Trace (Negative) Urine Blood Negative /uL (Negative) Urine Nitrite Negative (Negative) Urine Bilirubin Negative (Negative) Urine Urobilinogen Normal mg/dL (Negative) Urine Leukocyte Esterase Negative /uL (Negative) Urine RBC 1 /hpf (0 - 3) Urine WBC 2 /hpf (0 - 3) Urine Squamous Epithelial Cells Few /hpf (<5) Urine Bacteria None seen /hpf (None Seen) Urine Hyaline Casts Mod /lpf (0 - 2) Urine Mucus Few (None Seen) Urine Glucose 3+ mg/dL (Normal) H Blood Gas Results Test 05/26/24 08:05 Arterial Blood pH 7.371 (7.350-7.450) FiO2 % 35.0 Microbiology Microbiology Date/Time Source Procedure Growth Status 05/24/24 11:00 Nose MRSA Screen - Final Complete 05/22/24 20:03 Blood Blood Culture - Preliminary NO GROWTH AFTER 72 HOURS OF INCUBATION. Resulted 05/19/24 18:00 Voided Urine Urine Culture - Final Complete Assessment/Plan Assessment/Plan Acute hypoxic respiratory failure most likely due to pneumonia and fluid overload Acute kidney injury hemodynamically mediated concerning for acute tubular necrosis Hyperkalemia Pneumonia Atrial fibrillation Diastolic heart failure Sepsis with septic shock Possible pericarditis DVT of the right lower extremity Peripheral arterial disease Cardiac arrest status post CPR Bradycardia Type 2 diabetes Basal cell skin cancer Plan 05/25/24: Add epinephrine for blood pressure support Continue broad-spectrum antibiotic with meropenem and vancomycin Amiodarone drip Lasix IV drip Nephrology is following He might need hemodialysis Discussed with his daughter at the bedside Explained to her the poor prognosis The family is thinking about making him DNR Not stable for transfer 05/26/24: Continue IV antibiotics Lasix drip Sedation as needed Amiodarone drip DNR Plan discussed with: Other My Orders Orders - MAGDALENA ARAUJO MD Procedure Category Date Status Time Chest Portable XY 05/26/24 Resulted 06:00 Abg W/ Co-Ox RT 05/26/24 Logged 06:00 D5w 5% (Dextrose 5%) PHA 05/25/24 In Process W/Epinephrine Hcl I 14:30 Date of Service: May 26, 2024 Billing Provider: MAGDALENA ARAUJO MD Common Visit Codes: 17180-MPDHOHAK CARE 30-74 MIN MAGDALENA ARAUJO MD May 26, 2024 12:37
--- NOTE | 2024-05-26 12:37 | DVHPN2 ---
Consult Progress Note Subjective Other Systems: intubated and sedated, No distress noted Objective vital signs Vital Sign Date Time Temp Pulse Resp B/P (MAP) Pulse Ox O2 Delivery O2 Flow Rate FiO2 05/26/24 11:25 111 24 91/59 (70) 98 35 05/26/24 06:45 99.5 211.1 05/26/24 06:00 Mechanical Ventilator+ Total Intake and Output 05/25/24 05/25/24 05/26/24 15:00 23:00 07:00 Intake Total 1173.030 ml 1179.183 ml 892.3363 ml Output Total 300 ml 1000 ml Balance 1173.030 ml 879.183 ml -107.6637 ml medications Current Medications Medications Dose Ordered Sig/Estela Route Start Time Stop Time Status Last Admin Dose Admin Morphine Sulfate 2 mg Q4HPRN PRN IV 05/19/24 17:00 05/22/24 04:15 2 MG Nitroglycerin 0.4 mg Q5MINP PRN SL 05/19/24 17:00 Albuterol 2.5 mg Q4HPRN PRN NEB 05/19/24 17:15 Ipratropium [place] 0.5 mg Q4HPRN PRN NEB 05/19/24 17:15 Vasopressin 20 units/Sodium Chloride 100 ml @ 9 mls/hr Q11H7M IV 05/22/24 19:45 05/26/24 09:00 9 MLS/HR Vancomycin HCl 0 ml @ 0 mls/hr UD IV 05/22/24 20:15 Propofol 100 ml @ 2.538 mls/ hr Q24H IV 05/22/24 21:30 Midazolam HCl 50 ml @ 1 mls/hr Q24H IV 05/22/24 21:30 05/26/24 10:35 4 MLS/HR Fentanyl Citrate 250 ml @ 2.5 mls/hr Q24H IV 05/22/24 21:30 05/25/24 18:05 7.5 MLS/HR Meropenem 50 ml @ 17 mls/hr Q12H IV 05/23/24 11:00 05/26/24 11:25 17 MLS/HR Dextrose 50 ml UD PRN IV 05/23/24 05:00 Cancel Insulin Glargine 20 units DAILY@1000 SC 05/23/24 10:00 05/26/24 10:00 20 UNITS Pantoprazole Sodium 40 mg DAILY IV 05/23/24 10:00 05/26/24 11:14 40 MG Dextrose 50 ml UD PRN IV 05/23/24 11:00 Cancel Norepinephrine Bitartrate 16 mg/ Sodium Chloride 250 ml @ 1.875 mls/ hr Q24H IV 05/23/24 14:00 05/26/24 02:30 28.125 MLS/HR Phenylephrine HCl 40 mg/Sodium Chloride 250 ml @ 15 mls/hr [id number] IV 05/23/24 14:00 05/25/24 17:07 52.5 MLS/HR Diagnostic Test (Pha) 1 strip Q6HR 05/23/24 18:00 05/26/24 05:32 1 STRIP Insulin Human Regular Q6HR SC 05/23/24 18:00 05/26/24 05:41 3 UNITS Dextrose 50 ml UD PRN IV 05/23/24 16:15 Amiodarone HCl 200 mg Q12HR PO 05/24/24 11:00 05/24/24 19:57 200 MG Enoxaparin Sodium 70 mg Q24H SC 05/25/24 14:00 05/25/24 14:19 70 MG Amiodarone HCl 250 ml @ 16.667 mls/ hr Q15H IV 05/25/24 05:30 05/26/24 11:05 16.667 MLS/HR Furosemide 100 mg/ Sodium Chloride 110 ml @ 33 mls/hr Q3H20M IV 05/25/24 09:15 05/26/24 11:25 33 MLS/HR Epinephrine HCl 8 mg/Dextrose 250 ml @ 3.75 mls/hr Q24H IV 05/25/24 14:30 Examination: LUNGS:Abnormal (Intubated), CVS:Normal (Telemetry reviewed consistent with sinus rhythm at 87 beats per minute. No overnight events arrhythmias noted.), NEURO:Normal (Sedated) laboratory and microbiology Laboratory Tests 05/26/24 03:01 Test 05/26/24 03:01 Range/Units Serum Glucose 177 H 74-106 mg/dL Problem List/Assessment/Plan Problem List/Assessment/Plan Problem List/Assessment/Plan Cardiopulmonary arrest status post CPR with return of spontaneous circulation Sepsis with PNA Coronary artery disease ruled out Paroxysmal atrial fibrillation with episode of RVR Circumferential pericardial effusion, small Wma-xtcoohx-clznienos diabetes mellitus, HgbA1C 6.8% Basal cell skin cancer Emphysema with tobacco dependence Smoking history times 79.5 years Shock liver Acute kidney injury Rle DVT Plan/Recommendation (Dr. Hyde) Patient seen and examined at bedside. NSTEMI type 2. S/p Negative coronary angiogram for obstructive CAD. S/p intubation for airway protection for which patient became bradycardic s/p ACLS/CPR with ROSC. Repeat transthoracic echocardiogram with no significant changes from previous echocardiogram, normal EF. Continue vasopressors for hemodynamic support titrate as tolerated. CT abdomen negative for acute pathology. Currently sinus rhythm, continue amiodarone dripat 0.5 mg/min until able to tolerate p.o.. Full-dose Lovenox. Ultrasound positive for right lower extremity DVT. Reinitiate Pradaxa, antiarrhythmic agent flecainide and Cardizem when appropriate. Continued on Lasix drip per Nephrology. Improved urine output overnight Monitor I&Os. Thank you for allowing us to care for this patient. Please call with any questions or concerns. Critical care time spent: 38 minutes. This medical document was created using an electronic medical record system with voice recognition software and computerized dictation system. Although this document has been carefully reviewed, there might still be some phonetic and typographical errors. Occasional wrong-word or ``sound-alike substitutions may have occurred due to the inherent limitations of voice recognition software. These areas are purely typographical due to imperfections of the software programs and do not reflect any compromise in the patient's medical care. Please read the chart carefully and recognize, using context, where these substitutions have occurred. Plan discussed with: Other (Bedside RN) Dietary Evaluation Review Comments: 1) If GI is accessible, pt is stable, consider Glucerna 1.2 @ 55 ml/hr x 24hr goal rate as tolerated 2) If pt remains NPO >3 days consider TPN to meet at least 75% of estimated needs 3) Advance pt diet when medically feasible to a Cardiac/CCHO 60g diet 4) Continue current plan of care Expected Outcomes/Goals: 1) Pt to receive nutrition support within 7 days of NPO status 2) Pt diet to advance 3) F/U in 2-3 days Muscle mass (Non-Severe): Mild Depletion (Moderate) Date of Service: May 26, 2024 Billing Provider: LUI HYDE MD Common Visit Codes: [id number] INP/OBS CARE(HIGH), [id number] CARE 30-74 MIN KAYLA PAUL [facility] May 26, 2024 12:37
[2024-05-26] MEDS ORDERED: Glucerna 1.2 Cal 1Liter BOTTLE GT SCH (14:00)
--- NOTE | 2024-05-26 15:21 | DVHPN2 ---
Progress Note Date Seen: May 26, 2024 Medical Necessity Reason Pt with a Central, PICC or Fol: Yes The following are medically ne: Central Line, Posey Catheter Subjective Patient reports: Other Review of Systems: HEENT:Abnormal, CVS:Abnormal, RESPIRATORY:Abnormal, GI:Abnormal Objective vital signs Vital Sign Date Time Temp Pulse Resp B/P (MAP) Pulse Ox O2 Delivery O2 Flow Rate FiO2 05/26/24 15:00 110/67 05/26/24 13:43 110 25 97 35 05/26/24 06:45 99.5 211.1 05/26/24 06:00 Mechanical Ventilator+ Total Intake and Output 05/25/24 05/25/24 05/26/24 15:00 23:00 07:00 Intake Total 1173.030 ml 1179.183 ml 892.3363 ml Output Total 300 ml 1000 ml Balance 1173.030 ml 879.183 ml -107.6637 ml medications Current Medications Medications Dose Ordered Sig/Estela Route Start Time Stop Time Status Last Admin Dose Admin Morphine Sulfate 2 mg Q4HPRN PRN IV 05/19/24 17:00 05/22/24 04:15 2 MG Nitroglycerin 0.4 mg Q5MINP PRN SL 05/19/24 17:00 Albuterol 2.5 mg Q4HPRN PRN NEB 05/19/24 17:15 Ipratropium [place] 0.5 mg Q4HPRN PRN NEB 05/19/24 17:15 Vasopressin 20 units/Sodium Chloride 100 ml @ 9 mls/hr Q11H7M IV 05/22/24 19:45 05/26/24 09:00 9 MLS/HR Vancomycin HCl 0 ml @ 0 mls/hr UD IV 05/22/24 20:15 Propofol 100 ml @ 2.538 mls/ hr Q24H IV 05/22/24 21:30 Midazolam HCl 50 ml @ 1 mls/hr Q24H IV 05/22/24 21:30 05/26/24 10:35 4 MLS/HR Fentanyl Citrate 250 ml @ 2.5 mls/hr Q24H IV 05/22/24 21:30 05/25/24 18:05 7.5 MLS/HR Meropenem 50 ml @ 17 mls/hr Q12H IV 05/23/24 11:00 05/26/24 11:25 17 MLS/HR Dextrose 50 ml UD PRN IV 05/23/24 05:00 Cancel Insulin Glargine 20 units DAILY@1000 SC 05/23/24 10:00 05/26/24 10:00 20 UNITS Pantoprazole Sodium 40 mg DAILY IV 05/23/24 10:00 05/26/24 11:14 40 MG Dextrose 50 ml UD PRN IV 05/23/24 11:00 Cancel Norepinephrine Bitartrate 16 mg/ Sodium Chloride 250 ml @ 1.875 mls/ hr Q24H IV 05/23/24 14:00 05/26/24 13:37 26.25 MLS/HR Phenylephrine HCl 40 mg/Sodium Chloride 250 ml @ 15 mls/hr [id number] IV 05/23/24 14:00 05/25/24 17:07 52.5 MLS/HR Diagnostic Test (Pha) 1 strip Q6HR 05/23/24 18:00 05/26/24 13:36 1 STRIP Insulin Human Regular Q6HR SC 05/23/24 18:00 05/26/24 13:42 3 UNITS Dextrose 50 ml UD PRN IV 05/23/24 16:15 Amiodarone HCl 200 mg Q12HR PO 05/24/24 11:00 05/24/24 19:57 200 MG Enoxaparin Sodium 70 mg Q24H SC 05/25/24 14:00 05/25/24 14:19 70 MG Amiodarone HCl 250 ml @ 16.667 mls/ hr Q15H IV 05/25/24 05:30 05/26/24 11:05 16.667 MLS/HR Furosemide 100 mg/ Sodium Chloride 110 ml @ 33 mls/hr Q3H20M IV 05/25/24 09:15 05/26/24 15:00 33 MLS/HR Epinephrine HCl 8 mg/Dextrose 250 ml @ 3.75 mls/hr Q24H IV 05/25/24 14:30 Enteral Nutritional Formula 1,000 ml 55ML/HR GT 05/26/24 14:00 Examination: GENERAL:Abnormal, CVS:Abnormal, ABDOMEN:Abnormal, SKIN:Abnormal laboratory and microbiology Laboratory Tests 05/26/24 03:01 Test 05/26/24 03:01 Range/Units Serum Glucose 177 H 74-106 mg/dL Microbiology Date/Time Source Procedure Growth Status 05/24/24 11:00 Nose MRSA Screen - Final Complete 05/22/24 20:03 Blood Blood Culture - Preliminary NO GROWTH AFTER 72 HOURS OF INCUBATION. Resulted 05/19/24 18:00 Voided Urine Urine Culture - Final Complete Problem List/Assessment/Plan Problem List/Assessment/Plan Acute kidney injury hemodynamically mediated concerning for acute tubular necrosis + contrast exposure No previous history of chronic kidney disease Acute respiratory failure Diastolic heart failure Shock with multiorgan dysfunction Atrial fibrillation with rapid ventricular response Possible pericarditis seen on echo Pneumonia UOP increased with lasix drip renal function however continues to worsen Patient currently on amiodarone four episodes of atrial fibrillation with rapid ventricular response. Renal function continues to decline. Discussed with family at bedside patient's medical options including dialysis versus avoidance. Explained that given cardiac sensitivity and current condition patient is high risk for cardiac event during dialysis. Family has now made the patient DNR and feel that dialysis at this time would not be consistent with his long-term wishes. We will continue with medical management at this time. Prognosis is poor Critical care time spent 34 minutes Plan discussed with: Daughter Dietary Evaluation Review Comments: 1) If GI is accessible, pt is stable, consider Glucerna 1.2 @ 55 ml/hr x 24hr goal rate as tolerated 2) If pt remains NPO >3 days consider TPN to meet at least 75% of estimated needs 3) Advance pt diet when medically feasible to a Cardiac/CCHO 60g diet 4) Continue current plan of care Expected Outcomes/Goals: 1) Pt to receive nutrition support within 7 days of NPO status 2) Pt diet to advance 3) F/U in 2-3 days Muscle mass (Non-Severe): Mild Depletion (Moderate) RAVEN PALACIOS MD May 26, 2024 15:21
[2024-05-26] MEDS: FUROSEMIDE INJECTION 100 MG in SODIUM CHL 0.9% 100 ML IV SCH (15:45)
[2024-05-26 18:21] LABS: Chloride 102 mmol/L (98-107); Potassium 4.4 mmol/L (3.5-5.1); Sodium 139 mmol/L (136-145)
[2024-05-26 18:27] LABS: BUN/Creatinine Ratio 12.5 (10.0-20.0)
[2024-05-26 18:28] LABS: Magnesium 2.3 mg/dL (1.6-2.6)
[2024-05-26 18:30] LABS: Blood Urea Nitrogen 70 mg/dL (9-23); Calcium 7.8 mg/dL (8.7-10.4); Glucose 161 mg/dL (74-106)
[2024-05-26 19:08] LABS: Anion Gap 12 (5-15); Carbon Dioxide 25 mmol/L (20-31)
--- NOTE | 2024-05-26 20:39 | DVHPN ---
DATE: 05/26/2024 PULMONARY FOLLOWUP PRIMARY PHYSICIAN: Dr. Chandler. SUBJECTIVE: The patient is stable. The patient has been off Jose Manuel-Synephrine, remains on Levophed and vasopressin. Urine output is stable. Lasix has been decreased to 20 mg per hour. The patient remains on Versed and fentanyl. The patient had an episode of atrial fibrillation. The patient remains comfortable, on the current vent settings and sedation. PHYSICAL EXAMINATION: VITAL SIGNS: T-max of 99.5, heart rate is 110, respiratory rate is 27, blood pressure 160/64, saturations 97 on 35% FIO2. NECK: Supple. CHEST: Examination reveals diminished air entry in both bases, bibasilar rales, no wheezing. ABDOMEN: Soft, distended. Bowel sounds normal. No tenderness, guarding. EXTREMITIES: 1-2+ pedal edema. LABWORK: X-ray shows cardiomegaly with moderate bilateral pleural effusion, pulmonary venous congestion. OTHER LABWORK: Noted. WBC 18, hemoglobin 11, hematocrit 33, platelet count 153. Blood gases, pH 7.37, pCO2 of 40, pO2 of 75, saturations 93 on assist control, tidal volume 500, rate of 24, PEEP of 5, 35% FIO2. Other lab work are noted. BUN 68, creatinine 5.52, glucose 177, AST 326, ALT of 1500, alkaline phosphatase 184, albumin 2.7. Influenza A and B were negative. IMPRESSION: Acute respiratory failure, fluid overload, renal insufficiency, sepsis, on hemodynamic support. The patient's family has decided to make the patient DNR. Prognosis remains guarded. We will continue antibiotics. Cardiac followup for intermittent AFib. Continue GI followup. Continue renal followup with Dr. Alvarado. The patient still appears to have some fluid overload and consider increased diuresis; however, also needs to balance with hypotension. Ventilator settings at the current time are adequate. The patient is not weanable at the current time. Continue to keep comfortable with fentanyl and Versed. Amiodarone for atrial fibrillation. The patient is on TPN. Continue Lovenox for DVT prophylaxis. Dr. Parr will resume pulmonary care in the morning. Critical time, 38 minutes. MD BRISSA Hatfield/KADIE TID: [id number] RECEIPT: [id number] cc: MARCOS CHANDLER
[2024-05-27] VITALS (109 sets, daily range): BP systolic 84–121; BP diastolic 53–76; PULSE 91–116; RESP 18–27; TEMP 97.9–99.3; O2SAT 96–100
[2024-05-27 03:56] LABS: Basophils # (auto) 0 10 ^3/uL (0-0.2); Basophils % (auto) 0.2 % (0.0-2.0); Eosinophils # (auto) 0 10 ^3/uL (0-0.8); Hematocrit 34.8 % (41.0-53.0); Hemoglobin 11.8 g/dL (13.5-17.5); Lymphocytes # (auto) 1.7 10 ^3/uL (0.4-5.4); Lymphocytes % (auto) 7.4 % (10.0-50.0); Mean Corpuscular Hemoglobin 28.4 pg (28.0-32.0); Mean Corpuscular Hgb Conc. 33.9 g/dL (32.0-36.0); Mean Corpuscular Volume 83.6 fL (80.0-100.0); Monocytes # (auto) 3.1 10 ^3/uL (0-1.3); Monocytes % (auto) 13.4 % (0.0-12.0); Neutrophils # (auto) 18.3 10 ^3/uL (1.6-8.6); Nucleated Red Blood Cells % 0.1 %; Platelet Count (auto) 111 10^3/uL (140-450); Red Blood Cells 4.16 10^6/uL (4.5-5.90); White Blood Cell 23.1 10^3/uL (4.4-10.8)
[2024-05-27 04:13] LABS: Anion Gap 13 (5-15); Carbon Dioxide 29 mmol/L (20-31); Chloride 100 mmol/L (98-107); Magnesium 2.4 mg/dL (1.6-2.6); Potassium 4.2 mmol/L (3.5-5.1); Sodium 142 mmol/L (136-145)
[2024-05-27 04:14] LABS: Alanine Aminotransferase 945 U/L (7-40); Alkaline Phosphatase 214 U/L (46-116); Aspartate Aminotransferase 147 U/L (13-40); Blood Urea Nitrogen 85 mg/dL (9-23); Calcium 8.5 mg/dL (8.7-10.4); Glucose 140 mg/dL (74-106)
[2024-05-27 04:15] LABS: Total Protein 5.3 g/dL (5.7-8.2)
--- NOTE | 2024-05-27 07:02 | DVH ---
CHEST RADIOGRAPH Indication: vent Technique: Single frontal view of the chest was obtained Comparison: XY CHEST PORTABLE on DOS: 05/26/24, XY CHEST XRAY 1 VIEW on DOS: 05/25/24, XY CHEST XRAY 1 VIEW on DOS: 05/24/24, XY CHEST PORTABLE on DOS: 05/23/24, XY CHEST PORTABLE on DOS: 05/22/24, XY C HEST PORTABLE on DOS: 05/26/24 FINDINGS: There is cardiomegaly with small to moderate bilateral pleural effusions and mild pulmonary vascular congestion. Endotracheal tube and enteric tube appear unchanged. IMPRESSION: Change.
[2024-05-27 07:43] LABS: Base Excess -1.7 mmol/L (-2.0-3.0)
--- NOTE | 2024-05-27 08:27 | DVHPN2 ---
Consult Progress Note Date Seen: May 27, 2024 Subjective Other Systems: No overnight cardiac events reported Objective vital signs Vital Sign Date Time Temp Pulse Resp B/P (MAP) Pulse Ox O2 Delivery O2 Flow Rate FiO2 05/27/24 08:12 107 25 113/70 (84) 98 35 05/27/24 06:45 99.3 210.7 05/27/24 06:00 Mechanical Ventilator+ Total Intake and Output 05/26/24 05/26/24 05/27/24 15:00 23:00 07:00 Intake Total 738.60 ml 709.28 ml 453.05 ml Output Total 850 ml 2725 ml 2500 ml Balance -111.40 ml -2015.72 ml -2046.95 ml medications Current Medications Medications Dose Ordered Sig/Estela Route Start Time Stop Time Status Last Admin Dose Admin Morphine Sulfate 2 mg Q4HPRN PRN IV 05/19/24 17:00 05/22/24 04:15 2 MG Nitroglycerin 0.4 mg Q5MINP PRN SL 05/19/24 17:00 Albuterol 2.5 mg Q4HPRN PRN NEB 05/19/24 17:15 Ipratropium [place] 0.5 mg Q4HPRN PRN NEB 05/19/24 17:15 Vasopressin 20 units/Sodium Chloride 100 ml @ 9 mls/hr Q11H7M IV 05/22/24 19:45 05/27/24 07:42 9 MLS/HR Vancomycin HCl 0 ml @ 0 mls/hr UD IV 05/22/24 20:15 Propofol 100 ml @ 2.538 mls/ hr Q24H IV 05/22/24 21:30 Midazolam HCl 50 ml @ 1 mls/hr Q24H IV 05/22/24 21:30 05/27/24 07:40 6 MLS/HR Fentanyl Citrate 250 ml @ 2.5 mls/hr Q24H IV 05/22/24 21:30 05/26/24 21:57 10 MLS/HR Meropenem 50 ml @ 17 mls/hr Q12H IV 05/23/24 11:00 05/26/24 23:08 17 MLS/HR Dextrose 50 ml UD PRN IV 05/23/24 05:00 Cancel Insulin Glargine 20 units DAILY@1000 SC 05/23/24 10:00 05/26/24 10:00 20 UNITS Pantoprazole Sodium 40 mg DAILY IV 05/23/24 10:00 05/26/24 11:14 40 MG Dextrose 50 ml UD PRN IV 05/23/24 11:00 Cancel Norepinephrine Bitartrate 16 mg/ Sodium Chloride 250 ml @ 1.875 mls/ hr Q24H IV 05/23/24 14:00 05/26/24 23:16 26.25 MLS/HR Phenylephrine HCl 40 mg/Sodium Chloride 250 ml @ 15 mls/hr [id number] IV 05/23/24 14:00 05/25/24 17:07 52.5 MLS/HR Diagnostic Test (Pha) 1 strip Q6HR 05/23/24 18:00 05/27/24 06:30 1 STRIP Insulin Human Regular Q6HR SC 05/23/24 18:00 05/27/24 06:09 2 UNITS Dextrose 50 ml UD PRN IV 05/23/24 16:15 Amiodarone HCl 200 mg Q12HR PO 05/24/24 11:00 05/24/24 19:57 200 MG Enoxaparin Sodium 70 mg Q24H SC 05/25/24 14:00 05/26/24 15:38 70 MG Amiodarone HCl 250 ml @ 16.667 mls/ hr Q15H IV 05/25/24 05:30 05/27/24 02:11 16.667 MLS/HR Epinephrine HCl 8 mg/Dextrose 250 ml @ 3.75 mls/hr Q24H IV 05/25/24 14:30 Enteral Nutritional Formula 1,000 ml 55ML/HR GT 05/26/24 14:00 Furosemide 100 mg/ Sodium Chloride 110 ml @ 22 mls/hr Q5H IV 05/26/24 15:45 05/27/24 01:23 22 MLS/HR Examination: LUNGS:Abnormal (Mechanically ventilated 35% FiO2 PEEP 5.0), CVS:Abnormal (A-fib 110s bpm, on dual vasopressor), SKIN:Abnormal (RLE hyperpigmentation), NEURO:Normal (Chemically sedated. Intact gag reflex. Pinpoint pupils) laboratory and microbiology Laboratory Tests 05/27/24 03:29 Test 05/27/24 03:29 Range/Units Serum Glucose 140 H 74-106 mg/dL Problem List/Assessment/Plan Problem List/Assessment/Plan Sepsis with PNA Paroxysmal atrial fibrillation with episode of RVR Cardiopulmonary arrest s/p ROSC, rule out PE Right lower extremity DVT NSTEMI Type II likely secondary to above Coronary artery disease ruled out, s/p LHC Circumferential pericardial effusion, small Rzu-unugppn-jhehoekth diabetes mellitus, HgbA1C 6.8% Basal cell skin cancer Emphysema with tobacco dependence Smoking history times 79.5 years Shocked liver Acute kidney injury Plan/Recommendation (Dr. Hyde) The patient who presented with c/o fatigue and chest pain underwent a coronary angiogram deemed to be negative for obstructive coronary artery disease. During admission the patient experienced severe respiratory distress and subsequent cardiopulmonary arrest with ROSC status post intubation for airway protection. Repeat transthoracic echocardiogram revealed no significant changes from previous echocardiogram and a normal LVEF of 55-60%. Presents with RLE DVT and suspected PE for which patient will be transitioned from therapeutic Lovenox to Heparin drip given DANA. Continue vasopressors for hemodynamic support and titrate down as tolerated. Continue amiodarone drip per pharmacy protocol, currently atrial fibrillation 110s bpm. Reinitiate Pradaxa therapy, antiarrhythmic agent flecainide, and Cardizem when appropriate. Agree with Lasix drip per Nephrology. Thank you for allowing us to care for this patient. Please call with any questions or concerns. Critical care time spent: 30 minutes. This medical document was created using an electronic medical record system with voice recognition software and computerized dictation system. Although this document has been carefully reviewed, there might still be some phonetic and typographical errors. Occasional wrong-word or ``sound-alike substitutions may have occurred due to the inherent limitations of voice recognition software. These areas are purely typographical due to imperfections of the software programs and do not reflect any compromise in the patient's medical care. Please read the chart carefully and recognize, using context, where these substitutions have occurred. Plan discussed with: Other Dietary Evaluation Review Comments: 1) If GI is accessible, pt is stable, consider Glucerna 1.2 @ 55 ml/hr x 24hr goal rate as tolerated 2) If pt remains NPO >3 days consider TPN to meet at least 75% of estimated needs 3) Advance pt diet when medically feasible to a Cardiac/CCHO 60g diet 4) Continue current plan of care Expected Outcomes/Goals: 1) Pt to receive nutrition support within 7 days of NPO status 2) Pt diet to advance 3) F/U in 2-3 days Muscle mass (Non-Severe): Mild Depletion (Moderate) Date of Service: May 27, 2024 Billing Provider: LUI HYDE MD Cardiology Common Codes: [id number] CARE 30-74 MIN MARIBELL BRICEÑO [facility] May 27, 2024 08:26
[2024-05-27 11:25] LABS: Aspartate Aminotransferase 3694 U/L (13-40)
[2024-05-27] MEDS: FUROSEMIDE INJECTION 100 MG in SODIUM CHL 0.9% 100 ML IV SCH (12:00)
--- NOTE | 2024-05-27 12:05 | DVHPN2 ---
Progress Note Date Seen: May 27, 2024 Medical Necessity Reason Pt with a Central, PICC or Fol: Yes The following are medically ne: Central Line, Posey Catheter Subjective Review of Systems: RESPIRATORY:Abnormal Other Systems: Patient seen and examined by myself in follow-up today Patient remained intubated on ventilator Objective vital signs Vital Sign Date Time Temp Pulse Resp B/P (MAP) Pulse Ox O2 Delivery O2 Flow Rate FiO2 05/27/24 11:12 102 24 107/71 (83) 99 35 05/27/24 06:45 99.3 210.7 05/27/24 06:00 Mechanical Ventilator+ Total Intake and Output 05/26/24 05/26/24 05/27/24 15:00 23:00 07:00 Intake Total 738.60 ml 709.28 ml 453.05 ml Output Total 850 ml 2725 ml 2500 ml Balance -111.40 ml -2015.72 ml -2046.95 ml medications Current Medications Medications Dose Ordered Sig/Estela Route Start Time Stop Time Status Last Admin Dose Admin Morphine Sulfate 2 mg Q4HPRN PRN IV 05/19/24 17:00 05/22/24 04:15 2 MG Nitroglycerin 0.4 mg Q5MINP PRN SL 05/19/24 17:00 Albuterol 2.5 mg Q4HPRN PRN NEB 05/19/24 17:15 Ipratropium [place] 0.5 mg Q4HPRN PRN NEB 05/19/24 17:15 Vasopressin 20 units/Sodium Chloride 100 ml @ 9 mls/hr Q11H7M IV 05/22/24 19:45 05/27/24 07:42 9 MLS/HR Vancomycin HCl 0 ml @ 0 mls/hr UD IV 05/22/24 20:15 Propofol 100 ml @ 2.538 mls/ hr Q24H IV 05/22/24 21:30 Midazolam HCl 50 ml @ 1 mls/hr Q24H IV 05/22/24 21:30 05/27/24 07:40 6 MLS/HR Fentanyl Citrate 250 ml @ 2.5 mls/hr Q24H IV 05/22/24 21:30 05/26/24 21:57 10 MLS/HR Meropenem 50 ml @ 17 mls/hr Q12H IV 05/23/24 11:00 05/27/24 10:54 17 MLS/HR Dextrose 50 ml UD PRN IV 05/23/24 05:00 Cancel Insulin Glargine 20 units DAILY@1000 SC 05/23/24 10:00 05/27/24 10:58 20 UNITS Pantoprazole Sodium 40 mg DAILY IV 05/23/24 10:00 05/27/24 10:53 40 MG Dextrose 50 ml UD PRN IV 05/23/24 11:00 Cancel Norepinephrine Bitartrate 16 mg/ Sodium Chloride 250 ml @ 1.875 mls/ hr Q24H IV 05/23/24 14:00 05/27/24 08:59 24.375 MLS/HR Phenylephrine HCl 40 mg/Sodium Chloride 250 ml @ 15 mls/hr [id number] IV 05/23/24 14:00 05/25/24 17:07 52.5 MLS/HR Diagnostic Test (Pha) 1 strip Q6HR 05/23/24 18:00 05/27/24 06:30 1 STRIP Insulin Human Regular Q6HR SC 05/23/24 18:00 05/27/24 06:09 2 UNITS Dextrose 50 ml UD PRN IV 05/23/24 16:15 Amiodarone HCl 250 ml @ 16.667 mls/ hr Q15H IV 05/25/24 05:30 05/27/24 02:11 16.667 MLS/HR Enteral Nutritional Formula 1,000 ml 55ML/HR GT 05/26/24 14:00 Furosemide 100 mg/ Sodium Chloride 110 ml @ 22 mls/hr Q5H IV 05/26/24 15:45 05/27/24 10:40 22 MLS/HR Heparin Sodium/ Dextrose 250 ml @ 18 mls/hr [id number] IV 05/27/24 08:30 Examination: LUNGS:Normal, CVS:Normal, MSK:Normal laboratory and microbiology Laboratory Tests 05/27/24 03:29 Test 05/27/24 03:29 Range/Units Serum Glucose 140 H 74-106 mg/dL Microbiology Date/Time Source Procedure Growth Status 05/24/24 11:00 Nose MRSA Screen - Final Complete 05/22/24 20:03 Blood Blood Culture - Preliminary NO GROWTH AFTER 72 HOURS OF INCUBATION. Resulted 05/19/24 18:00 Voided Urine Urine Culture - Final Complete Problem List/Assessment/Plan Problem List/Assessment/Plan Acute kidney injury hemodynamically mediated concerning for acute tubular necrosis + contrast exposure Acute respiratory failure , intubated on ventilator Diastolic heart failure Shock with multiorgan dysfunction Atrial fibrillation with rapid ventricular response Possible pericarditis seen on echo Diabetes mellitus type 2 Pneumonia liver cirrhosis Recommendations Increased urine output Check daily for need for hemodialysis, discussed with the sister at the bedside Decrease furosemide 5 milligram/hour IV pressors for blood pressure support Octreotide subcu Strict I&Os Cardiology consult We will continue to follow up Plan discussed with: Other (Nurse) My Orders My Orders Orders - ELVIRA SIMS MD Procedure Category Date Status Time Urine Sodium LAB 05/27/24 Verified 11:59 Urine LAB 05/27/24 Verified Protein/Creatinine Urine Creatinine LAB 05/27/24 Verified 11:59 Dietary Evaluation Review Comments: 1) If GI is accessible, pt is stable, consider Glucerna 1.2 @ 55 ml/hr x 24hr goal rate as tolerated 2) If pt remains NPO >3 days consider TPN to meet at least 75% of estimated needs 3) Advance pt diet when medically feasible to a Cardiac/CCHO 60g diet 4) Continue current plan of care Expected Outcomes/Goals: 1) Pt to receive nutrition support within 7 days of NPO status 2) Pt diet to advance 3) F/U in 2-3 days Muscle mass (Non-Severe): Mild Depletion (Moderate) ELVIRA SIMS MD May 27, 2024 12:05
[2024-05-27 12:13] LABS: INR 1.78 (0.9-1.15); Partial Thromboplastin Time 57.2 SEC (24.5-34.5); Prothrombin Time 18.1 sec (9.3-11.8)
[2024-05-27] MEDS: HEPARIN DRIP/D5W 100UNITS/ML 250 ML IV SCH ×2 (12:57→21:00)
[2024-05-27 13:10] LABS: Protein, Urine 36.7 mg/dL (1-14)
[2024-05-27 13:13] LABS: Creatinine, Urine 23.06 mg/dL (30.0-125.0); Creatinine, Urine 23.21 mg/dL (30.0-125.0); Urine Protein/Creatinine Ratio 1.59
[2024-05-27 13:42] LABS: Chloride 102 mmol/L (98-107); Potassium 4.2 mmol/L (3.5-5.1); Sodium 142 mmol/L (136-145)
[2024-05-27 13:43] LABS: Anion Gap 12 (5-15); Carbon Dioxide 28 mmol/L (20-31)
[2024-05-27 13:48] LABS: BUN/Creatinine Ratio 14.9 (10.0-20.0)
[2024-05-27 13:56] LABS: Calcium 8.3 mg/dL (8.7-10.4); Glucose 133 mg/dL (74-106)
[2024-05-27 13:59] LABS: Blood Urea Nitrogen 83 mg/dL (9-23)
[2024-05-27 14:06] LABS: Antimyeloperoxidase (MPO) Ab <0.2 units (0.0-0.9); Antiproteinase 3 (PR-3) Ab 0.3 units (0.0-0.9)
--- NOTE | 2024-05-27 14:42 | DVHPN2 ---
Progress Note Date Seen: May 27, 2024 Medical Necessity Reason Pt with a Central, PICC or Fol: Yes The following are medically ne: Central Line, Mendoza Catheter Reason for mendoza catheter: Strict I&O Subjective Patient reports: No new complaints Review of Systems: HEENT:Normal, CVS:Normal, RESPIRATORY:Normal, GI:Normal, :Normal, MSK:Normal, NEURO:Normal Objective vital signs Vital Sign Date Time Temp Pulse Resp B/P (MAP) Pulse Ox O2 Delivery O2 Flow Rate FiO2 05/27/24 13:22 103 24 93/56 (68) 98 35 05/27/24 11:30 99.0 210.2 05/27/24 06:00 Mechanical Ventilator+ Total Intake and Output 05/26/24 05/26/24 05/27/24 15:00 23:00 07:00 Intake Total 738.60 ml 709.28 ml 453.05 ml Output Total 850 ml 2725 ml 2500 ml Balance -111.40 ml -2015.72 ml -2046.95 ml medications Current Medications Medications Dose Ordered Sig/Estela Route Start Time Stop Time Status Last Admin Dose Admin Morphine Sulfate 2 mg Q4HPRN PRN IV 05/19/24 17:00 05/22/24 04:15 2 MG Nitroglycerin 0.4 mg Q5MINP PRN SL 05/19/24 17:00 Albuterol 2.5 mg Q4HPRN PRN NEB 05/19/24 17:15 Ipratropium [place] 0.5 mg Q4HPRN PRN NEB 05/19/24 17:15 Vasopressin 20 units/Sodium Chloride 100 ml @ 9 mls/hr Q11H7M IV 05/22/24 19:45 05/27/24 07:42 9 MLS/HR Vancomycin HCl 0 ml @ 0 mls/hr UD IV 05/22/24 20:15 Propofol 100 ml @ 2.538 mls/ hr Q24H IV 05/22/24 21:30 Midazolam HCl 50 ml @ 1 mls/hr Q24H IV 05/22/24 21:30 05/27/24 07:40 6 MLS/HR Fentanyl Citrate 250 ml @ 2.5 mls/hr Q24H IV 05/22/24 21:30 05/26/24 21:57 10 MLS/HR Meropenem 50 ml @ 17 mls/hr Q12H IV 05/23/24 11:00 05/27/24 10:54 17 MLS/HR Dextrose 50 ml UD PRN IV 05/23/24 05:00 Cancel Insulin Glargine 20 units DAILY@1000 SC 05/23/24 10:00 05/27/24 10:58 20 UNITS Pantoprazole Sodium 40 mg DAILY IV 05/23/24 10:00 05/27/24 10:53 40 MG Dextrose 50 ml UD PRN IV 05/23/24 11:00 Cancel Norepinephrine Bitartrate 16 mg/ Sodium Chloride 250 ml @ 1.875 mls/ hr Q24H IV 05/23/24 14:00 05/27/24 08:59 24.375 MLS/HR Phenylephrine HCl 40 mg/Sodium Chloride 250 ml @ 15 mls/hr [id number] IV 05/23/24 14:00 05/25/24 17:07 52.5 MLS/HR Diagnostic Test (Pha) 1 strip Q6HR 05/23/24 18:00 05/27/24 12:30 1 STRIP Insulin Human Regular Q6HR SC 05/23/24 18:00 05/27/24 06:09 2 UNITS Dextrose 50 ml UD PRN IV 05/23/24 16:15 Amiodarone HCl 250 ml @ 16.667 mls/ hr Q15H IV 05/25/24 05:30 05/27/24 02:11 16.667 MLS/HR Enteral Nutritional Formula 1,000 ml 55ML/HR GT 05/26/24 14:00 Heparin Sodium/ Dextrose 250 ml @ 18 mls/hr [id number] IV 05/27/24 08:30 05/27/24 12:57 18 MLS/HR Furosemide 100 mg/ Sodium Chloride 110 ml @ 5.5 mls/hr Q20H IV 05/27/24 12:00 05/27/24 12:00 5.5 MLS/HR Octreotide Acetate 100 mcg TID SUBCUT 05/27/24 14:00 Examination: GENERAL:Normal, HEENT:Normal, NECK:Normal, LUNGS:Normal, LUNGS:Abnormal (intubated), CVS:Normal, ABDOMEN:Normal, MSK:Normal, SKIN:Normal, NEURO:Normal, NEURO:Abnormal (sedated), :Normal laboratory and microbiology Laboratory Tests 05/27/24 13:14 05/27/24 03:29 Test 05/27/24 13:14 Range/Units Serum Glucose 133 H 74-106 mg/dL Microbiology Date/Time Source Procedure Growth Status 05/24/24 11:00 Nose MRSA Screen - Final Complete 05/22/24 20:03 Blood Blood Culture - Preliminary NO GROWTH AFTER 72 HOURS OF INCUBATION. Resulted 05/19/24 18:00 Voided Urine Urine Culture - Final Complete Problem List/Assessment/Plan Problem List/Assessment/Plan Problem List/Assessment/Plan Neurology : - Patient is sedated Cardiovascular : # cardiac arrest S/P CPR # AFib with RVR: on amiodarone iv, iv heparin #Stable angina -s/p LHC # dyslipidemia - Respiratory : # Acute hypoxic respiratory failure due to possible pneumonia # septic shock due to pneumonia # possible Gm +/- bacterial Pneumonia # Emphysema with tobacco dependence - now on mechanical ventilation ( FiO2 70%, PEEP: 8, F: 30, Vt: 650) - continue empiric antibiotic, meropenem and vancomycin - continue breathing treatment Genitourinary: # Acute kidney injury secondary to hemodynamically mediated - avoid nephrotoxic agents - lasix drip Gastrointestinal : # history of constipation # acute transaminitis secondary to shock liver - monitor liver function Infectious Disease : # septic shock due to pneumonia - continue antibiotic, meropenem and vancomycin, add diflucan Endocrine : # Type 2 diabetes mellitus - hemoglobin A1c on 05/19/2024: 6.8 - insulin SS, lantus - monitor blood glucose Skin : # basal cell skin carcinoma Hematology : # leukocytosis due to pneumonia - monitor morning labs # possible PVD - ordered lower extremity arterial Doppler # rule out DVT - lower extremity Venous Doppler ordered Nutrition : Prophylaxis for PUD : Protonix IV 40 mg daily Prophylaxis for DVT: Waiting for CT head to start blood thinner Drips Fentanyl 50 Versed 3 NE 30 Vasopressin 0.03 Neosyn: 108 Invasive access Mendoza catheter 05/22/24 Endotracheal tube 05/22/24 Rt Femoral central line 05/22/24 Goal of care discussed with daughter: Full code for now Critical Care time spent 82 minutes including patient care, chart review and updating family, excluding procedure. Case discussed with Dr. Fontenot Plan discussed with: Daughter My Orders My Orders Orders - ISACC FONTENOT MD Procedure Category Date Status Time Fluconazole Ivpb PHA 05/28/24 Verified Diflucan 10:00 Fluconazole Ivpb PHA 05/27/24 Verified Diflucan 14:30 Nutritional PHA 05/27/24 Verified Supplements (Nepro 14:30 Complete Blood Count LAB 05/28/24 Verified 06:00 Dietary Evaluation Review Comments: 1) If GI is accessible, pt is stable, consider Glucerna 1.2 @ 55 ml/hr x 24hr goal rate as tolerated 2) If pt remains NPO >3 days consider TPN to meet at least 75% of estimated needs 3) Advance pt diet when medically feasible to a Cardiac/CCHO 60g diet 4) Continue current plan of care Expected Outcomes/Goals: 1) Pt to receive nutrition support within 7 days of NPO status 2) Pt diet to advance 3) F/U in 2-3 days Muscle mass (Non-Severe): Mild Depletion (Moderate) Critical Care Time (mins): 82 (critical care time including dw familyl was 82 mins) Date of Service: May 27, 2024 Billing Provider: ISACC FONTENOT MD Common Visit Codes: [id number] CARE 30-74 MIN, [id number] CARE-EACH +30MIN ISACC FONTENOT MD May 27, 2024 14:42
[2024-05-27 16:06] LABS: Cytoplasmic (C-ANCA) <1:20 titer (Neg:<1:20); Perinuclear (P-ANCA) <1:20 titer (Neg:<1:20)
[2024-05-27] MEDS: FLUCONAZOLE 200MG/100ML 100 ML IV ONE (16:07)
[2024-05-27] MEDS: OCTREOTIDE ACETATE 100 MCG/ML VL SUBCUT SCH (16:07)
[2024-05-27 16:45] LABS: Chloride 100 mmol/L (98-107); Potassium 4.1 mmol/L (3.5-5.1); Sodium 142 mmol/L (136-145)
[2024-05-27 16:46] LABS: Anion Gap 10 (5-15)
[2024-05-27 16:51] LABS: BUN/Creatinine Ratio 16.5 (10.0-20.0)
[2024-05-27 16:57] LABS: Carbon Dioxide 32 mmol/L (20-31); Glucose 152 mg/dL (74-106)
[2024-05-27 16:58] LABS: Blood Urea Nitrogen 92 mg/dL (9-23); Calcium 8.5 mg/dL (8.7-10.4)
[2024-05-27] MEDS: Nepro With Carb Steady 1 Liter Bottle GT SCH (18:01)
[2024-05-27 20:04] LABS: INR 1.76 (0.9-1.15); Prothrombin Time 17.9 sec (9.3-11.8)
[2024-05-27 20:09] LABS: Partial Thromboplastin Time 88.3 SEC (24.5-34.5)
[2024-05-27 22:33] LABS: Chloride 101 mmol/L (98-107); Sodium 142 mmol/L (136-145)
[2024-05-27 22:34] LABS: Anion Gap 10 (5-15)
[2024-05-27 22:35] LABS: Calcium 8.9 mg/dL (8.7-10.4)
[2024-05-27 22:39] LABS: BUN/Creatinine Ratio 17.2 (10.0-20.0)
[2024-05-27 22:40] LABS: Carbon Dioxide 31 mmol/L (20-31); Glucose 134 mg/dL (74-106); Magnesium 2.4 mg/dL (1.6-2.6)
[2024-05-27 22:42] LABS: Blood Urea Nitrogen 94 mg/dL (9-23)
[2024-05-28] VITALS (103 sets, daily range): BP systolic 79–116; BP diastolic 46–70; PULSE 78–107; RESP 14–31; TEMP 98.2–99.9; O2SAT 93–100
[2024-05-28 02:44] LABS: INR 1.81 (0.9-1.15); Prothrombin Time 18.4 sec (9.3-11.8)
[2024-05-28 03:11] LABS: Partial Thromboplastin Time 82.1 SEC (24.5-34.5)
--- NOTE | 2024-05-28 04:03 | DVH ---
CHEST RADIOGRAPH Indication: resp failure Technique: Single frontal view of the chest was obtained Comparison: XY CHEST PORTABLE on DOS: 05/27/24, XY CHEST PORTABLE on DOS: 05/26/24, XY CHEST XRAY 1 V IEW on DOS: 05/25/24, XY CHEST XRAY 1 VIEW on DOS: 05/24/24, XY CHEST PORTABLE on DOS: 05/23/24, XY C HEST PORTABLE on DOS: 05/27/24 FINDINGS: There is cardiomegaly with small to moderate bilateral pleural effusions and mild pulmonary vascular congestion. Endotracheal tube and enteric tube appear unchanged. IMPRESSION: No interval change.
[2024-05-28] MEDS: HEPARIN DRIP/D5W 100UNITS/ML 250 ML IV SCH (04:05)
[2024-05-28 04:26] LABS: Hemoglobin 11.6 g/dL (13.5-17.5); Platelet Count (auto) 56 10^3/uL (140-450); Red Blood Cells 4.08 10^6/uL (4.5-5.90)
[2024-05-28 04:29] LABS: Hematocrit 34.4 % (41.0-53.0); Mean Corpuscular Hemoglobin 28.3 pg (28.0-32.0); Mean Corpuscular Hgb Conc. 33.6 g/dL (32.0-36.0); Mean Corpuscular Volume 84.4 fL (80.0-100.0); Red Cell Distribution Width 15.5 % (11.8-14.3); White Blood Cell 20.7 10^3/uL (4.4-10.8)
[2024-05-28 04:42] LABS: Anion Gap 12 (5-15); BUN/Creatinine Ratio 17.7 (10.0-20.0); Carbon Dioxide 31 mmol/L (20-31); Chloride 100 mmol/L (98-107); Sodium 143 mmol/L (136-145)
[2024-05-28 04:44] LABS: Basophils % (manual) 0 (0.0-2.0); Eosinophils % (manual) 0 (0-7); Metamyelocytes % 0; Myelocytes % 0; Promyelocytes % 0; Reactive Lymphocytes 0
[2024-05-28 04:48] LABS: Alanine Aminotransferase 552 U/L (7-40); Albumin 2.6 g/dL (3.2-4.8); Alkaline Phosphatase 195 U/L (46-116); Aspartate Aminotransferase 103 U/L (13-40); Blood Urea Nitrogen 97 mg/dL (9-23); Calcium 8.5 mg/dL (8.7-10.4); Glucose 136 mg/dL (74-106); Total Protein 4.9 g/dL (5.7-8.2)
[2024-05-28 08:06] LABS: Albumin 2.2 g/dL (2.9-4.4); Alpha-1-Globulin 0.4 g/dL (0.0-0.4); Alpha-2-Globulin 0.7 g/dL (0.4-1.0); Gamma Globulin 0.6 g/dL (0.4-1.8); Globulin Total 2.2 g/dL (2.2-3.9); Protein Total Serum 4.4 g/dL (6.0-8.5)
[2024-05-28 08:51] LABS: Band Neutrophils % (manual) 3; Blast Cells 2; Lymphocytes % (manual) 15 (10.0-50.0); Monocytes % (manual) 10 (0-12)
[2024-05-28 08:52] LABS: Platelet Estimate Decreased
[2024-05-28] MEDS: FLUCONAZOLE 200MG/100ML 100 ML IV SCH (09:20)
--- NOTE | 2024-05-28 09:58 | DVHPN2 ---
Progress Note Date Seen: May 28, 2024 Medical Necessity Reason Pt with a Central, PICC or Fol: Yes The following are medically ne: Central Line, Mendoza Catheter Reason for mendoza catheter: Strict I&O Subjective Review of Systems: RESPIRATORY:Abnormal Other Systems: Patient seen and examined by myself on follow-up today, patient remained intubated on ventilator Objective vital signs Vital Sign Date Time Temp Pulse Resp B/P (MAP) Pulse Ox O2 Delivery O2 Flow Rate FiO2 05/28/24 09:40 82 24 90/55 (67) 95 35 05/28/24 07:00 98.4 209.1 05/28/24 06:00 Mechanical Ventilator+ Total Intake and Output 05/27/24 05/27/24 05/28/24 15:00 23:00 07:00 Intake Total 758.155 ml 763.253 ml 766.37 ml Output Total 2200 ml 1800 ml Balance 758.155 ml -1436.747 ml -1033.63 ml medications Current Medications Medications Dose Ordered Sig/Estela Route Start Time Stop Time Status Last Admin Dose Admin Morphine Sulfate 2 mg Q4HPRN PRN IV 05/19/24 17:00 05/22/24 04:15 2 MG Nitroglycerin 0.4 mg Q5MINP PRN SL 05/19/24 17:00 Albuterol 2.5 mg Q4HPRN PRN NEB 05/19/24 17:15 Ipratropium [place] 0.5 mg Q4HPRN PRN NEB 05/19/24 17:15 Vasopressin 20 units/Sodium Chloride 100 ml @ 9 mls/hr Q11H7M IV 05/22/24 19:45 05/28/24 06:18 9 MLS/HR Vancomycin HCl 0 ml @ 0 mls/hr UD IV 05/22/24 20:15 Propofol 100 ml @ 2.538 mls/ hr Q24H IV 05/22/24 21:30 Midazolam HCl 50 ml @ 1 mls/hr Q24H IV 05/22/24 21:30 05/28/24 09:12 4 MLS/HR Fentanyl Citrate 250 ml @ 2.5 mls/hr Q24H IV 05/22/24 21:30 05/27/24 18:15 12.5 MLS/HR Meropenem 50 ml @ 17 mls/hr Q12H IV 05/23/24 11:00 05/27/24 22:57 17 MLS/HR Dextrose 50 ml UD PRN IV 05/23/24 05:00 Cancel Insulin Glargine 20 units DAILY@1000 SC 05/23/24 10:00 05/28/24 09:34 20 UNITS Pantoprazole Sodium 40 mg DAILY IV 05/23/24 10:00 05/28/24 09:20 40 MG Dextrose 50 ml UD PRN IV 05/23/24 11:00 Cancel Norepinephrine Bitartrate 16 mg/ Sodium Chloride 250 ml @ 1.875 mls/ hr Q24H IV 05/23/24 14:00 05/28/24 05:17 26.25 MLS/HR Phenylephrine HCl 40 mg/Sodium Chloride 250 ml @ 15 mls/hr [id number] IV 05/23/24 14:00 05/25/24 17:07 52.5 MLS/HR Diagnostic Test (Pha) 1 strip Q6HR 05/23/24 18:00 05/28/24 06:21 1 STRIP Insulin Human Regular Q6HR SC 05/23/24 18:00 05/28/24 06:18 2 UNITS Dextrose 50 ml UD PRN IV 05/23/24 16:15 Amiodarone HCl 250 ml @ 16.667 mls/ hr Q15H IV 05/25/24 05:30 05/28/24 08:59 16.667 MLS/HR Enteral Nutritional Formula 1,000 ml 55ML/HR GT 05/26/24 14:00 Furosemide 100 mg/ Sodium Chloride 110 ml @ 5.5 mls/hr Q20H IV 05/27/24 12:00 05/27/24 18:27 5.5 MLS/HR Octreotide Acetate 100 mcg TID SUBCUT 05/27/24 14:00 05/28/24 06:27 100 MCG Fluconazole 100 ml @ 100 mls/hr DAILY IV 05/28/24 10:00 05/28/24 09:20 100 MLS/HR Enteral Nutritional Formula 1,000 ml 20ML/HR GT 05/27/24 14:30 05/27/24 18:01 1,000 ML Heparin Sodium/ Dextrose 250 ml @ 16 mls/hr [id number] IV 05/28/24 03:30 05/28/24 04:05 14 MLS/HR Examination: LUNGS:Normal, CVS:Normal, MSK:Normal laboratory and microbiology Laboratory Tests 05/28/24 03:53 Test 05/28/24 03:53 Range/Units Serum Glucose 136 H 74-106 mg/dL Microbiology Date/Time Source Procedure Growth Status 05/24/24 11:00 Nose MRSA Screen - Final Complete 05/22/24 20:03 Blood Blood Culture - Final NO GROWTH AFTER 5 DAYS OF INCUBATION. Complete 05/19/24 18:00 Voided Urine Urine Culture - Final Complete Problem List/Assessment/Plan Problem List/Assessment/Plan Acute kidney injury hemodynamically mediated ATN, FeNa > 2% Acute respiratory failure , intubated on ventilator Diastolic heart failure Shock with multiorgan dysfunction Atrial fibrillation with rapid ventricular response Possible pericarditis seen on echo Diabetes mellitus type 2 Pneumonia liver cirrhosis Recommendations Kidney function stabilized no indication for acute hemodialysis Increased urine output Check daily for need for hemodialysis, discussed with the sister at the bedside Continue furosemide 5 milligram/hour IV pressors for blood pressure support Strict I&Os Cardiology consult We will continue to follow up Plan discussed with: Daughter My Orders My Orders Orders - ELVIRA SIMS MD Procedure Category Date Status Time Sodium Chl 0.9% PHA 05/27/24 In Process (So... W/Furosemide 12:00 Octreotide Acetate PHA 05/27/24 In Process (Sandostatin) 14:00 Dietary Evaluation Review Comments: 1) If GI is accessible, pt is stable, consider Glucerna 1.2 @ 55 ml/hr x 24hr goal rate as tolerated 2) If pt remains NPO >3 days consider TPN to meet at least 75% of estimated needs 3) Advance pt diet when medically feasible to a Cardiac/CCHO 60g diet 4) Continue current plan of care Expected Outcomes/Goals: 1) Pt to receive nutrition support within 7 days of NPO status 2) Pt diet to advance 3) F/U in 2-3 days Muscle mass (Non-Severe): Mild Depletion (Moderate) ELVIRA SIMS MD May 28, 2024 09:58
--- NOTE | 2024-05-28 12:26 | DVHPN2 ---
Consult Progress Note Date Seen: May 28, 2024 Subjective Other Systems: No overnight cardiac events reported Objective vital signs Vital Sign Date Time Temp Pulse Resp B/P (MAP) Pulse Ox O2 Delivery O2 Flow Rate FiO2 05/28/24 11:15 98.8 82 24 100/62 (75) 97 209.8 05/28/24 11:10 35 05/28/24 10:00 Mechanical Ventilator+ Total Intake and Output 05/27/24 05/27/24 05/28/24 15:00 23:00 07:00 Intake Total 758.155 ml 763.253 ml 854.28 ml Output Total 2200 ml 1800 ml Balance 758.155 ml -1436.747 ml -945.72 ml medications Current Medications Medications Dose Ordered Sig/Estela Route Start Time Stop Time Status Last Admin Dose Admin Morphine Sulfate 2 mg Q4HPRN PRN IV 05/19/24 17:00 05/22/24 04:15 2 MG Nitroglycerin 0.4 mg Q5MINP PRN SL 05/19/24 17:00 Albuterol 2.5 mg Q4HPRN PRN NEB 05/19/24 17:15 Ipratropium [place] 0.5 mg Q4HPRN PRN NEB 05/19/24 17:15 Vasopressin 20 units/Sodium Chloride 100 ml @ 9 mls/hr Q11H7M IV 05/22/24 19:45 05/28/24 06:18 9 MLS/HR Vancomycin HCl 0 ml @ 0 mls/hr UD IV 05/22/24 20:15 Propofol 100 ml @ 2.538 mls/ hr Q24H IV 05/22/24 21:30 Midazolam HCl 50 ml @ 1 mls/hr Q24H IV 05/22/24 21:30 05/28/24 09:12 4 MLS/HR Fentanyl Citrate 250 ml @ 2.5 mls/hr Q24H IV 05/22/24 21:30 05/27/24 18:15 12.5 MLS/HR Meropenem 50 ml @ 17 mls/hr Q12H IV 05/23/24 11:00 05/27/24 22:57 17 MLS/HR Dextrose 50 ml UD PRN IV 05/23/24 05:00 Cancel Insulin Glargine 20 units DAILY@1000 SC 05/23/24 10:00 12/17/24 09:34 20 UNITS Pantoprazole Sodium 40 mg DAILY IV 05/23/24 10:00 05/28/24 09:20 40 MG Dextrose 50 ml UD PRN IV 05/23/24 11:00 Cancel Norepinephrine Bitartrate 16 mg/ Sodium Chloride 250 ml @ 1.875 mls/ hr Q24H IV 05/23/24 14:00 05/28/24 05:17 26.25 MLS/HR Phenylephrine HCl 40 mg/Sodium Chloride 250 ml @ 15 mls/hr [id number] IV 05/23/24 14:00 05/25/24 17:07 52.5 MLS/HR Diagnostic Test (Pha) 1 strip Q6HR 05/23/24 18:00 05/28/24 06:21 1 STRIP Insulin Human Regular Q6HR SC 05/23/24 18:00 05/28/24 06:18 2 UNITS Dextrose 50 ml UD PRN IV 05/23/24 16:15 Amiodarone HCl 250 ml @ 16.667 mls/ hr Q15H IV 05/25/24 05:30 05/28/24 08:59 16.667 MLS/HR Enteral Nutritional Formula 1,000 ml 55ML/HR GT 05/26/24 14:00 Furosemide 100 mg/ Sodium Chloride 110 ml @ 5.5 mls/hr Q20H IV 05/27/24 12:00 05/27/24 18:27 5.5 MLS/HR Octreotide Acetate 100 mcg TID SUBCUT 05/27/24 14:00 05/28/24 06:27 100 MCG Fluconazole 100 ml @ 100 mls/hr DAILY IV 05/28/24 10:00 05/28/24 09:20 100 MLS/HR Enteral Nutritional Formula 1,000 ml 20ML/HR GT 05/27/24 14:30 05/27/24 18:01 1,000 ML Heparin Sodium/ Dextrose 250 ml @ 16 mls/hr [id number] IV 05/28/24 03:30 05/28/24 04:05 14 MLS/HR Examination: LUNGS:Abnormal (Mechanically ventilated 35% FiO2 PEEP 5.0), CVS:Abnormal (Transitioned into a NSR. On dual-vasopressor, SBP 100s mmHg), NEURO:Normal (Chemically sedated) laboratory and microbiology Laboratory Tests 05/28/24 03:53 Test 05/28/24 03:53 Range/Units Serum Glucose 136 H 74-106 mg/dL Problem List/Assessment/Plan Problem List/Assessment/Plan Sepsis with PNA Paroxysmal atrial fibrillation with episode of RVR Cardiopulmonary arrest s/p ROSC, rule out PE Right lower extremity DVT NSTEMI Type II likely secondary to above Coronary artery disease ruled out, s/p LHC Circumferential pericardial effusion, small Gov-byshrat-ujlvenzzc diabetes mellitus, HgbA1C 6.8% Basal cell skin cancer Emphysema with tobacco dependence Smoking history times 79.5 years Shocked liver Acute kidney injury Thrombocytopenia Plan/Recommendation (Dr. Hyde) Case discussed with Dr. Hyde. The patient who presented with c/o fatigue and chest pain underwent a coronary angiogram deemed to be negative for obstructive coronary artery disease. During admission the patient experienced severe respiratory distress and subsequent cardiopulmonary arrest with ROSC status post intubation for airway protection. Repeat transthoracic echocardiogram revealed no significant changes from previous echocardiogram and a normal LVEF of 55-60%. Presents with RLE DVT and suspected PE for which patient was anticoagulated initially with Lovenox then with heparin and now with thrombocytopenia 50s. Discontinue AC therapy at this time. Obtain hematology consultation. Continue vasopressors for hemodynamic support and titrate down as tolerated. Continue amiodarone drip per pharmacy protocol and transition to oral route with Flecainide and Cardizem when appropriate. Per daughter at bedside, father has been compliant with medical therapy at home including Pradaxa therapy. We recommend holding off from DOAC/NOAC therapy and initiation of warfarin therapy. Kindly call in need of further follow-up. Thank you for allowing us to care for this patient. Critical care time spent: 30 minutes. This medical document was created using an electronic medical record system with voice recognition software and computerized dictation system. Although this document has been carefully reviewed, there might still be some phonetic and typographical errors. Occasional wrong-word or ``sound-alike substitutions may have occurred due to the inherent limitations of voice recognition software. These areas are purely typographical due to imperfections of the software programs and do not reflect any compromise in the patient's medical care. Please read the chart carefully and recognize, using context, where these substitutions have occurred. Plan discussed with: Daughter, Other (Sister) Dietary Evaluation Review Comments: 1) If GI is accessible, pt is stable, consider Glucerna 1.2 @ 55 ml/hr x 24hr goal rate as tolerated 2) If pt remains NPO >3 days consider TPN to meet at least 75% of estimated needs 3) Advance pt diet when medically feasible to a Cardiac/CCHO 60g diet 4) Continue current plan of care Expected Outcomes/Goals: 1) Pt to receive nutrition support within 7 days of NPO status 2) Pt diet to advance 3) F/U in 2-3 days Muscle mass (Non-Severe): Mild Depletion (Moderate) Date of Service: May 28, 2024 Billing Provider: LUI HYDE MD Cardiology Common Codes: [id number] CARE 30-74 MIN MARIBELL BRICEÑO [facility] May 28, 2024 12:26
[2024-05-28] MEDS: PHENYLEPHRINE INJ 80 MG in SODIUM CHL 0.9% 242 ML IV SCH (12:30)
[2024-05-28 12:38] LABS: Chloride 102 mmol/L (98-107); Sodium 144 mmol/L (136-145)
[2024-05-28 12:47] LABS: BUN/Creatinine Ratio 19.3 (10.0-20.0)
[2024-05-28 12:48] LABS: Calcium 8.4 mg/dL (8.7-10.4); Glucose 125 mg/dL (74-106)
[2024-05-28 12:50] LABS: Blood Urea Nitrogen 103 mg/dL (9-23)
[2024-05-28 12:59] LABS: INR 1.77 (0.9-1.15)
[2024-05-28 13:18] LABS: Anion Gap 9 (5-15); Carbon Dioxide 33 mmol/L (20-31)
--- NOTE | 2024-05-28 13:35 | DVHPN2 ---
Progress Note Date Seen: May 28, 2024 Medical Necessity Reason Pt with a Central, PICC or Fol: Yes The following are medically ne: Central Line, Mendoza Catheter Reason for mendoza catheter: Strict I&O Subjective Patient reports: No new complaints Review of Systems: HEENT:Normal, CVS:Normal, RESPIRATORY:Normal, GI:Normal, :Normal, MSK:Normal, NEURO:Normal Objective vital signs Vital Sign Date Time Temp Pulse Resp B/P (MAP) Pulse Ox O2 Delivery O2 Flow Rate FiO2 05/28/24 12:39 116/68 05/28/24 11:15 98.8 82 24 97 209.8 05/28/24 11:10 35 05/28/24 10:00 Mechanical Ventilator+ Total Intake and Output 05/27/24 05/27/24 05/28/24 15:00 23:00 07:00 Intake Total 758.155 ml 763.253 ml 854.28 ml Output Total 2200 ml 1800 ml Balance 758.155 ml -1436.747 ml -945.72 ml medications Current Medications Medications Dose Ordered Sig/Estela Route Start Time Stop Time Status Last Admin Dose Admin Nitroglycerin 0.4 mg Q5MINP PRN SL 05/19/24 17:00 Albuterol 2.5 mg Q4HPRN PRN NEB 05/19/24 17:15 Ipratropium [place] 0.5 mg Q4HPRN PRN NEB 05/19/24 17:15 Vasopressin 20 units/Sodium Chloride 100 ml @ 9 mls/hr Q11H7M IV 05/22/24 19:45 05/28/24 06:18 9 MLS/HR Vancomycin HCl 0 ml @ 0 mls/hr UD IV 05/22/24 20:15 Propofol 100 ml @ 2.538 mls/ hr Q24H IV 05/22/24 21:30 Midazolam HCl 50 ml @ 1 mls/hr Q24H IV 05/22/24 21:30 05/28/24 09:12 4 MLS/HR Fentanyl Citrate 250 ml @ 2.5 mls/hr Q24H IV 05/22/24 21:30 05/27/24 18:15 12.5 MLS/HR Meropenem 50 ml @ 17 mls/hr Q12H IV 05/23/24 11:00 05/28/24 12:34 17 MLS/HR Dextrose 50 ml UD PRN IV 05/23/24 05:00 Cancel Insulin Glargine 20 units DAILY@1000 SC 05/23/24 10:00 05/28/24 09:34 20 UNITS Pantoprazole Sodium 40 mg DAILY IV 05/23/24 10:00 05/28/24 09:20 40 MG Dextrose 50 ml UD PRN IV 05/23/24 11:00 Cancel Diagnostic Test (Pha) 1 strip Q6HR 05/23/24 18:00 05/28/24 12:00 1 STRIP Insulin Human Regular Q6HR SC 05/23/24 18:00 05/28/24 06:18 2 UNITS Dextrose 50 ml UD PRN IV 05/23/24 16:15 Amiodarone HCl 250 ml @ 16.667 mls/ hr Q15H IV 05/25/24 05:30 05/28/24 08:59 16.667 MLS/HR Enteral Nutritional Formula 1,000 ml 55ML/HR GT 05/26/24 14:00 Furosemide 100 mg/ Sodium Chloride 110 ml @ 5.5 mls/hr Q20H IV 05/27/24 12:00 05/28/24 12:39 5.5 MLS/HR Octreotide Acetate 100 mcg TID SUBCUT 05/27/24 14:00 05/28/24 06:27 100 MCG Fluconazole 100 ml @ 100 mls/hr DAILY IV 05/28/24 10:00 05/28/24 09:20 100 MLS/HR Enteral Nutritional Formula 1,000 ml 20ML/HR GT 05/27/24 14:30 05/27/24 18:01 1,000 ML Phenylephrine HCl 80 mg/Sodium Chloride 250 ml @ 7.5 mls/hr Q24H IV 05/28/24 12:30 Norepinephrine Bitartrate 32 mg/ Sodium Chloride 250 ml @ 0.938 mls/ hr Q24H IV 05/28/24 12:30 Examination: GENERAL:Normal, HEENT:Normal, NECK:Normal, LUNGS:Normal, LUNGS:Abnormal (INTUBATED, DECREASED BILATERAL), CVS:Normal, ABDOMEN:Normal, MSK:Normal, SKIN:Normal, NEURO:Normal, :Normal laboratory and microbiology Laboratory Tests 05/28/24 12:13 05/28/24 03:53 Test 12/17/24 12:13 Range/Units Serum Glucose 125 H 74-106 mg/dL Microbiology Date/Time Source Procedure Growth Status 05/24/24 11:00 Nose MRSA Screen - Final Complete 05/22/24 20:03 Blood Blood Culture - Final NO GROWTH AFTER 5 DAYS OF INCUBATION. Complete 05/19/24 18:00 Voided Urine Urine Culture - Final Complete Problem List/Assessment/Plan Problem List/Assessment/Plan Problem List/Assessment/Plan Neurology : - Patient is sedated Cardiovascular : # cardiac arrest S/P CPR # AFib with RVR: on amiodarone iv, iv heparin #Stable angina -s/p LHC # dyslipidemia - Respiratory : # Acute hypoxic respiratory failure due to possible pneumonia # septic shock due to pneumonia # possible Gm +/- bacterial Pneumonia # Emphysema with tobacco dependence - now on mechanical ventilation ( FiO2 70%, PEEP: 8, F: 30, Vt: 650) - continue empiric antibiotic, meropenem and vancomycin - continue breathing treatment Genitourinary: # Acute kidney injury secondary to hemodynamically mediated - avoid nephrotoxic agents - lasix drip Gastrointestinal : # history of constipation # acute transaminitis secondary to shock liver - monitor liver function Infectious Disease : # septic shock due to pneumonia - continue antibiotic, meropenem and vancomycin, add diflucan Endocrine : # Type 2 diabetes mellitus - hemoglobin A1c on 05/19/2024: 6.8 - insulin SS, lantus - monitor blood glucose Skin : # basal cell skin carcinoma Hematology : # leukocytosis due to pneumonia - monitor morning labs # possible PVD - ordered lower extremity arterial Doppler # rule out DVT - lower extremity Venous Doppler ordered # thrombocytopenia: dc heparin Nutrition : Prophylaxis for PUD : Protonix IV 40 mg daily Prophylaxis for DVT: Waiting for CT head to start blood thinner Drips Fentanyl 50 Versed 3 NE 30 Vasopressin 0.03 Neosyn: 108 Invasive access Mendoza catheter 05/22/24 Endotracheal tube 05/22/24 Rt Femoral central line 05/22/24 Goal of care discussed with daughter: Full code for now Critical Care time spent 82 minutes including patient care, chart review and updating family, excluding procedure. long discussion with daughter Plan discussed with: Daughter My Orders My Orders Orders - ISACC FONTENOT MD Procedure Category Date Status Time Fluconazole PHA 05/28/24 In Process 200mg/100ml (Diflucan 10:00 Nutritional PHA 05/27/24 In Process Supplements (Nepro 14:30 Chest Portable XY 05/28/24 Resulted 06:00 Abg W/ Co-Ox RT 05/28/24 Logged 06:00 Thoracentesis US 05/28/24 Logged 13:22 Chest Ultrasound US 05/28/24 Logged 13:24 Complete Blood Count LAB 05/29/24 Verified 06:00 Comprehensive LAB 05/29/24 Verified Metabolic Panel 06:00 Chest Portable XY 05/29/24 Transmitted 06:00 Abg W/ Co-Ox RT 05/29/24 Transmitted 06:00 Dietary Evaluation Review Comments: 1) If GI is accessible, pt is stable, consider Glucerna 1.2 @ 55 ml/hr x 24hr goal rate as tolerated 2) If pt remains NPO >3 days consider TPN to meet at least 75% of estimated needs 3) Advance pt diet when medically feasible to a Cardiac/CCHO 60g diet 4) Continue current plan of care Expected Outcomes/Goals: 1) Pt to receive nutrition support within 7 days of NPO status 2) Pt diet to advance 3) F/U in 2-3 days Muscle mass (Non-Severe): Mild Depletion (Moderate) Date of Service: May 28, 2024 Billing Provider: ISACC FONTENOT MD Common Visit Codes: [id number] CARE 30-74 MIN, [id number] CARE-EACH +30MIN Date of Service: May 28, 2024 Billing Provider: ISACC FONTENOT MD Common Visit Codes: [id number] CARE 30-74 MIN, [id number] CARE-EACH +30MIN ISACC FONTENOT MD May 28, 2024 13:34
[2024-05-28 13:37] LABS: Partial Thromboplastin Time 74.9 SEC (24.5-34.5)
--- NOTE | 2024-05-28 13:50 | DVH ---
Exam: US CHEST ULTRASOUND Date: 05/28/2024 01:29 PM Clinical History: EVAL PLEURAL EFFUSION Comparison: None Technique: Targeted sonographic evaluation of the right and left kevin thorax was obtained utilizing grayscale an d color Doppler imaging. Findings: There are bilateral pleural effusions, ctmg-tmvukix-nozn-right. There are septation seen within the p leural effusions.. IMPRESSION: 1. Bilateral pleural effusions, [id number]-fnqszpy-[id number]-right. There are septations seen within the pleura l effusions. HS:Y
[2024-05-28] MEDS: NOREPINEPHRINE BITARTRATE 32 MG in SODIUM CHL 0.9% 218 ML IV SCH (15:42)
[2024-05-28 16:48] LABS: Chloride 102 mmol/L (98-107); Potassium 3.9 mmol/L (3.5-5.1); Sodium 144 mmol/L (136-145)
[2024-05-28 16:49] LABS: Anion Gap 9 (5-15)
[2024-05-28 16:54] LABS: BUN/Creatinine Ratio 19.5 (10.0-20.0)
[2024-05-28 17:13] LABS: Calcium 8.4 mg/dL (8.7-10.4); Carbon Dioxide 33 mmol/L (20-31); Glucose 114 mg/dL (74-106)
[2024-05-28 17:15] LABS: Blood Urea Nitrogen 104 mg/dL (9-23)
[2024-05-28 22:24] LABS: Chloride 103 mmol/L (98-107); Potassium 4.1 mmol/L (3.5-5.1); Sodium 144 mmol/L (136-145)
[2024-05-28 22:25] LABS: Anion Gap 10 (5-15)
[2024-05-28 22:30] LABS: BUN/Creatinine Ratio 20.1 (10.0-20.0)
[2024-05-28 22:31] LABS: Magnesium 2.2 mg/dL (1.6-2.6)
[2024-05-28 22:51] LABS: Calcium 8.3 mg/dL (8.7-10.4); Carbon Dioxide 31 mmol/L (20-31); Glucose 108 mg/dL (74-106)
[2024-05-28 22:55] LABS: Blood Urea Nitrogen 106 mg/dL (9-23)
[2024-05-29] VITALS (107 sets, daily range): BP systolic 81–115; BP diastolic 50–77; PULSE 83–118; RESP 12–29; TEMP 98.2–100.4; O2SAT 92–100
[2024-05-29 03:23] LABS: Platelet Count (auto) 63 10^3/uL (140-450)
[2024-05-29 03:25] LABS: Hematocrit 35.5 % (41.0-53.0); Mean Corpuscular Hemoglobin 28.9 pg (28.0-32.0); Mean Corpuscular Hgb Conc. 33.9 g/dL (32.0-36.0); Mean Corpuscular Volume 85.2 fL (80.0-100.0); Red Blood Cells 4.17 10^6/uL (4.5-5.90); Red Cell Distribution Width 16.7 % (11.8-14.3); White Blood Cell 19.9 10^3/uL (4.4-10.8)
[2024-05-29 03:28] LABS: Basophils % (manual) 0 (0.0-2.0); Blast Cells 0; Eosinophils % (manual) 0 (0-7); Metamyelocytes % 0; Promyelocytes % 0; Reactive Lymphocytes 0
[2024-05-29 03:37] LABS: INR 1.81 (0.9-1.15); Partial Thromboplastin Time 47.5 SEC (24.5-34.5); Prothrombin Time 18.4 sec (9.3-11.8)
[2024-05-29 03:42] LABS: Anion Gap 13 (5-15); BUN/Creatinine Ratio 23.1 (10.0-20.0); Carbon Dioxide 29 mmol/L (20-31); Chloride 103 mmol/L (98-107); Glucose 100 mg/dL (74-106); Sodium 145 mmol/L (136-145)
[2024-05-29 03:48] LABS: Alanine Aminotransferase 365 U/L (7-40); Albumin 2.4 g/dL (3.2-4.8); Alkaline Phosphatase 194 U/L (46-116); Aspartate Aminotransferase 101 U/L (13-40); Bilirubin, Total 7.4 mg/dL (0.2-1.0); Blood Urea Nitrogen 120 mg/dL (9-23); Calcium 8.3 mg/dL (8.7-10.4); Total Protein 4.7 g/dL (5.7-8.2)
--- NOTE | 2024-05-29 04:15 | DVH ---
CHEST RADIOGRAPH Indication: RESP FAILURE Technique: Single frontal view of the chest was obtained Comparison: XY CHEST PORTABLE on DOS: 05/28/24, XY CHEST PORTABLE on DOS: 05/27/24, XY CHEST PORTABLE on DOS: 05/26/24, XY CHEST XRAY 1 VIEW on DOS: 05/25/24, XY CHEST XRAY 1 VIEW on DOS: 05/24/24, XY C HEST PORTABLE on DOS: 05/28/24 FINDINGS: There is cardiomegaly with small to moderate bilateral pleural effusions and mild pulmonary vascular congestion. Endotracheal tube and enteric tube appear unchanged. IMPRESSION: No interval change.
[2024-05-29 06:45] LABS: Band Neutrophils % (manual) 1; Lymphocytes % (manual) 13 (10.0-50.0); Monocytes % (manual) 17 (0-12); Myelocytes % 1; Platelet Estimate Decreased
[2024-05-29 06:46] LABS: Anisocytosis Slight; Target Cell FEW
[2024-05-29] MEDS: VANCOMYCIN 500mg/100mL 100 ML IV ONE (10:39)
[2024-05-29] MEDS: ALBUMIN 25% 100 ML IV SCH (10:44)
--- NOTE | 2024-05-29 11:46 | DVHPN2 ---
Progress Note Date Seen: May 29, 2024 Medical Necessity Reason Pt with a Central, PICC or Fol: Yes The following are medically ne: Central Line, Mendoza Catheter Reason for mendoza catheter: Strict I&O Subjective Review of Systems: RESPIRATORY:Abnormal Other Systems: Patient seen and examined by myself on follow-up today Patient remained intubated on ventilator Objective vital signs Vital Sign Date Time Temp Pulse Resp B/P (MAP) Pulse Ox O2 Delivery O2 Flow Rate FiO2 05/29/24 10:18 100 24 105/70 (82) 98 35 05/29/24 06:45 100.2 212.4 05/29/24 06:00 Mechanical Ventilator+ Total Intake and Output 05/28/24 05/28/24 05/29/24 15:00 23:00 07:00 Intake Total 774.530 ml 729.374 ml 728.340 ml Output Total 1500 ml 1550 ml Balance 774.530 ml -770.626 ml -821.660 ml medications Current Medications Medications Dose Ordered Sig/Estela Route Start Time Stop Time Status Last Admin Dose Admin Nitroglycerin 0.4 mg Q5MINP PRN SL 05/19/24 17:00 Albuterol 2.5 mg Q4HPRN PRN NEB 05/19/24 17:15 Ipratropium [place] 0.5 mg Q4HPRN PRN NEB 05/19/24 17:15 Vasopressin 20 units/Sodium Chloride 100 ml @ 9 mls/hr Q11H7M IV 05/22/24 19:45 05/29/24 03:46 9 MLS/HR Vancomycin HCl 0 ml @ 0 mls/hr UD IV 05/22/24 20:15 Propofol 100 ml @ 2.538 mls/ hr Q24H IV 05/22/24 21:30 Midazolam HCl 50 ml @ 1 mls/hr Q24H IV 05/22/24 21:30 05/29/24 08:03 3 MLS/HR Fentanyl Citrate 250 ml @ 2.5 mls/hr Q24H IV 05/22/24 21:30 05/29/24 09:36 12.5 MLS/HR Meropenem 50 ml @ 17 mls/hr Q12H IV 05/23/24 11:00 05/28/24 22:07 17 MLS/HR Dextrose 50 ml UD PRN IV 05/23/24 05:00 Cancel Insulin Glargine 20 units DAILY@1000 SC 05/23/24 10:00 05/29/24 09:34 20 UNITS Pantoprazole Sodium 40 mg DAILY IV 05/23/24 10:00 05/29/24 08:40 40 MG Dextrose 50 ml UD PRN IV 05/23/24 11:00 Cancel Diagnostic Test (Pha) 1 strip Q6HR 05/23/24 18:00 05/29/24 05:47 1 STRIP Insulin Human Regular Q6HR SC 05/23/24 18:00 05/28/24 06:18 2 UNITS Dextrose 50 ml UD PRN IV 05/23/24 16:15 Amiodarone HCl 250 ml @ 16.667 mls/ hr Q15H IV 05/25/24 05:30 05/29/24 00:21 16.667 MLS/HR Enteral Nutritional Formula 1,000 ml 55ML/HR GT 05/26/24 14:00 Furosemide 100 mg/ Sodium Chloride 110 ml @ 5.5 mls/hr Q20H IV 05/27/24 12:00 05/29/24 08:03 5.5 MLS/HR Octreotide Acetate 100 mcg TID SUBCUT 05/27/24 14:00 05/29/24 06:00 100 MCG Fluconazole 100 ml @ 100 mls/hr DAILY IV 05/28/24 10:00 05/29/24 08:40 100 MLS/HR Enteral Nutritional Formula 1,000 ml 20ML/HR GT 05/27/24 14:30 05/27/24 18:01 1,000 ML Phenylephrine HCl 80 mg/Sodium Chloride 250 ml @ 7.5 mls/hr Q24H IV 05/28/24 12:30 05/29/24 06:47 7.5 MLS/HR Norepinephrine Bitartrate 32 mg/ Sodium Chloride 250 ml @ 0.938 mls/ hr Q24H IV 05/28/24 12:30 05/29/24 05:42 14.063 MLS/HR Albumin Human 100 ml @ 100 mls/hr Q8H IV 05/29/24 10:15 05/30/24 03:14 05/29/24 10:44 100 MLS/HR Examination: LUNGS:Normal, CVS:Normal, MSK:Normal laboratory and microbiology Laboratory Tests 05/29/24 02:55 Test 05/29/24 02:55 Range/Units Serum Glucose 100 74-106 mg/dL Microbiology Date/Time Source Procedure Growth Status 05/24/24 11:00 Nose MRSA Screen - Final Complete 05/22/24 20:03 Blood Blood Culture - Final NO GROWTH AFTER 5 DAYS OF INCUBATION. Complete 05/19/24 18:00 Voided Urine Urine Culture - Final Complete Problem List/Assessment/Plan Problem List/Assessment/Plan Acute kidney injury hemodynamically mediated ATN, FeNa > 2% Acute respiratory failure , intubated on ventilator Diastolic heart failure Shock with multiorgan dysfunction Atrial fibrillation with rapid ventricular response Possible pericarditis seen on echo Diabetes mellitus type 2 Pneumonia liver cirrhosis Recommendations Kidney function stabilized no indication for acute hemodialysis Increased urine output Check daily for need for hemodialysis, discussed with the daughter at the bedside Continue furosemide 5 milligram/hour IV pressors for blood pressure support Strict I&Os Cardiology consult We will continue to follow up Plan discussed with: Daughter, Other (Nurse) My Orders My Orders Orders - ELVIRA SIMS MD Procedure Category Date Status Time Albumin 25% (Albutein) PHA 05/29/24 In Process 10:15 Dietary Evaluation Review Comments: 1) If GI is accessible, pt is stable, consider Glucerna 1.2 @ 55 ml/hr x 24hr goal rate as tolerated 2) If pt remains NPO >3 days consider TPN to meet at least 75% of estimated needs 3) Advance pt diet when medically feasible to a Cardiac/CCHO 60g diet 4) Continue current plan of care Expected Outcomes/Goals: 1) Pt to receive nutrition support within 7 days of NPO status 2) Pt diet to advance 3) F/U in 2-3 days Muscle mass (Non-Severe): Mild Depletion (Moderate) ELVIRA SIMS MD May 29, 2024 11:46
--- NOTE | 2024-05-29 12:29 | DVHPN2 ---
Progress Note Date Seen: May 29, 2024 Medical Necessity Reason Pt with a Central, PICC or Fol: Yes The following are medically ne: Central Line, Mendoza Catheter Reason for mendoza catheter: Strict I&O Subjective Patient reports: No new complaints Review of Systems: HEENT:Normal, CVS:Normal, RESPIRATORY:Normal, GI:Normal, :Normal, MSK:Normal, NEURO:Normal Objective vital signs Vital Sign Date Time Temp Pulse Resp B/P (MAP) Pulse Ox O2 Delivery O2 Flow Rate FiO2 05/29/24 10:18 100 24 105/70 (82) 98 35 05/29/24 06:45 100.2 212.4 05/29/24 06:00 Mechanical Ventilator+ Total Intake and Output 05/28/24 05/28/24 05/29/24 15:00 23:00 07:00 Intake Total 774.530 ml 729.374 ml 728.340 ml Output Total 1500 ml 1550 ml Balance 774.530 ml -770.626 ml -821.660 ml medications Current Medications Medications Dose Ordered Sig/Estela Route Start Time Stop Time Status Last Admin Dose Admin Nitroglycerin 0.4 mg Q5MINP PRN SL 05/19/24 17:00 Albuterol 2.5 mg Q4HPRN PRN NEB 05/19/24 17:15 Ipratropium [place] 0.5 mg Q4HPRN PRN NEB 05/19/24 17:15 Vasopressin 20 units/Sodium Chloride 100 ml @ 9 mls/hr Q11H7M IV 05/22/24 19:45 05/29/24 03:46 9 MLS/HR Vancomycin HCl 0 ml @ 0 mls/hr UD IV 05/22/24 20:15 Propofol 100 ml @ 2.538 mls/ hr Q24H IV 05/22/24 21:30 Midazolam HCl 50 ml @ 1 mls/hr Q24H IV 05/22/24 21:30 05/29/24 08:03 3 MLS/HR Fentanyl Citrate 250 ml @ 2.5 mls/hr Q24H IV 05/22/24 21:30 05/29/24 09:36 12.5 MLS/HR Meropenem 50 ml @ 17 mls/hr Q12H IV 05/23/24 11:00 05/28/24 22:07 17 MLS/HR Dextrose 50 ml UD PRN IV 05/23/24 05:00 Cancel Insulin Glargine 20 units DAILY@1000 SC 05/23/24 10:00 05/29/24 09:34 20 UNITS Pantoprazole Sodium 40 mg DAILY IV 05/23/24 10:00 05/29/24 08:40 40 MG Dextrose 50 ml UD PRN IV 05/23/24 11:00 Cancel Diagnostic Test (Pha) 1 strip Q6HR 05/23/24 18:00 05/29/24 05:47 1 STRIP Insulin Human Regular Q6HR SC 05/23/24 18:00 05/28/24 06:18 2 UNITS Dextrose 50 ml UD PRN IV 05/23/24 16:15 Amiodarone HCl 250 ml @ 16.667 mls/ hr Q15H IV 05/25/24 05:30 05/29/24 00:21 16.667 MLS/HR Enteral Nutritional Formula 1,000 ml 55ML/HR GT 05/26/24 14:00 Furosemide 100 mg/ Sodium Chloride 110 ml @ 5.5 mls/hr Q20H IV 05/27/24 12:00 05/29/24 08:03 5.5 MLS/HR Octreotide Acetate 100 mcg TID SUBCUT 05/27/24 14:00 05/29/24 06:00 100 MCG Fluconazole 100 ml @ 100 mls/hr DAILY IV 05/28/24 10:00 05/29/24 08:40 100 MLS/HR Enteral Nutritional Formula 1,000 ml 20ML/HR GT 05/27/24 14:30 05/27/24 18:01 1,000 ML Phenylephrine HCl 80 mg/Sodium Chloride 250 ml @ 7.5 mls/hr Q24H IV 05/28/24 12:30 05/29/24 06:47 7.5 MLS/HR Norepinephrine Bitartrate 32 mg/ Sodium Chloride 250 ml @ 0.938 mls/ hr Q24H IV 05/28/24 12:30 05/29/24 05:42 14.063 MLS/HR Albumin Human 100 ml @ 100 mls/hr Q8H IV 05/29/24 10:15 05/30/24 03:14 05/29/24 10:44 100 MLS/HR Examination: GENERAL:Normal, HEENT:Normal, NECK:Normal, LUNGS:Normal, LUNGS:Abnormal (intubated), CVS:Normal, ABDOMEN:Normal, MSK:Normal, SKIN:Normal, NEURO:Normal, :Normal laboratory and microbiology Laboratory Tests 05/29/24 02:55 Test 05/29/24 02:55 Range/Units Serum Glucose 100 74-106 mg/dL Microbiology Date/Time Source Procedure Growth Status 05/24/24 11:00 Nose MRSA Screen - Final Complete 05/22/24 20:03 Blood Blood Culture - Final NO GROWTH AFTER 5 DAYS OF INCUBATION. Complete 05/19/24 18:00 Voided Urine Urine Culture - Final Complete Problem List/Assessment/Plan Problem List/Assessment/Plan Problem List/Assessment/Plan Neurology : - Patient is sedated Cardiovascular : # cardiac arrest S/P CPR # AFib with RVR: on amiodarone iv, dc iv heparin #Stable angina -s/p LHC # dyslipidemia - Respiratory : # Acute hypoxic respiratory failure due to possible pneumonia # septic shock due to pneumonia # possible Gm +/- bacterial Pneumonia # Emphysema with tobacco dependence - now on mechanical ventilation ( FiO2 70%, PEEP: 8, F: 30, Vt: 650) - continue empiric antibiotic, meropenem and vancomycin - continue breathing treatment Genitourinary: # Acute kidney injury secondary to hemodynamically mediated - avoid nephrotoxic agents - lasix drip Gastrointestinal : # history of constipation: lactulose # acute transaminitis secondary to shock liver - monitor liver function Infectious Disease : # septic shock due to pneumonia - continue antibiotic, meropenem and vancomycin, add diflucan Endocrine : # Type 2 diabetes mellitus - hemoglobin A1c on 05/19/2024: 6.8 - insulin SS, lantus - monitor blood glucose Skin : # basal cell skin carcinoma Hematology : # leukocytosis due to pneumonia - monitor morning labs # possible PVD - ordered lower extremity arterial Doppler # rule out DVT - lower extremity Venous Doppler ordered # thrombocytopenia: dc heparin Nutrition : Prophylaxis for PUD : Protonix IV 40 mg daily Prophylaxis for DVT: Waiting for CT head to start blood thinner Drips Fentanyl 50 Versed 3 NE 30 Vasopressin 0.03 Neosyn: 108 Invasive access Mendoza catheter 05/22/24 Endotracheal tube 05/22/24 Rt Femoral central line 05/22/24 Goal of care discussed with daughter: Full code for now Critical Care time spent 82 minutes including patient care, chart review and updating family, excluding procedures. long discussion with daughter Plan discussed with: Daughter My Orders My Orders Orders - ISACC FONTENOT MD Procedure Category Date Status Time Chest Ultrasound US 05/28/24 Resulted 13:24 Chest Portable XY 05/29/24 Resulted 06:00 Abg W/ Co-Ox RT 05/29/24 Logged 06:00 Thoracentesis US 05/29/24 Logged 08:00 * Radiologist Consult CONS 05/28/24 Transmitted 18:07 Respiratory Misc. RT 05/29/24 Transmitted Order 10:24 Dietary Evaluation Review Comments: 1) If GI is accessible, pt is stable, consider Glucerna 1.2 @ 55 ml/hr x 24hr goal rate as tolerated 2) If pt remains NPO >3 days consider TPN to meet at least 75% of estimated needs 3) Advance pt diet when medically feasible to a Cardiac/CCHO 60g diet 4) Continue current plan of care Expected Outcomes/Goals: 1) Pt to receive nutrition support within 7 days of NPO status 2) Pt diet to advance 3) F/U in 2-3 days Muscle mass (Non-Severe): Mild Depletion (Moderate) Date of Service: May 29, 2024 Billing Provider: ISACC FONTENOT MD Common Visit Codes: 27548-XPNGNDXT CARE 30-74 MIN, 69108-ODPXRCKB CARE-EACH +30MIN ISACC FONTENOT MD May 29, 2024 12:29
--- NOTE | 2024-05-29 13:31 | DVH ---
US THORACENTESI HISTORY: LEFT EFFUSION PROCEDURE: Informed consent was obtained. The patient was decubitus on the bed. A limited localizatio n ultrasound of the left thorax was obtained, and the optimal approach was marked on the skin. The ar ea was prepped with chlorhexidine which was allowed to dry and draped in the usual sterile fashion. T pop out was performed. The skin and the soft tissues were infiltrated with 1% lidocaine. A 5.5 [place] centesis needle catheter was advanced into left pleural space. Following aspiration of fluid, the ca theter was advanced and the needle removed. About 2400 cc of fluid was drained. No immediate complic ation was identified. FINDINGS: Large left pleural effusion. Aspirated fluid is serosanguinous. IMPRESSION: Left thoracentesis with 2.4L of serosanguinous fluid removed.
--- NOTE | 2024-05-29 13:48 | DVH ---
CHEST RADIOGRAPH Indication: POST PROCEDURE THORACENTESIS Technique: Single frontal view of the chest was obtained Comparison: XY CHEST PORTABLE on DOS: 05/29/24, XY CHEST PORTABLE on DOS: 05/28/24, XY CHEST PORTABLE on DOS: 05/27/24, XY CHEST PORTABLE on DOS: 05/26/24, XY CHEST XRAY 1 VIEW on DOS: 05/25/24, XY CHES T PORTABLE on DOS: 05/29/24 FINDINGS: There is cardiomegaly with small to moderate bilateral right pleural effusions and mild pulmonary vas cular congestion. Endotracheal tube and enteric tube appear unchanged. IMPRESSION: No pneumothorax status post thoracentesis Moderate right pleural effusion
[2024-05-29 16:05] LABS: Body Fluid Red Blood Cells 201845 CUMM (0-2000); Body Fluid White Blood Cells 4813 CUMM (0-200)
[2024-05-29 16:37] LABS: Body Fluid Polymorphonuclear 68 % (0-25)
--- NOTE | 2024-05-29 18:05 | DVHNC2 ---
CATIA PARR RESIDENT 05/29/24 1804: Procedure Note Procedure: ULTRASOUND-GUIDED LEFT INTERNAL JUGULAR CENTRAL VENOUS CANNULATION CPT Codes: 72509 (ultrasound guidance) 01494 (insertion of non-tunneled centrally inserted central venous catheter) 77878 (CXR interpretation) Time out time: 1730 pm Patient medications and allergies reviewed. The risks and benefits of the procedure and the sedation options and risk were discussed with the patient's healthcare proxy. All questions were answered and informed consent was obtained. Patient identification and proposed procedure were verified prior to the procedure by the physician, and a nurse in the patient's room. The heart rate, respiratory rate, oxygen saturations, blood pressure, adequacy of pulmonary ventilation, and response to care were monitored throughout the procedure. The physical status of the patient was reassessed after the procedure. DATE: 05/29/2024 Attending: Dr Fontenot PHYSICIAN: Catia Parr, PGY3, Anshul Santiago, PGY1 PREOPERATIVE DIAGNOSIS: Septic shock POSTOPERATIVE DIAGNOSIS: Septic shock PROCEDURE PERFORMED: Limited Ultrasound-guided LEFT internal jugular central line placement. ANESTHESIA: 2 mL of 1% lidocaine plain. ESTIMATED BLOOD LOSS: less than 5 mL. SPECIMENS: None. COMPLICATIONS: None. INDICATIONS FOR PROCEDURE: The patient is in need of large bore IV access for administration of fluids, including blood products and vasoactive drugs, possible transvenous cardiac pacing and CVP monitoring for hemodynamic instability. DESCRIPTION OF PROCEDURE IN DETAIL: The patient was lying in the Trendelenburg position with head turned 30 degrees away from the insertion site. The skin was thoroughly sponged with chlorhexidine and allowed to dry. All persons involved were shielded with hair nets, face masks and sterile gowns. With sterile-gloved hands the LEFT neck area was draped with the large disposable sterile field provided in the pre-manufactured kit. The skin and subcutaneous tissues superficial to the LEFT internal jugular vein were anesthetized with 2 mL of 1% lidocaine. The LEFT internal jugular vein was identified on ultrasound from the angle of the mandible down into the supraclavicular fossa using the linear ultrasound probe in the transverse orientation. The carotid artery was identified and avoided utilizing color-flow. The internal jugular vein was then placed in the center of the ultrasound field and compressed for patency. A movement artifact was identified as the needle was advanced through the skin and advanced toward the vessel. A real time hyperechoic signal revealed visualization of vascular needle entry into the lumen as blood was noted to flashback in the syringe. The needle was then held in place while the guide wire was advanced. The needle was then removed. Direct visualization of guide wire location within the vein was noted on ultrasound indicating proper placement and was document in the electronic medical record chart. A skin dilator was advanced over the guidewire and removed, and the triple-lumen catheter was then advanced over the guide wire into proper position. The guide wire was removed and discarded. The ports were aspirated which showed good blood return and then carefully flushed with normal saline. The catheter was stabilized and sutured to the skin with 2-0 silk at 4 anchor points. A sterile bio-patch and dressing was placed over the catheter, including the insertion site. The patient tolerated the procedure well. A chest x-ray was ordered for position confirmation. I reviewed the image immediately after it was taken at bedside. Post-procedure chest x-ray is ordered to r/o pneumothorax. It is pending at the time of writing this note. An image recording of the procedure accompanies the chart. Informed consent discussed w/: Yes Emergent procedure Patient or: No ISACC FONTENOT MD 06/01/24 1638: Date of Service: May 29, 2024 Billing Provider: ISACC FONTENOT MD Common Visit Codes: PROCEDURE ONLY Procedure Codes: 71538-MYLOBN NON-TUNNEL CV CATH CATIA PARR May 29, 2024 18:04 ISACC FONTENOT MD Jun 01, 2024 16:38
--- NOTE | 2024-05-29 18:42 | DVH ---
EXAM: XY CHEST XRAY 1 VIEW TECHNIQUE: Single frontal chest radiograph CLINICAL HISTORY: post central line placement COMPARISON: XY CHEST XRAY 1 VIEW on DOS: 05/29/24, XY CHEST PORTABLE on DOS: 05/29/24, XY CHEST BRENDA BLE on DOS: 05/28/24 Findings/Impression: Frontal chest radiograph demonstrates no acute osseous or superficial soft tissue abnormalities. Left sided IJ catheter terminates near the superior cavoatrial junction. Enteric tube is overlying th e plane of the stomach. Endotracheal tube terminates 8.5 cm from the aleena. Recommend advancing 3 cm for more optimal positi oning. The trachea is midline. The cardiac silhouette and mediastinum are within normal limits. Small bilateral pleural effusions with compressive atelectasis. A superimposed infectious process is not excluded. No pneumothorax. Critical Result: Malpositioned line Findings discussed with that attending nurse at 05/29/2024 06:39 PM, and acknowledged receipt and und erstanding of the findings.
[2024-05-29] MEDS: LACTULOSE 20Gm/30ML SOLN PO SCH (18:50)
[2024-05-30] VITALS (107 sets, daily range): BP systolic 92–119; BP diastolic 52–69; PULSE 71–106; RESP 13–29; TEMP 97.9–99.3; O2SAT 93–100
[2024-05-30 04:19] LABS: Hematocrit 28.7 % (41.0-53.0); Hemoglobin 9.6 g/dL (13.5-17.5); Mean Corpuscular Hemoglobin 28.4 pg (28.0-32.0); Mean Corpuscular Hgb Conc. 33.6 g/dL (32.0-36.0); Mean Corpuscular Volume 84.6 fL (80.0-100.0); Platelet Count (auto) 72 10^3/uL (140-450); Red Blood Cells 3.39 10^6/uL (4.5-5.90); Red Cell Distribution Width 16.2 % (11.8-14.3); White Blood Cell 17.5 10^3/uL (4.4-10.8)
[2024-05-30 04:22] LABS: Band Neutrophils % (manual) 0; Basophils % (manual) 0 (0.0-2.0); Blast Cells 0; Eosinophils % (manual) 0 (0-7); Metamyelocytes % 0; Myelocytes % 0; Promyelocytes % 0; Reactive Lymphocytes 0
[2024-05-30 04:43] LABS: Albumin 3.4 g/dL (3.2-4.8); Anion Gap 13 (5-15); BUN/Creatinine Ratio 24.3 (10.0-20.0); Calcium 9.4 mg/dL (8.7-10.4); Chloride 103 mmol/L (98-107)
[2024-05-30 04:44] LABS: Alanine Aminotransferase 186 U/L (7-40); Alkaline Phosphatase 152 U/L (46-116); Aspartate Aminotransferase 76 U/L (13-40); Bilirubin, Total 7.4 mg/dL (0.2-1.0); Carbon Dioxide 32 mmol/L (20-31); Glucose 118 mg/dL (74-106); Potassium 3.3 mmol/L (3.5-5.1); Sodium 148 mmol/L (136-145); Total Protein 5.8 g/dL (5.7-8.2)
[2024-05-30 04:47] LABS: Blood Urea Nitrogen 109 mg/dL (9-23)
--- NOTE | 2024-05-30 05:01 | DVH ---
CHEST RADIOGRAPH Indication: resp failure Technique: Single frontal view of the chest was obtained Comparison: XY CHEST XRAY 1 VIEW on DOS: 05/29/24, XY CHEST XRAY 1 VIEW on DOS: 05/29/24, XY CHEST PO RTABLE on DOS: 05/29/24 FINDINGS: Lines and Tubes: Endotracheal tube terminates 9.8cm above the aleena. The enteric tube courses below the left hemidiaphragms and the tip extends outside the field of view. The left central venous cathet er terminates in the super vena cava. Lungs: Bibasilar atelectasis. Pleura: Bilateral effusions. No pneumothorax. Cardiomediastinal contours: Stable. Bones: No acute osseous abnormality. IMPRESSION: 1. Stable position of the support lens and tube spirit endotracheal tube terminates 9.8 cm above the aleena and advancement is again recommended. 2. No significant change in bibasilar atelectasis. Bilateral effusions unchanged.
[2024-05-30] MEDS: POTASSIUM CHL 20MEQ/100ML 100 ML IV ONE (05:20)
[2024-05-30 05:46] LABS: Lymphocytes % (manual) 13 (10.0-50.0); Monocytes % (manual) 17 (0-12)
[2024-05-30 05:47] LABS: Platelet Estimate Decreased
[2024-05-30 08:00] LABS: Base Excess 10.1 mmol/L (-2.0-3.0)
[2024-05-30 08:36] LABS: Magnesium 2.5 mg/dL (1.6-2.6)
[2024-05-30 08:41] LABS: Phosphorus 8.5 mg/dL (2.4-5.1)
--- NOTE | 2024-05-30 10:29 | DVHPN2 ---
Progress Note Date Seen: May 30, 2024 Medical Necessity Reason Pt with a Central, PICC or Fol: Yes The following are medically ne: Central Line, Mendoza Catheter Reason for mendoza catheter: Strict I&O Subjective Review of Systems: RESPIRATORY:Abnormal (ated on ventilator) Other Systems: Patient seen and examined by myself on follow-up today, patient remained Objective vital signs Vital Sign Date Time Temp Pulse Resp B/P (MAP) Pulse Ox O2 Delivery O2 Flow Rate FiO2 05/30/24 09:41 104 24 99/63 (75) 97 30 05/30/24 07:00 98.6 209.5 05/30/24 06:00 Mechanical Ventilator+ Total Intake and Output 05/29/24 05/29/24 05/30/24 15:00 23:00 07:00 Intake Total 690.470 ml 872.381 ml 794.610 ml Output Total 1900 ml 2550 ml Balance 690.470 ml -1027.619 ml -1755.390 ml medications Current Medications Medications Dose Ordered Sig/Estela Route Start Time Stop Time Status Last Admin Dose Admin Nitroglycerin 0.4 mg Q5MINP PRN SL 05/19/24 17:00 Albuterol 2.5 mg Q4HPRN PRN NEB 05/19/24 17:15 Ipratropium [place] 0.5 mg Q4HPRN PRN NEB 05/19/24 17:15 Vasopressin 20 units/Sodium Chloride 100 ml @ 9 mls/hr Q11H7M IV 05/22/24 19:45 05/30/24 02:04 9 MLS/HR Vancomycin HCl 0 ml @ 0 mls/hr UD IV 05/22/24 20:15 Midazolam HCl 50 ml @ 1 mls/hr Q24H IV 05/22/24 21:30 05/29/24 22:26 3 MLS/HR Fentanyl Citrate 250 ml @ 2.5 mls/hr Q24H IV 05/22/24 21:30 05/30/24 06:00 12.5 MLS/HR Meropenem 50 ml @ 17 mls/hr Q12H IV 05/23/24 11:00 05/29/24 22:31 17 MLS/HR Dextrose 50 ml UD PRN IV 05/23/24 05:00 Cancel Insulin Glargine 20 units DAILY@1000 SC 05/23/24 10:00 05/30/24 09:57 20 UNITS Pantoprazole Sodium 40 mg DAILY IV 05/23/24 10:00 05/30/24 09:54 40 MG Dextrose 50 ml UD PRN IV 05/23/24 11:00 Cancel Diagnostic Test (Pha) 1 strip Q6HR 05/23/24 18:00 05/30/24 06:01 1 STRIP Insulin Human Regular Q6HR SC 05/23/24 18:00 05/30/24 06:01 2 UNITS Dextrose 50 ml UD PRN IV 05/23/24 16:15 Amiodarone HCl 250 ml @ 16.667 mls/ hr Q15H IV 05/25/24 05:30 05/30/24 03:50 16.667 MLS/HR Enteral Nutritional Formula 1,000 ml 55ML/HR GT 05/26/24 14:00 Fluconazole 100 ml @ 100 mls/hr DAILY IV 05/28/24 10:00 05/30/24 09:55 100 MLS/HR Enteral Nutritional Formula 1,000 ml 20ML/HR GT 05/27/24 14:30 05/27/24 18:01 1,000 ML Phenylephrine HCl 80 mg/Sodium Chloride 250 ml @ 7.5 mls/hr Q24H IV 05/28/24 12:30 05/29/24 06:47 7.5 MLS/HR Norepinephrine Bitartrate 32 mg/ Sodium Chloride 250 ml @ 0.938 mls/ hr Q24H IV 05/28/24 12:30 05/29/24 22:25 14.063 MLS/HR Lactulose 30 ml Q6HR PO 05/29/24 18:00 05/30/24 06:04 30 ML Sodium Chloride 1,000 ml @ 75 mls/hr [id number] IV 05/30/24 10:00 Potassium Chloride 100 ml @ 50 mls/hr Q2H IV 05/30/24 10:00 05/30/24 15:59 Furosemide 100 mg/ Sodium Chloride 110 ml @ 3.3 mls/hr Q24H IV 05/30/24 10:30 UNV laboratory and microbiology Laboratory Tests 05/30/24 03:22 Test 05/30/24 03:22 Range/Units Serum Glucose 118 H 74-106 mg/dL Microbiology Date/Time Source Procedure Growth Status 12/13/24 11:00 Nose MRSA Screen - Final Complete 05/22/24 20:03 Blood Blood Culture - Final NO GROWTH AFTER 5 DAYS OF INCUBATION. Complete 05/19/24 18:00 Voided Urine Urine Culture - Final Complete Problem List/Assessment/Plan Problem List/Assessment/Plan Acute kidney injury hemodynamically mediated ATN, FeNa > 2% Acute respiratory failure , intubated on ventilator Diastolic heart failure Shock with multiorgan dysfunction Atrial fibrillation with rapid ventricular response Possible pericarditis seen on echo Diabetes mellitus type 2 Pneumonia Hypokalemia liver cirrhosis Recommendations Kidney function started to improve, no need for hemodialysis Increased urine output IVF half NS at 85 cc/hour Decrease furosemide 3 milligram/hour IV pressors for blood pressure support Strict I&Os Cardiology consult We will continue to follow up Plan discussed with: Other (Nurse) My Orders My Orders Orders - ELVIRA SIMS MD Procedure Category Date Status Time Sod Chl 0.45% (Sodium PHA 05/30/24 In Process Chloride 0.45% Via 10:00 Potassium Chl PHA 05/30/24 In Process 20meq/100ml 10:00 Sodium Chl 0.9% PHA 05/30/24 Logged (So... W/Furosemide 10:30 Dietary Evaluation Review Comments: 1) If GI is accessible, pt is stable, consider Glucerna 1.2 @ 55 ml/hr x 24hr goal rate as tolerated 2) If pt remains NPO >3 days consider TPN to meet at least 75% of estimated needs 3) Advance pt diet when medically feasible to a Cardiac/CCHO 60g diet 4) Continue current plan of care Expected Outcomes/Goals: 1) Pt to receive nutrition support within 7 days of NPO status 2) Pt diet to advance 3) F/U in 2-3 days Muscle mass (Non-Severe): Mild Depletion (Moderate) ELVIRA SIMS MD May 30, 2024 10:29
[2024-05-30] MEDS: FUROSEMIDE INJECTION 100 MG in SODIUM CHL 0.9% 100 ML IV SCH (10:30)
[2024-05-30] MEDS: POTASSIUM CHL 20MEQ/100ML 100 ML IV SCH (10:41)
[2024-05-30] MEDS: SOD CHL 0.45% 1,000 ML IV SCH (10:42)
[2024-05-30] MEDS: VANCOMYCIN 500mg/100mL 100 ML IV ONE (11:14)
[2024-05-30 13:06] LABS: Protein, Body Fluid 3.5 g/dL (.)
--- NOTE | 2024-05-30 13:10 | DVHPN2 ---
Progress Note Date Seen: May 30, 2024 Medical Necessity Reason Pt with a Central, PICC or Fol: Yes The following are medically ne: Central Line, Mendoza Catheter Reason for mendoza catheter: Strict I&O Subjective Patient reports: No new complaints Review of Systems: HEENT:Normal, CVS:Normal, RESPIRATORY:Normal, GI:Normal, :Normal, MSK:Normal, NEURO:Normal Objective vital signs Vital Sign Date Time Temp Pulse Resp B/P (MAP) Pulse Ox O2 Delivery O2 Flow Rate FiO2 05/30/24 11:43 101 24 105/57 (73) 96 30 05/30/24 10:00 Mechanical Ventilator+ 05/30/24 07:00 98.6 209.5 Total Intake and Output 05/29/24 05/29/24 05/30/24 15:00 23:00 07:00 Intake Total 690.470 ml 872.381 ml 794.610 ml Output Total 1900 ml 2550 ml Balance 690.470 ml -1027.619 ml -1755.390 ml medications Current Medications Medications Dose Ordered Sig/Estela Route Start Time Stop Time Status Last Admin Dose Admin Nitroglycerin 0.4 mg Q5MINP PRN SL 05/19/24 17:00 Albuterol 2.5 mg Q4HPRN PRN NEB 05/19/24 17:15 Ipratropium [place] 0.5 mg Q4HPRN PRN NEB 05/19/24 17:15 Vasopressin 20 units/Sodium Chloride 100 ml @ 9 mls/hr Q11H7M IV 05/22/24 19:45 05/30/24 02:04 9 MLS/HR Vancomycin HCl 0 ml @ 0 mls/hr UD IV 05/22/24 20:15 Midazolam HCl 50 ml @ 1 mls/hr Q24H IV 05/22/24 21:30 05/30/24 12:32 3 MLS/HR Fentanyl Citrate 250 ml @ 2.5 mls/hr Q24H IV 05/22/24 21:30 05/30/24 06:00 12.5 MLS/HR Meropenem 50 ml @ 17 mls/hr Q12H IV 05/23/24 11:00 05/30/24 12:24 17 MLS/HR Dextrose 50 ml UD PRN IV 05/23/24 05:00 Cancel Insulin Glargine 20 units DAILY@1000 SC 05/23/24 10:00 05/30/24 09:57 20 UNITS Pantoprazole Sodium 40 mg DAILY IV 05/23/24 10:00 05/30/24 09:54 40 MG Dextrose 50 ml UD PRN IV 05/23/24 11:00 Cancel Diagnostic Test (Pha) 1 strip Q6HR 05/23/24 18:00 05/30/24 12:35 1 STRIP Insulin Human Regular Q6HR SC 05/23/24 18:00 05/30/24 12:37 3 UNITS Dextrose 50 ml UD PRN IV 05/23/24 16:15 Amiodarone HCl 250 ml @ 16.667 mls/ hr Q15H IV 05/25/24 05:30 05/30/24 03:50 16.667 MLS/HR Enteral Nutritional Formula 1,000 ml 55ML/HR GT 05/26/24 14:00 Fluconazole 100 ml @ 100 mls/hr DAILY IV 05/28/24 10:00 05/30/24 09:55 100 MLS/HR Enteral Nutritional Formula 1,000 ml 20ML/HR GT 05/27/24 14:30 05/27/24 18:01 1,000 ML Phenylephrine HCl 80 mg/Sodium Chloride 250 ml @ 7.5 mls/hr Q24H IV 05/28/24 12:30 05/29/24 06:47 7.5 MLS/HR Norepinephrine Bitartrate 32 mg/ Sodium Chloride 250 ml @ 0.938 mls/ hr Q24H IV 05/28/24 12:30 05/29/24 22:25 14.063 MLS/HR Lactulose 30 ml Q6HR PO 05/29/24 18:00 05/30/24 12:34 30 ML Sodium Chloride 1,000 ml @ 75 mls/hr [id number] IV 05/30/24 10:00 05/30/24 10:42 75 MLS/HR Potassium Chloride 100 ml @ 50 mls/hr Q2H IV 05/30/24 10:00 05/30/24 15:59 05/30/24 12:23 50 MLS/HR Furosemide 100 mg/ Sodium Chloride 110 ml @ 3.3 mls/hr Q24H IV 05/30/24 10:30 Examination: GENERAL:Normal, HEENT:Normal, NECK:Normal, LUNGS:Normal, LUNGS:Abnormal (intubated), CVS:Normal, ABDOMEN:Normal, MSK:Normal, SKIN:Normal, NEURO:Normal, :Normal laboratory and microbiology Laboratory Tests 05/30/24 09:39 05/30/24 03:22 Test 05/30/24 03:22 Range/Units Serum Glucose 118 H 74-106 mg/dL Microbiology Date/Time Source Procedure Growth Status 05/29/24 15:14 Pleural Fluid Gram Stain Pending Resulted 05/29/24 15:14 Pleural Fluid Body Fluid Culture - Preliminary Resulted 05/24/24 11:00 Nose MRSA Screen - Final Complete 05/22/24 20:03 Blood Blood Culture - Final NO GROWTH AFTER 5 DAYS OF INCUBATION. Complete 05/19/24 18:00 Voided Urine Urine Culture - Final Complete Problem List/Assessment/Plan Problem List/Assessment/Plan Problem List/Assessment/Plan Neurology : - Patient is sedated Cardiovascular : # cardiac arrest S/P CPR # AFib with RVR: on amiodarone iv, dc iv heparin #Stable angina -s/p C # dyslipidemia - Respiratory : # Acute hypoxic respiratory failure due to possible pneumonia # septic shock due to pneumonia # possible Gm +/- bacterial Pneumonia # Emphysema with tobacco dependence - now on mechanical ventilation ( FiO2 70%, PEEP: 8, F: 30, Vt: 650) - continue empiric antibiotic, meropenem and vancomycin - continue breathing treatment Genitourinary: # Acute kidney injury secondary to hemodynamically mediated - avoid nephrotoxic agents - lasix drip Gastrointestinal : # history of constipation: lactulose # acute transaminitis secondary to shock liver - monitor liver function Infectious Disease : # septic shock due to pneumonia - continue antibiotic, meropenem and vancomycin, add diflucan Endocrine : # Type 2 diabetes mellitus - hemoglobin A1c on 05/19/2024: 6.8 - insulin SS, lantus - monitor blood glucose Skin : # basal cell skin carcinoma Hematology : # leukocytosis due to pneumonia - monitor morning labs # possible PVD - ordered lower extremity arterial Doppler # rule out DVT - lower extremity Venous Doppler ordered # thrombocytopenia: dc heparin, improving Nutrition : Prophylaxis for PUD : Protonix IV 40 mg daily Prophylaxis for DVT: Waiting for CT head to start blood thinner Drips Fentanyl 50 Versed 3 NE 30 Vasopressin 0.03 Neosyn: 108 Invasive access Mendoza catheter 12/11/24 Endotracheal tube 05/22/24 Rt Femoral central line 05/22/24 Goal of care discussed with daughter: Full code for now Critical Care time spent 81 minutes including patient care, chart review and updating family, excluding procedures. long discussion with daughter Plan discussed with: Daughter My Orders My Orders Orders - ISACC FONTENOT MD Procedure Category Date Status Time Body Fluid Culture W/ SIMONA 05/29/24 In Process GS 15:14 Us Guided Vascular US 05/29/24 Logged Access 15:38 Cleanse Wound With Ns SANTY 05/29/24 In Process 15:14 Cover Wound With Foam SANTY 05/29/24 In Process Dressing 15:14 Complete Blood Count LAB 05/31/24 Verified 06:00 Comprehensive LAB 05/31/24 Verified Metabolic Panel 06:00 Chest Portable XY 05/31/24 Logged 06:00 Abg W/ Co-Ox RT 05/31/24 Logged 06:00 Dietary Evaluation Review Comments: 1) If GI is accessible, pt is stable, consider Glucerna 1.2 @ 55 ml/hr x 24hr goal rate as tolerated 2) If pt remains NPO >3 days consider TPN to meet at least 75% of estimated needs 3) Advance pt diet when medically feasible to a Cardiac/CCHO 60g diet 4) Continue current plan of care Expected Outcomes/Goals: 1) Pt to receive nutrition support within 7 days of NPO status 2) Pt diet to advance 3) F/U in 2-3 days Muscle mass (Non-Severe): Mild Depletion (Moderate) Critical Care Time (mins): 81 (critical care time 81 mins) Date of Service: May 30, 2024 Billing Provider: ISACC FONTENOT MD Common Visit Codes: [id number] CARE 30-74 MIN, [id number] CARE-EACH +30MIN ISACC FONTENOT MD May 30, 2024 13:10
--- NOTE | 2024-05-30 16:17 | DVHPN2 ---
Progress Note Date Seen: May 30, 2024 Medical Necessity Reason Pt with a Central, PICC or Fol: Yes The following are medically ne: Central Line, Mendoza Catheter Reason for mendoza catheter: Strict I&O Subjective Review of Systems: RESPIRATORY:Abnormal Other Systems: Patient seen and examined by myself on follow-up today, patient remained intubated on ventilator Objective vital signs Vital Sign Date Time Temp Pulse Resp B/P (MAP) Pulse Ox O2 Delivery O2 Flow Rate FiO2 05/30/24 15:59 74 24 117/61 (79) 97 30 05/30/24 14:45 98.6 209.5 05/30/24 14:00 Mechanical Ventilator+ Total Intake and Output 05/29/24 05/29/24 05/30/24 15:00 23:00 07:00 Intake Total 690.470 ml 872.381 ml 862.840 ml Output Total 1900 ml 2550 ml Balance 690.470 ml -1027.619 ml -1687.160 ml medications Current Medications Medications Dose Ordered Sig/Estela Route Start Time Stop Time Status Last Admin Dose Admin Nitroglycerin 0.4 mg Q5MINP PRN SL 05/19/24 17:00 Albuterol 2.5 mg Q4HPRN PRN NEB 05/19/24 17:15 Ipratropium [place] 0.5 mg Q4HPRN PRN NEB 05/19/24 17:15 Vasopressin 20 units/Sodium Chloride 100 ml @ 9 mls/hr Q11H7M IV 05/22/24 19:45 05/30/24 13:53 9 MLS/HR Vancomycin HCl 0 ml @ 0 mls/hr UD IV 05/22/24 20:15 Midazolam HCl 50 ml @ 1 mls/hr Q24H IV 05/22/24 21:30 05/30/24 12:32 3 MLS/HR Fentanyl Citrate 250 ml @ 2.5 mls/hr Q24H IV 05/22/24 21:30 05/30/24 06:00 12.5 MLS/HR Meropenem 50 ml @ 17 mls/hr Q12H IV 05/23/24 11:00 05/30/24 12:24 17 MLS/HR Dextrose 50 ml UD PRN IV 05/23/24 05:00 Cancel Insulin Glargine 20 units DAILY@1000 SC 05/23/24 10:00 05/30/24 09:57 20 UNITS Pantoprazole Sodium 40 mg DAILY IV 05/23/24 10:00 05/30/24 09:54 40 MG Dextrose 50 ml UD PRN IV 05/23/24 11:00 Cancel Diagnostic Test (Pha) 1 strip Q6HR 05/23/24 18:00 05/30/24 12:35 1 STRIP Insulin Human Regular Q6HR SC 05/23/24 18:00 05/30/24 12:37 3 UNITS Dextrose 50 ml UD PRN IV 05/23/24 16:15 Amiodarone HCl 250 ml @ 16.667 mls/ hr Q15H IV 05/25/24 05:30 05/30/24 03:50 16.667 MLS/HR Enteral Nutritional Formula 1,000 ml 55ML/HR GT 05/26/24 14:00 Fluconazole 100 ml @ 100 mls/hr DAILY IV 05/28/24 10:00 05/30/24 09:55 100 MLS/HR Enteral Nutritional Formula 1,000 ml 20ML/HR GT 05/27/24 14:30 05/27/24 18:01 1,000 ML Phenylephrine HCl 80 mg/Sodium Chloride 250 ml @ 7.5 mls/hr Q24H IV 05/28/24 12:30 05/29/24 06:47 7.5 MLS/HR Norepinephrine Bitartrate 32 mg/ Sodium Chloride 250 ml @ 0.938 mls/ hr Q24H IV 05/28/24 12:30 05/30/24 16:09 12.188 MLS/HR Lactulose 30 ml Q6HR PO 05/29/24 18:00 05/30/24 12:34 30 ML Sodium Chloride 1,000 ml @ 75 mls/hr [id number] IV 05/30/24 10:00 05/30/24 10:42 75 MLS/HR Furosemide 100 mg/ Sodium Chloride 110 ml @ 3.3 mls/hr Q24H IV 05/30/24 10:30 Examination: LUNGS:Normal, CVS:Normal, MSK:Normal laboratory and microbiology Laboratory Tests 05/30/24 09:39 05/30/24 03:22 Test 05/30/24 03:22 Range/Units Serum Glucose 118 H 74-106 mg/dL Microbiology Date/Time Source Procedure Growth Status 05/29/24 15:14 Pleural Fluid Gram Stain Pending Resulted 05/29/24 15:14 Pleural Fluid Body Fluid Culture - Preliminary Resulted 05/24/24 11:00 Nose MRSA Screen - Final Complete 05/22/24 20:03 Blood Blood Culture - Final NO GROWTH AFTER 5 DAYS OF INCUBATION. Complete 05/19/24 18:00 Voided Urine Urine Culture - Final Complete Problem List/Assessment/Plan Problem List/Assessment/Plan Acute kidney injury hemodynamically mediated ATN, FeNa > 2% Acute respiratory failure , intubated on ventilator Diastolic heart failure Shock with multiorgan dysfunction Atrial fibrillation with rapid ventricular response Possible pericarditis seen on echo Diabetes mellitus type 2 Pneumonia Hypokalemia liver cirrhosis Recommendations Kidney function continue to improve Increased urine output IVF half NS at 85 cc/hour Decrease furosemide 3 milligram/hour IV pressors for blood pressure support Strict I&Os Cardiology consult We will continue to follow up Plan discussed with: Daughter, Other (Nurse) My Orders My Orders Orders - ELVIRA SIMS MD Procedure Category Date Status Time Sod Chl 0.45% (Sodium PHA 05/30/24 In Process Chloride 0.45% Via 10:00 Sodium Chl 0.9% PHA 05/30/24 In Process (So... W/Furosemide 10:30 Dietary Evaluation Review Comments: 1) If GI is accessible, pt is stable, consider Glucerna 1.2 @ 55 ml/hr x 24hr goal rate as tolerated 2) If pt remains NPO >3 days consider TPN to meet at least 75% of estimated needs 3) Advance pt diet when medically feasible to a Cardiac/CCHO 60g diet 4) Continue current plan of care Expected Outcomes/Goals: 1) Pt to receive nutrition support within 7 days of NPO status 2) Pt diet to advance 3) F/U in 2-3 days Muscle mass (Non-Severe): Mild Depletion (Moderate) ELVIRA SIMS MD May 30, 2024 16:17
[2024-05-31] VITALS (106 sets, daily range): BP systolic 76–119; BP diastolic 43–61; PULSE 70–123; RESP 5–45; TEMP 97.2–99.7; O2SAT 92–100
[2024-05-31 03:58] LABS: Hematocrit 27.1 % (41.0-53.0); Hemoglobin 8.7 g/dL (13.5-17.5); Mean Corpuscular Hemoglobin 27.9 pg (28.0-32.0); Mean Corpuscular Hgb Conc. 32.3 g/dL (32.0-36.0); Mean Corpuscular Volume 86.5 fL (80.0-100.0); Platelet Count (auto) 103 10^3/uL (140-450); Red Blood Cells 3.13 10^6/uL (4.5-5.90); Red Cell Distribution Width 17.2 % (11.8-14.3); White Blood Cell 17.3 10^3/uL (4.4-10.8)
[2024-05-31 04:13] LABS: Band Neutrophils % (manual) 0; Basophils % (manual) 0 (0.0-2.0); Blast Cells 0; Eosinophils % (manual) 0 (0-7); Metamyelocytes % 0; Myelocytes % 0; Promyelocytes % 0; Reactive Lymphocytes 0
[2024-05-31 04:21] LABS: Anion Gap 10 (5-15); BUN/Creatinine Ratio 30.4 (10.0-20.0); Calcium 9.1 mg/dL (8.7-10.4); Chloride 105 mmol/L (98-107)
[2024-05-31 04:41] LABS: Blood Urea Nitrogen 112 mg/dL (9-23); Carbon Dioxide 37 mmol/L (20-31); Glucose 134 mg/dL (74-106); Potassium 3.1 mmol/L (3.5-5.1); Sodium 152 mmol/L (136-145)
[2024-05-31 04:42] LABS: Alanine Aminotransferase 131 U/L (7-40); Alkaline Phosphatase 150 U/L (46-116); Aspartate Aminotransferase 72 U/L (13-40); Bilirubin, Total 7.6 mg/dL (0.2-1.0); Total Protein 5.6 g/dL (5.7-8.2)
[2024-05-31 04:52] LABS: Base Excess 10.6 mmol/L (-2.0-3.0)
[2024-05-31 04:55] LABS: Lymphocytes % (manual) 14 (10.0-50.0); Monocytes % (manual) 13 (0-12); Smudge Cells 1 /100 WBC
[2024-05-31 04:56] LABS: Large Platelets FEW; Ovalocytes FEW; Platelet Estimate Decrea; Stomatocytes Few
--- NOTE | 2024-05-31 05:18 | DVH ---
CHEST RADIOGRAPH Indication: resp failure Technique: Single frontal view of the chest was obtained COMPARISON: XY CHEST PORTABLE on DOS: 05/30/24, XY CHEST XRAY 1 VIEW on DOS: 05/29/24, XY CHEST XRAY 1 VIEW on DOS: 05/29/24, XY CHEST PORTABLE on DOS: 05/29/24, XY CHEST PORTABLE on DOS: 05/28/24 FINDINGS: Lines and Tubes: Endotracheal tube, enteric catheter and left central venous catheter in satisfactory position. Lungs: Pulmonary vascular congestion Pleura: Small bilateral pleural effusions. No pneumothorax. Cardiomediastinal contours: Unremarkable Bones: Unremarkable IMPRESSION: Lines and tubes in satisfactory position. No significant interval change.
[2024-05-31] MEDS: PROPOFOL 100 ML IV SCH (11:15)
[2024-05-31] MEDS: AMIODARONE HCL 200 MG TAB PO SCH (11:55)
[2024-05-31] MEDS: VANCOMYCIN 500mg/100mL 100 ML IV ONE (13:22)
[2024-05-31] MEDS: POTASSIUM CHL 20MEQ/100ML 100 ML IV SCH (14:15)
--- NOTE | 2024-05-31 14:16 | DVHPN2 ---
Progress Note Date Seen: May 31, 2024 Medical Necessity Reason Pt with a Central, PICC or Fol: Yes The following are medically ne: Central Line, Mendoza Catheter Reason for mendoza catheter: Strict I&O Subjective Review of Systems: RESPIRATORY:Abnormal Other Systems: Patient seen and examined by myself today in follow-up Patient remained intubated on ventilator Objective vital signs Vital Sign Date Time Temp Pulse Resp B/P (MAP) Pulse Ox O2 Delivery O2 Flow Rate FiO2 05/31/24 13:39 30 05/31/24 13:39 74 05/31/24 13:39 26 94 Mechanical Ventilator+ 05/31/24 11:50 97/52 (67) 05/31/24 11:30 97.5 207.5 Total Intake and Output 05/30/24 05/30/24 05/31/24 15:00 23:00 07:00 Intake Total 791.716 ml 873.771 ml 1263.585 ml Output Total 2900 ml 2000 ml Balance 791.716 ml -2026.229 ml -736.415 ml medications Current Medications Medications Dose Ordered Sig/Estela Route Start Time Stop Time Status Last Admin Dose Admin Nitroglycerin 0.4 mg Q5MINP PRN SL 05/19/24 17:00 Albuterol 2.5 mg Q4HPRN PRN NEB 05/19/24 17:15 Ipratropium [place] 0.5 mg Q4HPRN PRN NEB 05/19/24 17:15 Vancomycin HCl 0 ml @ 0 mls/hr UD IV 05/22/24 20:15 Midazolam HCl 50 ml @ 1 mls/hr Q24H IV 05/22/24 21:30 05/31/24 03:40 3 MLS/HR Fentanyl Citrate 250 ml @ 2.5 mls/hr Q24H IV 05/22/24 21:30 05/30/24 23:06 12.5 MLS/HR Meropenem 50 ml @ 17 mls/hr Q12H IV 05/23/24 11:00 05/31/24 09:45 17 MLS/HR Dextrose 50 ml UD PRN IV 05/23/24 05:00 Cancel Insulin Glargine 20 units DAILY@1000 SC 05/23/24 10:00 05/31/24 10:00 20 UNITS Pantoprazole Sodium 40 mg DAILY IV 05/23/24 10:00 05/31/24 08:03 40 MG Dextrose 50 ml UD PRN IV 05/23/24 11:00 Cancel Diagnostic Test (Pha) 1 strip Q6HR 05/23/24 18:00 05/31/24 11:22 1 STRIP Insulin Human Regular Q6HR SC 05/23/24 18:00 05/31/24 11:18 3 UNITS Dextrose 50 ml UD PRN IV 05/23/24 16:15 Enteral Nutritional Formula 1,000 ml 55ML/HR GT 05/26/24 14:00 Fluconazole 100 ml @ 100 mls/hr DAILY IV 05/28/24 10:00 05/31/24 08:04 100 MLS/HR Enteral Nutritional Formula 1,000 ml 20ML/HR GT 05/27/24 14:30 05/27/24 18:01 1,000 ML Phenylephrine HCl 80 mg/Sodium Chloride 250 ml @ 7.5 mls/hr Q24H IV 05/28/24 12:30 05/29/24 06:47 7.5 MLS/HR Norepinephrine Bitartrate 32 mg/ Sodium Chloride 250 ml @ 0.938 mls/ hr Q24H IV 05/28/24 12:30 05/30/24 16:09 12.188 MLS/HR Lactulose 30 ml Q6HR PO 05/29/24 18:00 05/31/24 11:21 30 ML Sodium Chloride 1,000 ml @ 75 mls/hr [id number] IV 05/30/24 10:00 05/31/24 11:45 75 MLS/HR Furosemide 100 mg/ Sodium Chloride 110 ml @ 3.3 mls/hr Q24H IV 05/30/24 10:30 05/31/24 07:23 3.3 MLS/HR Acetazolamide Sodium 500 mg DAILY IV 06/01/24 10:00 Propofol 100 ml @ 2.685 mls/ hr Q24H IV 05/31/24 11:15 Amiodarone HCl 200 mg BID PO 05/31/24 11:30 05/31/24 11:55 200 MG Examination: LUNGS:Normal, CVS:Normal, MSK:Normal laboratory and microbiology Laboratory Tests 05/31/24 03:00 Test 05/31/24 03:00 Range/Units Serum Glucose 134 H 74-106 mg/dL Microbiology Date/Time Source Procedure Growth Status 05/29/24 15:14 Pleural Fluid Gram Stain Pending Resulted 05/29/24 15:14 Pleural Fluid Body Fluid Culture - Preliminary Resulted 05/24/24 11:00 Nose MRSA Screen - Final Complete 05/22/24 20:03 Blood Blood Culture - Final NO GROWTH AFTER 5 DAYS OF INCUBATION. Complete 05/19/24 18:00 Voided Urine Urine Culture - Final Complete Problem List/Assessment/Plan Problem List/Assessment/Plan Acute kidney injury hemodynamically mediated ATN, FeNa > 2% Acute respiratory failure , intubated on ventilator Diastolic heart failure Shock with multiorgan dysfunction Atrial fibrillation with rapid ventricular response Possible pericarditis seen on echo Diabetes mellitus type 2 Pneumonia Hypokalemia liver cirrhosis Recommendations Resolving ATN Increased urine output IVF half NS at 75 cc/hour KCL replacement Discontinue furosemide drip IV pressors for blood pressure support Strict I&Os Cardiology consult We will continue to follow up Plan discussed with: Other (Nurse) Dietary Evaluation Review Comments: 1) If GI is accessible, pt is stable, consider Glucerna 1.2 @ 55 ml/hr x 24hr goal rate as tolerated 2) If pt remains NPO >3 days consider TPN to meet at least 75% of estimated needs 3) Advance pt diet when medically feasible to a Cardiac/[facility]HO 60g diet 4) Continue current plan of care Expected Outcomes/Goals: 1) Pt to receive nutrition support within 7 days of NPO status 2) Pt diet to advance 3) F/U in 2-3 days Muscle mass (Non-Severe): Mild Depletion (Moderate) ELVIRA SIMS MD May 31, 2024 14:16
--- NOTE | 2024-05-31 14:37 | DVHPN2 ---
Progress Note Date Seen: May 31, 2024 Medical Necessity Reason Pt with a Central, PICC or Fol: Yes The following are medically ne: Central Line, Mendoza Catheter Reason for mendoza catheter: Strict I&O Subjective Patient reports: Other (Patient intubated ) Review of Systems: HEENT:Abnormal (cannot be obtained ) Objective vital signs Vital Sign Date Time Temp Pulse Resp B/P (MAP) Pulse Ox O2 Delivery O2 Flow Rate FiO2 05/31/24 13:58 78 26 98/53 (68) 93 30 05/31/24 13:39 Mechanical Ventilator+ 05/31/24 11:30 97.5 207.5 Total Intake and Output 05/30/24 05/30/24 05/31/24 15:00 23:00 07:00 Intake Total 791.716 ml 873.771 ml 1263.585 ml Output Total 2900 ml 2000 ml Balance 791.716 ml -2026.229 ml -736.415 ml medications Current Medications Medications Dose Ordered Sig/Estela Route Start Time Stop Time Status Last Admin Dose Admin Nitroglycerin 0.4 mg Q5MINP PRN SL 05/19/24 17:00 Albuterol 2.5 mg Q4HPRN PRN NEB 05/19/24 17:15 Ipratropium [place] 0.5 mg Q4HPRN PRN NEB 05/19/24 17:15 Vancomycin HCl 0 ml @ 0 mls/hr UD IV 05/22/24 20:15 Midazolam HCl 50 ml @ 1 mls/hr Q24H IV 05/22/24 21:30 05/31/24 03:40 3 MLS/HR Fentanyl Citrate 250 ml @ 2.5 mls/hr Q24H IV 05/22/24 21:30 05/30/24 23:06 12.5 MLS/HR Meropenem 50 ml @ 17 mls/hr Q12H IV 05/23/24 11:00 05/31/24 09:45 17 MLS/HR Dextrose 50 ml UD PRN IV 05/23/24 05:00 Cancel Insulin Glargine 20 units DAILY@1000 SC 05/23/24 10:00 05/31/24 10:00 20 UNITS Pantoprazole Sodium 40 mg DAILY IV 05/23/24 10:00 05/31/24 08:03 40 MG Dextrose 50 ml UD PRN IV 05/23/24 11:00 Cancel Diagnostic Test (Pha) 1 strip Q6HR 05/23/24 18:00 05/31/24 11:22 1 STRIP Insulin Human Regular Q6HR SC 05/23/24 18:00 05/31/24 11:18 3 UNITS Dextrose 50 ml UD PRN IV 05/23/24 16:15 Enteral Nutritional Formula 1,000 ml 55ML/HR GT 05/26/24 14:00 Fluconazole 100 ml @ 100 mls/hr DAILY IV 05/28/24 10:00 05/31/24 08:04 100 MLS/HR Enteral Nutritional Formula 1,000 ml 20ML/HR GT 05/27/24 14:30 05/27/24 18:01 1,000 ML Phenylephrine HCl 80 mg/Sodium Chloride 250 ml @ 7.5 mls/hr Q24H IV 05/28/24 12:30 05/29/24 06:47 7.5 MLS/HR Norepinephrine Bitartrate 32 mg/ Sodium Chloride 250 ml @ 0.938 mls/ hr Q24H IV 05/28/24 12:30 05/30/24 16:09 12.188 MLS/HR Lactulose 30 ml Q6HR PO 05/29/24 18:00 05/31/24 11:21 30 ML Sodium Chloride 1,000 ml @ 75 mls/hr [id number] IV 05/30/24 10:00 05/31/24 11:45 75 MLS/HR Acetazolamide Sodium 500 mg DAILY IV 06/01/24 10:00 Propofol 100 ml @ 2.685 mls/ hr Q24H IV 05/31/24 11:15 Amiodarone HCl 200 mg BID PO 05/31/24 11:30 05/31/24 11:55 200 MG Potassium Chloride 100 ml @ 50 mls/hr Q2H IV 05/31/24 14:15 05/31/24 18:14 UNV Examination: GENERAL:Abnormal, LUNGS:Abnormal, SKIN:Normal, NEURO:Abnormal laboratory and microbiology Laboratory Tests 05/31/24 03:00 Test 05/31/24 03:00 Range/Units Serum Glucose 134 H 74-106 mg/dL Microbiology Date/Time Source Procedure Growth Status 05/29/24 15:14 Pleural Fluid Gram Stain Pending Resulted 05/29/24 15:14 Pleural Fluid Body Fluid Culture - Preliminary Resulted 05/24/24 11:00 Nose MRSA Screen - Final Complete 05/22/24 20:03 Blood Blood Culture - Final NO GROWTH AFTER 5 DAYS OF INCUBATION. Complete 05/19/24 18:00 Voided Urine Urine Culture - Final Complete Problem List/Assessment/Plan Problem List/Assessment/Plan Neurology : - Patient is sedated Cardiovascular : # cardiac arrest S/P CPR # AFib with RVR: on amiodarone iv, dc iv heparin #Stable angina -s/p LHC # dyslipidemia - Respiratory : # Acute hypoxic respiratory failure due to possible pneumonia - ABG reviewed. Patient does have metabolic alkalosis. I will add diamox. CPAP trial. # septic shock due to pneumonia # possible Gm +/- bacterial Pneumonia # Emphysema with tobacco dependence - now on mechanical ventilation - continue empiric antibiotic, completed antibiotics. Will dc fluconazole - continue breathing treatment Genitourinary: # Acute kidney injury secondary to hemodynamically mediated - avoid nephrotoxic agents - lasix drip Gastrointestinal : # history of constipation: lactulose # acute transaminitis secondary to shock liver - monitor liver function Infectious Disease : # septic shock due to pneumonia - continue antibiotic, meropenem and vancomycin, add diflucan Endocrine : # Type 2 diabetes mellitus - hemoglobin A1c on 05/19/2024: 6.8 - insulin SS, lantus - monitor blood glucose Skin : # basal cell skin carcinoma Hematology : # leukocytosis due to pneumonia - monitor morning labs # possible PVD - ordered lower extremity arterial Doppler # rule out DVT - lower extremity Venous Doppler ordered # thrombocytopenia: dc heparin, improving Nutrition : Prophylaxis for PUD : Protonix IV 40 mg daily Prophylaxis for DVT: Head CT negative Drips Fentanyl 50 Versed 3 NE 30 Vasopressin 0.03 Neosyn: 108 Invasive access Mendoza catheter 05/22/24 Endotracheal tube 05/22/24 Rt Femoral central line 05/22/24 Goal of care discussed with daughter: Full code for now Critical Care time spent 81 minutes including patient care, chart review and updating family, excluding procedures. Plan discussed with: Other My Orders My Orders Orders - SARAH STOVALL MD Procedure Category Date Status Time Complete Blood Count LAB 06/01/24 Verified 04:00 Basic Metabolic Panel LAB 06/01/24 Verified 04:00 Acetazolamide PHA 06/01/24 In Process Injection (Diamox 10:00 Chest Portable XY 06/01/24 Logged 04:00 Ventilator Orders RT 05/31/24 Transmitted 10:44 Propofol (Diprivan) PHA 05/31/24 In Process 11:15 Modified Resuscitive CODE 05/31/24 Transmitted Measures Amiodarone Tablet PHA 05/31/24 In Process (Cordarone Tablet) 11:30 Dietary Evaluation Review Comments: 1) If GI is accessible, pt is stable, consider Glucerna 1.2 @ 55 ml/hr x 24hr goal rate as tolerated 2) If pt remains NPO >3 days consider TPN to meet at least 75% of estimated needs 3) Advance pt diet when medically feasible to a Cardiac/[facility] 60g diet 4) Continue current plan of care Expected Outcomes/Goals: 1) Pt to receive nutrition support within 7 days of NPO status 2) Pt diet to advance 3) F/U in 2-3 days Muscle mass (Non-Severe): Mild Depletion (Moderate) Date of Service: May 31, 2024 Billing Provider: SARAH STOVALL MD Common Visit Codes: [id number] CARE 30-74 MIN SARAH STOVALL MD May 31, 2024 14:37
[2024-05-31] MEDS ORDERED: AMIODARONE HCL 200 MG TAB PO SCH (22:00)
[2024-06-01] VITALS (109 sets, daily range): BP systolic 74–113; BP diastolic 43–64; PULSE 85–117; RESP 15–34; TEMP 97.3–99.5; O2SAT 91–100
[2024-06-01] MEDS: fentaNYL Drip 2500mCg/250mlNS 250 ML IV SCH (00:45)
[2024-06-01 03:32] LABS: Basophils # (auto) 0.1 10 ^3/uL (0-0.2); Basophils % (auto) 0.3 % (0.0-2.0); Eosinophils # (auto) 0 10 ^3/uL (0-0.8); Hematocrit 30.5 % (41.0-53.0); Hemoglobin 9.6 g/dL (13.5-17.5); Lymphocytes # (auto) 1.9 10 ^3/uL (0.4-5.4); Lymphocytes % (auto) 8.3 % (10.0-50.0); Mean Corpuscular Hemoglobin 27.7 pg (28.0-32.0); Mean Corpuscular Hgb Conc. 31.5 g/dL (32.0-36.0); Mean Corpuscular Volume 87.9 fL (80.0-100.0); Monocytes # (auto) 2.5 10 ^3/uL (0-1.3); Monocytes % (auto) 10.9 % (0.0-12.0); Neutrophils # (auto) 18.4 10 ^3/uL (1.6-8.6); Neutrophils % (auto) 80.5 % (37.0-80.0); Nucleated Red Blood Cells % 0.1 %; Platelet Count (auto) 171 10^3/uL (140-450); Red Blood Cells 3.47 10^6/uL (4.5-5.90); Red Cell Distribution Width 17.7 % (11.8-14.3); White Blood Cell 22.9 10^3/uL (4.4-10.8)
[2024-06-01 03:41] LABS: Anion Gap 14 (5-15); Calcium 8.9 mg/dL (8.7-10.4)
[2024-06-01 03:47] LABS: Carbon Dioxide 33 mmol/L (20-31); Chloride 108 mmol/L (98-107); Glucose 136 mg/dL (74-106); Potassium 3.1 mmol/L (3.5-5.1); Sodium 155 mmol/L (136-145)
[2024-06-01 04:08] LABS: Blood Urea Nitrogen 119 mg/dL (9-23)
[2024-06-01] MEDS: POTASSIUM CHL 20MEQ/100ML 100 ML IV ONE (05:32)
--- NOTE | 2024-06-01 05:37 | DVH ---
CHEST RADIOGRAPH Indication: pNEUMONIA Technique: Single frontal view of the chest was obtained Comparison: XY CHEST PORTABLE on DOS: 05/31/24, XY CHEST PORTABLE on DOS: 05/30/24, XY CHEST XRAY 1 V IEW on DOS: 05/29/24 IMPRESSION: There are small bilateral pleural effusions, right greater than left. Support lines and tubes appear unchanged in satisfactory position. No pneumothorax. Heart size appear stable.
[2024-06-01] MEDS: IPRATROPIUM BROM 0.5 MG/2.5ML INH SOL NEB PRN (06:13)
[2024-06-01] MEDS: ALBUTEROL SULF 2.5 MG/0.5ML(0.5%) NEB SOLN NEB PRN (06:13)
[2024-06-01 07:47] LABS: Base Excess 7.8 mmol/L (-2.0-3.0)
[2024-06-01] MEDS: acetaZOLAMIDE SODIUM 500 MG VL IV SCH (08:32)
[2024-06-01 09:07] LABS: INR 1.86 (0.9-1.15); Prothrombin Time 18.8 sec (9.3-11.8)
--- NOTE | 2024-06-01 09:29 | DVHPN2 ---
Progress Note Date Seen: Jun 01, 2024 Medical Necessity Reason Pt with a Central, PICC or Fol: Yes The following are medically ne: Central Line, Mendoza Catheter Reason for mendoza catheter: Strict I&O Subjective Review of Systems: RESPIRATORY:Abnormal Other Systems: Patient seen and examined by myself on follow-up today, patient remained intubated on ventilator Objective vital signs Vital Sign Date Time Temp Pulse Resp B/P (MAP) Pulse Ox O2 Delivery O2 Flow Rate FiO2 06/01/24 09:19 87 24 112/62 (79) 99 30 06/01/24 06:45 97.7 207.9 06/01/24 06:00 Mechanical Ventilator+ Total Intake and Output 05/31/24 05/31/24 06/01/24 15:00 23:00 07:00 Intake Total 49.876 ml 398.935 ml 412.778 ml Output Total 1400 ml 850 ml Balance 49.876 ml -1001.065 ml -437.222 ml medications Current Medications Medications Dose Ordered Sig/Estela Route Start Time Stop Time Status Last Admin Dose Admin Nitroglycerin 0.4 mg Q5MINP PRN SL 05/19/24 17:00 Albuterol 2.5 mg Q4HPRN PRN NEB 05/19/24 17:15 06/01/24 06:13 2.5 MG Ipratropium [place] 0.5 mg Q4HPRN PRN NEB 05/19/24 17:15 06/01/24 06:13 0.5 MG Vancomycin HCl 0 ml @ 0 mls/hr UD IV 05/22/24 20:15 Midazolam HCl 50 ml @ 1 mls/hr Q24H IV 05/22/24 21:30 05/31/24 03:40 3 MLS/HR Meropenem 50 ml @ 17 mls/hr Q12H IV 05/23/24 11:00 06/01/24 08:32 17 MLS/HR Dextrose 50 ml UD PRN IV 05/23/24 05:00 Cancel Insulin Glargine 20 units DAILY@1000 SC 05/23/24 10:00 05/31/24 10:00 20 UNITS Pantoprazole Sodium 40 mg DAILY IV 05/23/24 10:00 06/01/24 08:31 40 MG Dextrose 50 ml UD PRN IV 05/23/24 11:00 Cancel Diagnostic Test (Pha) 1 strip Q6HR 05/23/24 18:00 06/01/24 05:32 1 STRIP Insulin Human Regular Q6HR SC 05/23/24 18:00 06/01/24 05:36 2 UNITS Dextrose 50 ml UD PRN IV 05/23/24 16:15 Enteral Nutritional Formula 1,000 ml 55ML/HR GT 05/26/24 14:00 Enteral Nutritional Formula 1,000 ml 20ML/HR GT 05/27/24 14:30 05/27/24 18:01 1,000 ML Phenylephrine HCl 80 mg/Sodium Chloride 250 ml @ 7.5 mls/hr Q24H IV 05/28/24 12:30 05/29/24 06:47 7.5 MLS/HR Norepinephrine Bitartrate 32 mg/ Sodium Chloride 250 ml @ 0.938 mls/ hr Q24H IV 05/28/24 12:30 06/01/24 01:45 4.688 MLS/HR Lactulose 30 ml Q6HR PO 05/29/24 18:00 06/01/24 05:32 30 ML Sodium Chloride 1,000 ml @ 75 mls/hr [id number] IV 05/30/24 10:00 05/31/24 11:45 75 MLS/HR Acetazolamide Sodium 500 mg DAILY IV 06/01/24 10:00 06/01/24 08:32 500 MG Propofol 100 ml @ 2.685 mls/ hr Q24H IV 05/31/24 11:15 05/31/24 22:42 2.685 MLS/HR Amiodarone HCl 200 mg BID PO 05/31/24 11:30 05/31/24 21:29 200 MG Fentanyl Citrate 250 ml @ 2.5 mls/hr Q24H IV 06/01/24 00:45 Potassium Chloride 100 ml @ 50 mls/hr Q2H IV 06/01/24 08:30 06/01/24 12:29 UNV Dexmedetomidine HCl 400 mcg/ Dextrose 100 ml @ 4.185 mls/ hr [id number] IV 06/01/24 08:30 Examination: LUNGS:Normal, CVS:Normal, MSK:Normal laboratory and microbiology Laboratory Tests 06/01/24 03:15 Test 06/01/24 03:15 Range/Units Serum Glucose 136 H 74-106 mg/dL Microbiology Date/Time Source Procedure Growth Status 05/29/24 15:14 Pleural Fluid Gram Stain - Final Resulted 05/29/24 15:14 Pleural Fluid Body Fluid Culture - Preliminary Resulted 05/24/24 11:00 Nose MRSA Screen - Final Complete 05/22/24 20:03 Blood Blood Culture - Final NO GROWTH AFTER 5 DAYS OF INCUBATION. Complete 05/19/24 18:00 Voided Urine Urine Culture - Final Complete Problem List/Assessment/Plan Problem List/Assessment/Plan Acute kidney injury hemodynamically mediated ATN, FeNa > 2% Acute respiratory failure , intubated on ventilator Diastolic heart failure Shock with multiorgan dysfunction Atrial fibrillation with rapid ventricular response Hypernatremia due to dehydration Diabetes mellitus type 2 Pneumonia Hypokalemia liver cirrhosis Recommendations Resolving ATN Increased urine output IVF D5W @ 80 cc/hour KCL replacement Insulin sliding scale Discontinue furosemide drip IV pressors for blood pressure support Strict I&Os Cardiology consult We will continue to follow up Plan discussed with: Other (Nurse) My Orders My Orders Orders - ELVIRA SIMS MD Procedure Category Date Status Time D5w 5% PHA 06/01/24 Transmitted 09:30 Potassium Chl Siva PHA 06/01/24 Transmitted KCL 09:30 Dietary Evaluation Review Comments: 1) If GI is accessible, pt is stable, consider Glucerna 1.2 @ 55 ml/hr x 24hr goal rate as tolerated 2) If pt remains NPO >3 days consider TPN to meet at least 75% of estimated needs 3) Advance pt diet when medically feasible to a Cardiac/CCHO 60g diet 4) Continue current plan of care Expected Outcomes/Goals: 1) Pt to receive nutrition support within 7 days of NPO status 2) Pt diet to advance 3) F/U in 2-3 days Muscle mass (Non-Severe): Mild Depletion (Moderate) ELVIRA SIMS MD Jun 01, 2024 09:29
[2024-06-01] MEDS ORDERED: POTASSIUM CHL 20MEQ/100ML 100 ML IV SCH (09:30)
[2024-06-01] MEDS: D5W 5% 1,000 ML IV SCH (09:58)
[2024-06-01] MEDS: POTASSIUM CHL 20MEQ/100ML 100 ML IV SCH (09:59)
[2024-06-01] MEDS: ACCU-CHEK COMFORT CURVE STRIP VI SCH (12:07)
[2024-06-01] MEDS: InsuLIN REG 1unit/0.01ml Soln (100units/ml) SC SCH (12:10)
--- NOTE | 2024-06-01 12:17 | DVHPN2 ---
Subjective FiO2 30% PEEP: 5 Levophed drip Fent and Propofol drips Changes from previous H/P or p: Changes Eyes: No Pain, No Vision change, No Conjunctivae inflammation, No Eyelid inflammation, No Other, No Redness ENT: No Ear pain, No Ear discharge, No Nose pain, No Nose discharge, No Nose congestion, No Mouth pain, No Mouth swelling, No Throat pain, No Throat swelling, No Other Cardiovascular: No Chest Pain; Palpitations; No Orthopnea, No Paroxysmal Noc. Dyspnea, No Edema, No Lt Headedness, No Other Respiratory: No Cough, No Dry; Shortness of breath; No SOB with excertion, No Wheezing, No Hemoptysis, No Pleuritic Pain, No Sputum, No Other Gastrointestinal: No Nausea, No Vomiting, No Abdominal Pain, No Diarrhea, No Constipation, No Melena, No Hematochezia, No Other Genitourinary: No Dysuria, No Frequency, No Incontinence, No Hematuria, No Retention, No Other Musculoskeletal: No other, No neck pain, No shoulder pain, No arm pain, No back pain, No hand pain, No leg pain, No foot pain Skin: No Rash, No Lesions, No Jaundice, No Bruising, No Other Objective Vitals Vital Signs Date Time Temp Pulse Resp B/P (MAP) Pulse Ox O2 Delivery O2 Flow Rate FiO2 06/01/24 11:08 87 24 100/54 (69) 100 30 06/01/24 10:45 99.0 210.2 06/01/24 10:00 Mechanical Ventilator+ Intake/Output Intake and Output 06/01/24 07:00 Intake Total 861.589 ml Output Total 2250 ml Balance -1388.411 ml Intake Oral 510 ml IV Total 301.589 ml Tube Feeding 50 ml Output Urine Total 2250 ml # Bowel Movements 2 General Appearance: Other (Intubated and sedated) Extremities: Other (2+ edema B) Medications Current Medications Medications Dose Ordered Sig/Estela Route Start Time Stop Time Status Last Admin Dose Admin Nitroglycerin 0.4 mg Q5MINP PRN SL 05/19/24 17:00 Albuterol 2.5 mg Q4HPRN PRN NEB 05/19/24 17:15 06/01/24 09:55 2.5 MG Ipratropium [place] 0.5 mg Q4HPRN PRN NEB 05/19/24 17:15 06/01/24 09:55 0.5 MG Vancomycin HCl 0 ml @ 0 mls/hr UD IV 05/22/24 20:15 Midazolam HCl 50 ml @ 1 mls/hr Q24H IV 05/22/24 21:30 05/31/24 03:40 3 MLS/HR Meropenem 50 ml @ 17 mls/hr Q12H IV 05/23/24 11:00 06/01/24 08:32 17 MLS/HR Dextrose 50 ml UD PRN IV 05/23/24 05:00 Cancel Insulin Glargine 20 units DAILY@1000 SC 05/23/24 10:00 06/01/24 10:18 20 UNITS Pantoprazole Sodium 40 mg DAILY IV 05/23/24 10:00 06/01/24 08:31 40 MG Dextrose 50 ml UD PRN IV 05/23/24 11:00 Cancel Dextrose 50 ml UD PRN IV 05/23/24 16:15 Enteral Nutritional Formula 1,000 ml 55ML/HR GT 05/26/24 14:00 Enteral Nutritional Formula 1,000 ml 20ML/HR GT 05/27/24 14:30 05/27/24 18:01 1,000 ML Phenylephrine HCl 80 mg/Sodium Chloride 250 ml @ 7.5 mls/hr Q24H IV 05/28/24 12:30 05/29/24 06:47 7.5 MLS/HR Norepinephrine Bitartrate 32 mg/ Sodium Chloride 250 ml @ 0.938 mls/ hr Q24H IV 05/28/24 12:30 06/01/24 01:45 4.688 MLS/HR Lactulose 30 ml Q6HR PO 05/29/24 18:00 06/01/24 11:58 30 ML Acetazolamide Sodium 500 mg DAILY IV 06/01/24 10:00 06/01/24 08:32 500 MG Propofol 100 ml @ 2.685 mls/ hr Q24H IV 05/31/24 11:15 06/01/24 10:22 10.74 MLS/HR Amiodarone HCl 200 mg BID PO 05/31/24 11:30 06/01/24 09:57 200 MG Fentanyl Citrate 250 ml @ 2.5 mls/hr Q24H IV 06/01/24 00:45 Potassium Chloride 100 ml @ 50 mls/hr Q2H IV 06/01/24 08:30 06/01/24 12:29 06/01/24 11:58 50 MLS/HR Dexmedetomidine HCl 400 mcg/ Dextrose 100 ml @ 4.185 mls/ hr [id number] IV 06/01/24 08:30 Dextrose 1,000 ml @ 80 mls/hr [id number] IV 06/01/24 09:30 06/01/24 09:58 80 MLS/HR Diagnostic Test (Pha) 1 strip Q4HR 06/01/24 11:00 06/01/24 12:07 1 STRIP Insulin Human Regular Q4H SC 06/01/24 11:00 06/01/24 12:10 3 UNITS Laboratory Results Laboratory Tests 06/01/24 03:15 Chemistry Test 06/01/24 03:15 Calcium Level 8.9 mg/dL (8.7-10.4) Coagulation Test 06/01/24 08:20 Prothrombin Time 18.8 sec (9.3-11.8) H Prothrombin Time INR 1.86 (0.9-1.15) H Urinalysis Test 05/19/24 18:00 05/27/24 12:27 Urine Color Yellow (Yellow) Urine Clarity Clear (Clear) Urine pH 5.5 (5.0-9.0) Urine Specific [place] 1.019 (1.001-1.035) Urine Protein Trace (Negative) H Urine Ketones Trace (Negative) Urine Blood Negative /uL (Negative) Urine Nitrite Negative (Negative) Urine Bilirubin Negative (Negative) Urine Urobilinogen Normal mg/dL (Negative) Urine Leukocyte Esterase Negative /uL (Negative) Urine RBC 1 /hpf (0 - 3) Urine WBC 2 /hpf (0 - 3) Urine Squamous Epithelial Cells Few /hpf (<5) Urine Bacteria None seen /hpf (None Seen) Urine Hyaline Casts Mod /lpf (0 - 2) Urine Mucus Few (None Seen) Urine Glucose 3+ mg/dL (Normal) H Urine Creatinine 23.06 mg/dL (30.0-125.0) L Urine Protein/Creatinine Ratio 1.59 Urine Sodium 114 mmol/L (40-220) Urine Total Protein 36.7 mg/dL (1-14) H Blood Gas Results Test 06/01/24 07:12 Arterial Blood pH 7.498 (7.350-7.450) FiO2 % 30.0 Microbiology Microbiology Date/Time Source Procedure Growth Status 05/29/24 15:14 Pleural Fluid Gram Stain - Final Resulted 05/29/24 15:14 Pleural Fluid Body Fluid Culture - Preliminary Resulted 05/24/24 11:00 Nose MRSA Screen - Final Complete 05/22/24 20:03 Blood Blood Culture - Final NO GROWTH AFTER 5 DAYS OF INCUBATION. Complete 05/19/24 18:00 Voided Urine Urine Culture - Final Complete Assessment/Plan Assessment/Plan Acute hypoxic respiratory failure most likely due to pneumonia and fluid overload Acute kidney injury hemodynamically mediated concerning for acute tubular necrosis Hyperkalemia Pneumonia Atrial fibrillation Diastolic heart failure Sepsis with septic shock Possible pericarditis DVT of the right lower extremity Peripheral arterial disease Cardiac arrest status post CPR Bradycardia Type 2 diabetes Basal cell skin cancer Plan 06/01/24: IV antibiotics meropenem and vancomycin IV fluids D5W Sedation as needed CPAP trials Taper Levophed down as tolerated Amiodarone p.o. Plan discussed with: Other Date of Service: Jun 01, 2024 Billing Provider: MAGDALENA ARAUJO MD Common Visit Codes: 86244-CDZCCODD CARE 30-74 MIN MAGDALENA ARAUJO MD Jun 01, 2024 12:17
[2024-06-01] MEDS: VANCOMYCIN 500mg/100mL 100 ML IV ONE (14:35)
--- NOTE | 2024-06-01 18:37 | DVHPN2 ---
Progress Note - Dictate Date Seen: Jun 01, 2024 Medical Necessity Reason Pt with a Central, PICC or Fol: Yes The following are medically ne: Central Line, Mendoza Catheter Reason for mendoza catheter: Strict I&O Subjective Patient seen and examined at bedside. Sedated, intubated on mechanical ventilator. Overnight events reviewed. vital signs Vital Sign Date Time Temp Pulse Resp B/P (MAP) Pulse Ox O2 Delivery O2 Flow Rate FiO2 06/01/24 18:09 86 24 94/52 (66) 98 30 06/01/24 18:09 Mechanical Ventilator 06/01/24 18:00 98.4 209.1 Total Intake and Output 05/31/24 05/31/24 06/01/24 15:00 23:00 07:00 Intake Total 49.876 ml 398.935 ml 412.778 ml Output Total 1400 ml 850 ml Balance 49.876 ml -1001.065 ml -437.222 ml medications Current Medications Medications Dose Ordered Sig/Estela Route Start Time Stop Time Status Last Admin Dose Admin Nitroglycerin 0.4 mg Q5MINP PRN SL 05/19/24 17:00 Albuterol 2.5 mg Q4HPRN PRN NEB 05/19/24 17:15 06/01/24 18:17 2.5 MG Ipratropium [place] 0.5 mg Q4HPRN PRN NEB 05/19/24 17:15 06/01/24 18:17 0.5 MG Vancomycin HCl 0 ml @ 0 mls/hr UD IV 05/22/24 20:15 Midazolam HCl 50 ml @ 1 mls/hr Q24H IV 05/22/24 21:30 05/31/24 03:40 3 MLS/HR Meropenem 50 ml @ 17 mls/hr Q12H IV 05/23/24 11:00 06/01/24 08:32 17 MLS/HR Dextrose 50 ml UD PRN IV 05/23/24 05:00 Cancel Insulin Glargine 20 units DAILY@1000 SC 05/23/24 10:00 06/01/24 10:18 20 UNITS Pantoprazole Sodium 40 mg DAILY IV 05/23/24 10:00 06/01/24 08:31 40 MG Dextrose 50 ml UD PRN IV 05/23/24 11:00 Cancel Dextrose 50 ml UD PRN IV 05/23/24 16:15 Enteral Nutritional Formula 1,000 ml 55ML/HR GT 05/26/24 14:00 Enteral Nutritional Formula 1,000 ml 20ML/HR GT 05/27/24 14:30 05/27/24 18:01 1,000 ML Phenylephrine HCl 80 mg/Sodium Chloride 250 ml @ 7.5 mls/hr Q24H IV 05/28/24 12:30 05/29/24 06:47 7.5 MLS/HR Norepinephrine Bitartrate 32 mg/ Sodium Chloride 250 ml @ 0.938 mls/ hr Q24H IV 05/28/24 12:30 06/01/24 01:45 4.688 MLS/HR Lactulose 30 ml Q6HR PO 05/29/24 18:00 06/01/24 17:03 30 ML Acetazolamide Sodium 500 mg DAILY IV 06/01/24 10:00 06/01/24 08:32 500 MG Propofol 100 ml @ 2.685 mls/ hr Q24H IV 05/31/24 11:15 06/01/24 10:22 8.055 MLS/HR Amiodarone HCl 200 mg BID PO 05/31/24 11:30 06/01/24 09:57 200 MG Fentanyl Citrate 250 ml @ 2.5 mls/hr Q24H IV 06/01/24 00:45 Dexmedetomidine HCl 400 mcg/ Dextrose 100 ml @ 4.185 mls/ hr [id number] IV 06/01/24 08:30 Dextrose 1,000 ml @ 80 mls/hr [id number] IV 06/01/24 09:30 06/01/24 09:58 80 MLS/HR Diagnostic Test (Pha) 1 strip Q4HR 06/01/24 11:00 06/01/24 17:03 1 STRIP Insulin Human Regular Q4H SC 06/01/24 11:00 06/01/24 17:04 2 UNITS objective Gen.: Patient lying in bed in medical ICU. Sedated, intubated on mechanical ventilator. Head: Normocephalic, atraumatic. Eyes: PERRLA. Ears: Normal external anatomy. Throat: Endotracheal tube and orogastric tube in place. Neck: Supple, trachea midline. Chest: Transmitted breath sounds bilaterally. Decreased air entry bilaterally. No wheezing. Bibasilar crackles. Cardiovascular: Positive S1, positive S2. Regular rate and rhythm. Abdomen: Positive bowel sounds in all 4 quadrants. Soft, nontender, nondistended. : Mendoza in place. Normal external genitalia. Rectal: Deferred. Skin: Warm, dry. Intact. Extremities: 2+ radial pulses bilaterally. No lower extremity edema. Neuro: Sedated. laboratory and microbiology Laboratory Tests 06/01/24 03:15 Test 06/01/24 03:15 Range/Units Serum Glucose 136 H 74-106 mg/dL Assessment/Plan Impression: Acute hypoxic respiratory failure On mechanical ventilator Status post cardiac arrest Metabolic acidosis Glycemia Events: Remains on vent support Vent settings: assist control with respiratory rate of 26, tidal volume 500, PEEP of 5, FiO2 at 30%. Sedated on Propofol, Fentanyl On pressors for hemodynamic support. On Levophed 14 mcg/min Titrate to keep MAP above 65 mmHg/SBP above 90 mmHg. ABG reviewed, notable for alkalemia Decrease RR to 20 BPM Obtain ABG in 2 hours. Continue bronchodilators Continue antibiotics Amiodarone PO Potassium supplementation Monitor renal function. Monitor electrolytes. Supplement as necessary. Tube feeds for nutritional support Check coags DVT prophylaxis w/ SCDs Labs and imaging reviewed. Rest of plan as noted below. Plan: s/p intubation on mechanical ventilator See separate procedure note for intubation Lost pulse post intubation PEA - See code blue sheet for full details. Emergently placed left femoral central line for venous access and administration of vasopressors. Initially attempted on right femoral line during code blue. Attempt was unsuccessful. CXR image and report reviewed. Endotracheal tube in place. Pulmonary vascular congestion. ABG reviewed. Severe acidemia secondary to metabolic acidosis. D5W with three amps of bicarbonate running at 100 mL an hour. New vent settings: assist control with respiratory rate of 20, tidal volume 500, PEEP of 5, FiO2 at 30%. Titrate FIO2 to keep O2 saturation above 92%. VAP bundle Daily ABG and CXR while intubated. Sedate for ventilatory synchrony Bronchodilators On pressors for hemodynamic support. Titrate to keep MAP above 65 mmHg/SBP above 90 mmHg. Continue antibiotics. F/u cultures. Monitor renal function due to Acute kidney injury. Monitor electrolytes. Supplement as necessary. Nutritional support. Accucheks, ISS. On nicotine replacement therapy GI/DVT prophylaxis. Condition: Critical Prognosis: Poor given multiple comorbidities. Rest of plan per hospitalist and other consultants. A total of 35 minutes of critical care time was spent reviewing the patient record, examining the patient, making a diagnostic and therapeutic plan, discussing this plan with the medical personnel, following up on diagnostic studies and following the patient for clinical stability excluding any and all procedures. At least 50% of this time was spent in direct, [id number] contact. Thank you Dr. Brown for allowing me to participate in this patient's care. Further recommendations will depend on patient's clinical course. Please do not hesitate to contact me if you have any questions or concerns. This medical document was created using an electronic medical record system with [employer] HR dictation system. Although this document has been carefully reviewed, there may still be some phonetic and typographical errors. These areas are purely typographical due to imperfections of the software programs, and do not reflect any compromise in the patient's medical care. Dietary Evaluation Review Comments: 1) If GI is accessible, pt is stable, consider Glucerna 1.2 @ 55 ml/hr x 24hr goal rate as tolerated 2) If pt remains NPO >3 days consider TPN to meet at least 75% of estimated needs 3) Advance pt diet when medically feasible to a Cardiac/CCHO 60g diet 4) Continue current plan of care Expected Outcomes/Goals: 1) Pt to receive nutrition support within 7 days of NPO status 2) Pt diet to advance 3) F/U in 2-3 days Muscle mass (Non-Severe): Mild Depletion (Moderate) Plan discussed with: Other (JOON Hernandez) Critical Care Time(min): 35 CATIA ANDERSON MD Jun 01, 2024 18:37
[2024-06-02] VITALS (129 sets, daily range): BP systolic 12–117; BP diastolic 9–66; PULSE 78–123; RESP 6–29; TEMP 33.8; O2SAT 66–100
[2024-06-02 03:58] LABS: Red Cell Distribution Width 19.1 % (11.8-14.3)
[2024-06-02 04:04] LABS: Hematocrit 31.4 % (41.0-53.0); Mean Corpuscular Hemoglobin 28.4 pg (28.0-32.0); Mean Corpuscular Hgb Conc. 31.7 g/dL (32.0-36.0); Mean Corpuscular Volume 89.5 fL (80.0-100.0); Platelet Count (auto) 260 10^3/uL (140-450); Red Blood Cells 3.51 10^6/uL (4.5-5.90)
[2024-06-02 04:26] LABS: Anion Gap 14 (5-15); Calcium 9.2 mg/dL (8.7-10.4); Carbon Dioxide 30 mmol/L (20-31); Glucose 103 mg/dL (74-106); Magnesium 2.4 mg/dL (1.6-2.6); Potassium 3.9 mmol/L (3.5-5.1)
[2024-06-02 04:27] LABS: Total Protein 6.3 g/dL (5.7-8.2)
[2024-06-02 04:49] LABS: Alanine Aminotransferase 102 U/L (7-40); Albumin 2.8 g/dL (3.2-4.8); Alkaline Phosphatase 207 U/L (46-116); Aspartate Aminotransferase 108 U/L (13-40); Chloride 107 mmol/L (98-107); Phosphorus 8.8 mg/dL (2.4-5.1); Sodium 151 mmol/L (136-145)
[2024-06-02 04:50] LABS: Blood Urea Nitrogen 131 mg/dL (9-23)
[2024-06-02 05:07] LABS: White Blood Cell 45.4 10^3/uL (4.4-10.8)
[2024-06-02 05:08] LABS: Basophils % (manual) 0 (0.0-2.0); Blast Cells 0; Eosinophils % (manual) 0 (0-7); Metamyelocytes % 0; Myelocytes % 0; Promyelocytes % 0; Reactive Lymphocytes 0
--- NOTE | 2024-06-02 05:36 | DVH ---
CHEST RADIOGRAPH Indication: vent Technique: Single frontal view of the chest was obtained Comparison: XY CHEST PORTABLE on DOS: 06/01/24, XY CHEST PORTABLE on DOS: 05/31/24, XY CHEST PORTABLE on DOS: 05/30/24 IMPRESSION: Cardiomediastinal silhouette appears unremarkable. There is a small left and moderate right pleural effusion. No discrete pneumothorax. Support lines and tubes appear unchanged in satisfactory positio n.
[2024-06-02 07:02] LABS: Anisocytosis Slight; Band Neutrophils % (manual) 12; Lymphocytes % (manual) 3 (10.0-50.0); Monocytes % (manual) 8 (0-12); Platelet Estimate Adequate
[2024-06-02 07:29] LABS: Base Excess 2.9 mmol/L (-2.0-3.0)
--- NOTE | 2024-06-02 10:34 | ECG ---
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
--- NOTE | 2024-06-02 11:21 | DVHPN2 ---
Subjective WBCs is very high at 47 Septic Abdomen is distended Changes from previous H/P or p: Changes Eyes: No Pain, No Vision change, No Conjunctivae inflammation, No Eyelid inflammation, No Other, No Redness ENT: No Ear pain, No Ear discharge, No Nose pain, No Nose discharge, No Nose congestion, No Mouth pain, No Mouth swelling, No Throat pain, No Throat swelling, No Other Cardiovascular: No Chest Pain; Palpitations; No Orthopnea, No Paroxysmal Noc. Dyspnea, No Edema, No Lt Headedness, No Other Respiratory: No Cough, No Dry; Shortness of breath; No SOB with excertion, No Wheezing, No Hemoptysis, No Pleuritic Pain, No Sputum, No Other Gastrointestinal: No Nausea, No Vomiting, No Abdominal Pain, No Diarrhea, No Constipation, No Melena, No Hematochezia, No Other Genitourinary: No Dysuria, No Frequency, No Incontinence, No Hematuria, No Retention, No Other Musculoskeletal: No other, No neck pain, No shoulder pain, No arm pain, No back pain, No hand pain, No leg pain, No foot pain Skin: No Rash, No Lesions, No Jaundice, No Bruising, No Other Objective Vitals Vital Signs Date Time Temp Pulse Resp B/P (MAP) Pulse Ox O2 Delivery O2 Flow Rate FiO2 06/02/24 09:24 82 24 97/50 (66) 96 30 06/02/24 08:00 Mechanical Ventilator+ 06/02/24 08:00 97.5 207.5 Intake/Output Intake and Output 06/02/24 07:00 Intake Total 3316.191 ml Output Total 450 ml Balance 2866.191 ml Intake Oral 150 ml IV Total 3076.191 ml Tube Feeding 90 ml Output Urine Total 450 ml # Bowel Movements 1 General Appearance: Other (intubated and sedated) Lungs: Other (B Rhonchi) Abdomen: Other (Firm, faint bowel sounds) Extremities: Other (2+ edema) Medications Current Medications Medications Dose Ordered Sig/Estela Route Start Time Stop Time Status Last Admin Dose Admin Nitroglycerin 0.4 mg Q5MINP PRN SL 05/19/24 17:00 Albuterol 2.5 mg Q4HPRN PRN NEB 05/19/24 17:15 06/02/24 05:43 2.5 MG Ipratropium [place] 0.5 mg Q4HPRN PRN NEB 05/19/24 17:15 06/02/24 05:43 0.5 MG Vancomycin HCl 0 ml @ 0 mls/hr UD IV 05/22/24 20:15 Midazolam HCl 50 ml @ 1 mls/hr Q24H IV 05/22/24 21:30 05/31/24 03:40 3 MLS/HR Meropenem 50 ml @ 17 mls/hr Q12H IV 05/23/24 11:00 06/02/24 09:41 17 MLS/HR Dextrose 50 ml UD PRN IV 05/23/24 05:00 Cancel Insulin Glargine 20 units DAILY@1000 SC 05/23/24 10:00 06/02/24 09:19 20 UNITS Pantoprazole Sodium 40 mg DAILY IV 05/23/24 10:00 06/02/24 07:48 40 MG Dextrose 50 ml UD PRN IV 05/23/24 11:00 Cancel Dextrose 50 ml UD PRN IV 05/23/24 16:15 Enteral Nutritional Formula 1,000 ml 55ML/HR GT 05/26/24 14:00 Enteral Nutritional Formula 1,000 ml 20ML/HR GT 05/27/24 14:30 05/27/24 18:01 1,000 ML Phenylephrine HCl 80 mg/Sodium Chloride 250 ml @ 7.5 mls/hr Q24H IV 05/28/24 12:30 06/02/24 10:34 7.5 MLS/HR Norepinephrine Bitartrate 32 mg/ Sodium Chloride 250 ml @ 0.938 mls/ hr Q24H IV 05/28/24 12:30 06/02/24 02:55 14.063 MLS/HR Lactulose 30 ml Q6HR PO 05/29/24 18:00 06/02/24 05:19 30 ML Acetazolamide Sodium 500 mg DAILY IV 06/01/24 10:00 06/02/24 07:48 500 MG Propofol 100 ml @ 2.685 mls/ hr Q24H IV 05/31/24 11:15 06/02/24 08:44 8.055 MLS/HR Amiodarone HCl 200 mg BID PO 05/31/24 11:30 06/02/24 07:48 200 MG Fentanyl Citrate 250 ml @ 2.5 mls/hr Q24H IV 06/01/24 00:45 06/02/24 07:26 22.5 MLS/HR Dexmedetomidine HCl 400 mcg/ Dextrose 100 ml @ 4.185 mls/ hr [id number] IV 06/01/24 08:30 Dextrose 1,000 ml @ 80 mls/hr [id number] IV 06/01/24 09:30 06/02/24 10:33 80 MLS/HR Diagnostic Test (Pha) 1 strip Q4HR 06/01/24 11:00 06/02/24 09:17 1 STRIP Insulin Human Regular Q4H SC 06/01/24 11:00 06/01/24 22:09 2 UNITS Laboratory Results Laboratory Tests 06/02/24 03:35 Chemistry Test 06/02/24 03:35 Albumin 2.8 g/dL (3.2-4.8) L Calcium Level 9.2 mg/dL (8.7-10.4) Magnesium Level 2.4 mg/dL (1.6-2.6) Phosphorus Level 8.8 mg/dL (2.4-5.1) H Total Protein 6.3 g/dL (5.7-8.2) LFT Test 06/02/24 03:35 Alanine Aminotransferase (ALT) 102 U/L (7-40) H Alkaline Phosphatase 207 U/L (46-116) H Aspartate Amino Transferase (AST) 108 U/L (13-40) H Total Bilirubin 10.0 mg/dL (0.2-1.0) H Urinalysis Test 05/19/24 18:00 05/27/24 12:27 Urine Color Yellow (Yellow) Urine Clarity Clear (Clear) Urine pH 5.5 (5.0-9.0) Urine Specific [place] 1.019 (1.001-1.035) Urine Protein Trace (Negative) H Urine Ketones Trace (Negative) Urine Blood Negative /uL (Negative) Urine Nitrite Negative (Negative) Urine Bilirubin Negative (Negative) Urine Urobilinogen Normal mg/dL (Negative) Urine Leukocyte Esterase Negative /uL (Negative) Urine RBC 1 /hpf (0 - 3) Urine WBC 2 /hpf (0 - 3) Urine Squamous Epithelial Cells Few /hpf (<5) Urine Bacteria None seen /hpf (None Seen) Urine Hyaline Casts Mod /lpf (0 - 2) Urine Mucus Few (None Seen) Urine Glucose 3+ mg/dL (Normal) H Urine Creatinine 23.06 mg/dL (30.0-125.0) L Urine Protein/Creatinine Ratio 1.59 Urine Sodium 114 mmol/L (40-220) Urine Total Protein 36.7 mg/dL (1-14) H Blood Gas Results Test 06/02/24 07:14 Arterial Blood pH 7.342 (7.350-7.450) FiO2 % 30.0 Microbiology Microbiology Date/Time Source Procedure Growth Status 05/29/24 15:14 Pleural Fluid Gram Stain - Final Resulted 05/29/24 15:14 Pleural Fluid Body Fluid Culture - Preliminary Resulted 05/24/24 11:00 Nose MRSA Screen - Final Complete 05/22/24 20:03 Blood Blood Culture - Final NO GROWTH AFTER 5 DAYS OF INCUBATION. Complete 05/19/24 18:00 Voided Urine Urine Culture - Final Complete Assessment/Plan Assessment/Plan Acute hypoxic respiratory failure most likely due to pneumonia and fluid overload Acute kidney injury hemodynamically mediated concerning for acute tubular necrosis Hyperkalemia Pneumonia Atrial fibrillation Diastolic heart failure Sepsis with septic shock Possible pericarditis DVT of the right lower extremity Peripheral arterial disease Cardiac arrest status post CPR Bradycardia Type 2 diabetes Basal cell skin cancer Plan 06/01/24: IV antibiotics meropenem and vancomycin IV fluids D5W Sedation as needed CPAP trials Taper Levophed down as tolerated Amiodarone p.o. 06/02/24: Sepsis/Leukocytosis: Get miranda cultures, CT abd&pelvis Vasopressors IV fluids Meropenem and Vanco Amiodarone po Sedation as needed Plan discussed with: Other My Orders Orders - MAGDALENA ARAUJO MD Procedure Category Date Status Time Chest Portable XY 06/02/24 Resulted 06:00 Abg W/ Co-Ox RT 06/02/24 Logged 06:00 Ct Ab Pel Wo Con-No CT 06/03/24 Logged Oral Or Iv 09:25 Urine Bacterial SIMONA 06/02/24 In Process Culture 09:25 Respiratory Culture SIMONA 06/02/24 Logged W/ Gs 09:25 Date of Service: Jun 02, 2024 Billing Provider: MAGDALENA ARAUJO MD Common Visit Codes: 25744-[id number] CARE 30-74 MIN MAGDALENA ARAUJO MD Jun 02, 2024 11:21
--- NOTE | 2024-06-02 11:56 | DVHNC2 ---
Procedure - pt has renal failure, but not acidotic, hyperkalemic, or volume overloaded. however, nephrology requests for allie cath to be placed. i attempted to place from the right femoral area, since pt is intubated. his coagulation panel is slightly elevated, but no contraindications. under total sterile condition, with gown, drape, prepping, and US guidance, with sterile probe cover and lube, i was able to initially cannulate the femoral vein and got dark, venous return, but it stopped and repeat attempts failed to access the vein. there is no complications, no hematoma. CASANDRA WORKMAN MD Jun 02, 2024 11:56
--- NOTE | 2024-06-02 12:00 | DVHPN2 ---
Progress Note Date Seen: Jun 02, 2024 Medical Necessity Reason Pt with a Central, PICC or Fol: Yes The following are medically ne: Central Line, Mendoza Catheter Reason for mendoza catheter: Strict I&O Subjective Review of Systems: RESPIRATORY:Abnormal Other Systems: Patient seen and examined by myself today in follow-up, patient remained intubated on ventilator Objective vital signs Vital Sign Date Time Temp Pulse Resp B/P (MAP) Pulse Ox O2 Delivery O2 Flow Rate FiO2 06/02/24 09:24 82 24 97/50 (66 96 30 06/02/24 08:00 Mechanical Ventilator+ 06/02/24 08:00 97.5 207.5 Total Intake and Output 06/01/24 06/01/24 06/02/24 15:00 23:00 07:00 Intake Total 1049.629 ml 1145.744 ml 1120.818 ml Output Total 350 ml 100 ml Balance 1049.629 ml 795.744 ml 1020.818 ml medications Current Medications Medications Dose Ordered Sig/Estela Route Start Time Stop Time Status Last Admin Dose Admin Nitroglycerin 0.4 mg Q5MINP PRN SL 05/19/24 17:00 Albuterol 2.5 mg Q4HPRN PRN NEB 05/19/24 17:15 06/02/24 05:43 2.5 MG Ipratropium [place] 0.5 mg Q4HPRN PRN NEB 05/19/24 17:15 06/02/24 05:43 0.5 MG Vancomycin HCl 0 ml @ 0 mls/hr UD IV 05/22/24 20:15 Midazolam HCl 50 ml @ 1 mls/hr Q24H IV 05/22/24 21:30 05/31/24 03:40 3 MLS/HR Meropenem 50 ml @ 17 mls/hr Q12H IV 05/23/24 11:00 06/02/24 09:41 17 MLS/HR Dextrose 50 ml UD PRN IV 05/23/24 05:00 Cancel Insulin Glargine 20 units DAILY@1000 SC 05/23/24 10:00 06/02/24 09:19 20 UNITS Pantoprazole Sodium 40 mg DAILY IV 05/23/24 10:00 06/02/24 07:48 40 MG Dextrose 50 ml UD PRN IV 05/23/24 11:00 Cancel Dextrose 50 ml UD PRN IV 05/23/24 16:15 Enteral Nutritional Formula 1,000 ml 55ML/HR GT 05/26/24 14:00 Enteral Nutritional Formula 1,000 ml 20ML/HR GT 05/27/24 14:30 05/27/24 18:01 1,000 ML Phenylephrine HCl 80 mg/Sodium Chloride 250 ml @ 7.5 mls/hr Q24H IV 05/28/24 12:30 06/02/24 10:34 7.5 MLS/HR Norepinephrine Bitartrate 32 mg/ Sodium Chloride 250 ml @ 0.938 mls/ hr Q24H IV 05/28/24 12:30 06/02/24 02:55 14.063 MLS/HR Lactulose 30 ml Q6HR PO 05/29/24 18:00 06/02/24 05:19 30 ML Acetazolamide Sodium 500 mg DAILY IV 06/01/24 10:00 06/02/24 07:48 500 MG Propofol 100 ml @ 2.685 mls/ hr Q24H IV 05/31/24 11:15 06/02/24 08:44 8.055 MLS/HR Amiodarone HCl 200 mg BID PO 05/31/24 11:30 06/02/24 07:48 200 MG Fentanyl Citrate 250 ml @ 2.5 mls/hr Q24H IV 06/01/24 00:45 06/02/24 07:26 22.5 MLS/HR Dexmedetomidine HCl 400 mcg/ Dextrose 100 ml @ 4.185 mls/ hr [id number] IV 06/01/24 08:30 Dextrose 1,000 ml @ 80 mls/hr [id number] IV 06/01/24 09:30 06/02/24 10:33 80 MLS/HR Diagnostic Test (Pha) 1 strip Q4HR 06/01/24 11:00 06/02/24 09:17 1 STRIP Insulin Human Regular Q4H SC 06/01/24 11:00 06/01/24 22:09 2 UNITS Examination: LUNGS:Normal, CVS:Normal, MSK:Normal laboratory and microbiology Laboratory Tests 06/02/24 03:35 Test 06/02/24 03:35 Range/Units Serum Glucose 103 74-106 mg/dL Microbiology Date/Time Source Procedure Growth Status 05/29/24 15:14 Pleural Fluid Gram Stain - Final Resulted 05/29/24 15:14 Pleural Fluid Body Fluid Culture - Preliminary Resulted 05/24/24 11:00 Nose MRSA Screen - Final Complete 05/22/24 20:03 Blood Blood Culture - Final NO GROWTH AFTER 5 DAYS OF INCUBATION. Complete 05/19/24 18:00 Voided Urine Urine Culture - Final Complete Problem List/Assessment/Plan Problem List/Assessment/Plan Acute kidney injury hemodynamically mediated ATN, FeNa > 2% Acute respiratory failure , intubated on ventilator Diastolic heart failure Shock with multiorgan dysfunction Atrial fibrillation with rapid ventricular response Hypernatremia due to dehydration Diabetes mellitus type 2 Pneumonia Hypokalemia liver cirrhosis Recommendations Kidney function again deteriorated become oliguric worsening hypotension Consent for John on hemodialysis I discussed risks of hemodialysis with the granddaughter at bedside she understand patient may not tolerate intermittent hemodialysis due to low blood pressure Patient in max dose IV pressors Albumin 25% with hemodialysis Insulin sliding scale Discontinue furosemide drip IV pressors for blood pressure support Strict I&Os Cardiology consult We will continue to follow up Plan discussed with: Daughter, Other (Nurse) My Orders My Orders Orders - ELVIRA SIMS MD Procedure Category Date Status Time Obtain Consent For: ORDERS 06/02/24 Transmitted 06:54 Dietary Evaluation Review Comments: 1) If GI is accessible, pt is stable, consider Glucerna 1.2 @ 55 ml/hr x 24hr goal rate as tolerated 2) If pt remains NPO >3 days consider TPN to meet at least 75% of estimated needs 3) Advance pt diet when medically feasible to a Cardiac/CCHO 60g diet 4) Continue current plan of care Expected Outcomes/Goals: 1) Pt to receive nutrition support within 7 days of NPO status 2) Pt diet to advance 3) F/U in 2-3 days Muscle mass (Non-Severe): Mild Depletion (Moderate) ELVIRA SIMS MD Jun 02, 2024 12:00
[2024-06-02] MEDS: SODIUM CHL 0.9% 1000 ML BAG XX ONE (12:15)
--- NOTE | 2024-06-02 12:36 | ECG ---
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
[2024-06-02] MEDS: VASOPRESSIN 20 UNITS in SODIUM CHL 0.9% 99 ML IV SCH (16:34)
[2024-06-02] MEDS ORDERED: MIDAZOLAM DRIP 50 mg/50mL 50 ML IV SCH (17:00)
[2024-06-02] MEDS: EPINEPHrine HCL 250 ML IV SCH (17:21)
--- NOTE | 2024-06-02 20:42 | DVHNC2 ---
Procedure - ULTRASOUND-GUIDED RIGHT INTERNAL JUGULAR CENTRAL VENOUS CANNULATION for John (Large Bore) Catheter placement CPT Codes: 81218 (ultrasound guidance) 14300 (insertion of non-tunneled centrally inserted central venous catheter) 95785 (CXR interpretation) DATE: 06/02/2024 Time out time: 2015pm PHYSICIAN: Catia Parr PREOPERATIVE DIAGNOSIS: Acute renal failure, requiring hemodialysis POSTOPERATIVE DIAGNOSIS: Acute renal failure, requiring hemodialysis PROCEDURE PERFORMED: Limited Ultrasound-guided Right internal jugular large-bore central line (John) placement. ANESTHESIA: 2 mL of 1% lidocaine plain. ESTIMATED BLOOD LOSS: less than 5 mL. SPECIMENS: None. COMPLICATIONS: None. INDICATIONS FOR PROCEDURE: The patient is in need of large bore IV access for hemodialysis due to acute renal failure DESCRIPTION OF PROCEDURE IN DETAIL: The patient was lying in the Trendelenburg position with head turned 30 degrees away from the insertion site. The skin was thoroughly sponged with chlorhexidine and allowed to dry. All persons involved were shielded with hair nets, face masks and sterile gowns. With sterile-gloved hands the right neck area was draped with the large disposable sterile field provided in the pre-manufactured kit. The skin and subcutaneous tissues superficial to the RIGHT internal jugular vein were anesthetized with 2 mL of 1% lidocaine. The RIGHT internal jugular vein was identified on ultrasound from the angle of the mandible down into the supraclavicular fossa using the linear ultrasound probe in the transverse orientation. The carotid artery was identified and avoided utilizing color-flow. The internal jugular vein was then placed in the center of the ultrasound field and compressed for patency. A movement artifact was identified as the needle was advanced through the skin and advanced toward the vessel. A real time hyperechoic signal revealed visualization of vascular needle entry into the lumen as blood was noted to flashback in the syringe. The needle was then held in place while the guide wire was advanced. The needle was then removed. Direct visualization of guide wire location within the vein was noted on ultrasound indicating proper placement and was documented in the electronic medical record chart. A skin dilator was advanced over the guidewire and removed. A larger bore skin dilator was advanced over the guidewire and removed. The double-lumen John catheter was then advanced over the guide wire into proper position. The guide wire was removed and discarded. The ports were aspirated which showed good blood return and then carefully flushed with normal saline. Heparin 1.2 mL were placed into each port. The catheter was stabilized and sutured to the skin with 2-0 Prolene at 2 anchor points. A sterile bio-patch and dressing was placed over the catheter, including the insertion site. The patient tolerated the procedure well. A chest x-ray was ordered for position confirmation. I reviewed the image immediately after it was taken at bedside. Post-procedure chest x-ray demonstrates the John catheter line in the superior vena and no evidence of any pneumothorax. An image print out of the guidewire within the lumen of the right internal jugular vein accompanies the chart. CATIA PARR MD Jun 02, 2024 20:42
--- NOTE | 2024-06-02 20:44 | DVHNC2 ---
Procedure - RIGHT Femoral Arterial Line Procedure Note INDICATION: SHOCK PROCEDURE BOARD OPERATOR: DR Kathie ANDERSON Time-out time: 0831 pm Date: 06/02/2024 CONSENT: Consent was obtained from HCP prior to the procedure. Indications, risks, and benefits were explained at length. Patient medications and allergies reviewed. The risks and benefits of the proc edure and the sedation options and risk were discussed with the patient's healthcare proxy. All questions were answered and informed consent was obtained. Patient identification and proposed procedure were verified prior to the procedure by the physician, and a nurse in the patient's room. The heart rate, respiratory rate, oxygen saturations, blood pressure, adequacy of pulmonar y ventilation, and response to care were monitored throughout the procedure. The physical status of the patient was reassessed after the procedure. PROCEDURE SUMMARY: A time out was performed. My hands were washed immediately prior to the procedure. I wore a surgical cap, mask with protective eyewear, sterile gown and sterile gloves throughout the procedure. The RIGHT inguinal region was prepped using chlorhexidine scrub and draped in sterile fashion using a three quarter sheet drape and sterile towels. The femoral pulse was identified. Anesthesia was achieved using 1% lidocaine. Palpating the femoral pulse throughout the proce dure and visualization on ultrasound using the linear ultrasound probe in the transverse orientation. The femoral artery was identified and avoided utilizing color-flow. The femoral artery was then placed in the center of the ultrasound field and pulsation was evident. A movement artifact was identified as the needle was advanced through the skin and advanced toward the vessel. A real time hyperechoic signal revealed visualization of vascular needle entry into the lumen of the femoral artery as blood was noted to flashback in the syringe. Arterial blood was withdrawn. The syringe was removed and a guidewire was advanced through the needle into the femoral artery. The needle was exchanged over the wire for an arterial catheter. The wire was removed and the catheter was secured to the skin using 2 sutures. The patient tolerated the procedure without any hemodynamic compromise. At time of procedure completion, the catheter was connected to the monitor car operator and calibrated. Appropriate waveform and blood pressure tracing was observed. Estimated blood loss is 5mL. CPT 89580 arterial line placement CPT 27046 ultrasound Add On CATIA ANDERSON MD Jun 02, 2024 20:44
[2024-06-02] MEDS: SODIUM BICARB 8.4% 50Meq/50ml SYR Vial IV ONE ×3 (20:57→21:34)
[2024-06-02] MEDS: EPOETIN ALFA-EPBX 10,000 UNIT/1ML VIAL SC ONE (21:00)
[2024-06-02 21:01] LABS: Base Excess -17.7 mmol/L (-2.0-3.0)
[2024-06-02] MEDS ORDERED: DOPamine 1600MCG/ML D5W 250 ML IV ONE (21:13)
[2024-06-02] MEDS ORDERED: DOPamine 1600MCG/ML D5W 250 ML IV SCH (21:15)
--- NOTE | 2024-06-02 21:17 | DVHPN2 ---
Progress Note - Dictate Date Seen: Jun 02, 2024 Medical Necessity Reason Pt with a Central, PICC or Fol: Yes The following are medically ne: Central Line, Mendoza Catheter Reason for mendoza catheter: Strict I&O Subjective Patient seen and examined at bedside. Sedated, intubated on mechanical ventilator. Overnight events reviewed. vital signs Vital Sign Date Time Temp Pulse Resp B/P (MAP) Pulse Ox O2 Delivery O2 Flow Rate FiO2 06/02/24 20:55 80/33 06/02/24 20:49 30 06/02/24 19:55 80 24 93 06/02/24 18:00 Mechanical Ventilator+ 06/02/24 18:00 98.6 209.5 Total Intake and Output 06/01/24 06/01/24 06/02/24 15:00 23:00 07:00 Intake Total 1049.629 ml 1145.744 ml 1120.818 ml Output Total 350 ml 100 ml Balance 1049.629 ml 795.744 ml 1020.818 ml medications Current Medications Medications Dose Ordered Sig/Estela Route Start Time Stop Time Status Last Admin Dose Admin Nitroglycerin 0.4 mg Q5MINP PRN SL 05/19/24 17:00 Albuterol 2.5 mg Q4HPRN PRN NEB 05/19/24 17:15 06/02/24 14:07 2.5 MG Ipratropium [place] 0.5 mg Q4HPRN PRN NEB 05/19/24 17:15 06/02/24 14:07 0.5 MG Vancomycin HCl 0 ml @ 0 mls/hr UD IV 05/22/24 20:15 Meropenem 50 ml @ 17 mls/hr Q12H IV 05/23/24 11:00 06/02/24 09:41 17 MLS/HR Dextrose 50 ml UD PRN IV 05/23/24 05:00 Cancel Insulin Glargine 20 units DAILY@1000 SC 05/23/24 10:00 06/02/24 09:19 20 UNITS Pantoprazole Sodium 40 mg DAILY IV 05/23/24 10:00 06/02/24 07:48 40 MG Dextrose 50 ml UD PRN IV 05/23/24 11:00 Cancel Dextrose 50 ml UD PRN IV 05/23/24 16:15 Enteral Nutritional Formula 1,000 ml 55ML/HR GT 05/26/24 14:00 Enteral Nutritional Formula 1,000 ml 20ML/HR GT 05/27/24 14:30 05/27/24 18:01 1,000 ML Phenylephrine HCl 80 mg/Sodium Chloride 250 ml @ 7.5 mls/hr Q24H IV 05/28/24 12:30 06/02/24 10:34 7.5 MLS/HR Norepinephrine Bitartrate 32 mg/ Sodium Chloride 250 ml @ 0.938 mls/ hr Q24H IV 05/28/24 12:30 06/02/24 02:55 14.063 MLS/HR Lactulose 30 ml Q6HR PO 05/29/24 18:00 06/02/24 17:15 30 ML Acetazolamide Sodium 500 mg DAILY IV 06/01/24 10:00 06/02/24 07:48 500 MG Propofol 100 ml @ 2.685 mls/ hr Q24H IV 05/31/24 11:15 06/02/24 08:44 8.055 MLS/HR Amiodarone HCl 200 mg BID PO 05/31/24 11:30 06/02/24 07:48 200 MG Fentanyl Citrate 250 ml @ 2.5 mls/hr Q24H IV 06/01/24 00:45 06/02/24 17:08 20 MLS/HR Dexmedetomidine HCl 400 mcg/ Dextrose 100 ml @ 4.185 mls/ hr [id number] IV 06/01/24 08:30 Dextrose 1,000 ml @ 80 mls/hr [id number] IV 06/01/24 09:30 06/02/24 10:33 80 MLS/HR Diagnostic Test (Pha) 1 strip Q4HR 06/01/24 11:00 06/02/24 17:08 1 STRIP Insulin Human Regular Q4H SC 06/01/24 11:00 06/01/24 22:09 2 UNITS Vasopressin 20 units/Sodium Chloride 100 ml @ 9 mls/hr [id number] IV 06/02/24 12:45 06/02/24 16:34 9 MLS/HR Epinephrine HCl 250 ml @ 7.5 mls/hr Q24H IV 06/02/24 17:00 06/02/24 17:21 7.5 MLS/HR Midazolam HCl 50 ml @ 1 mls/hr Q24H IV 06/02/24 17:00 Sodium Bicarbonate 150 ml/Dextrose 1,150 ml @ 100 mls/hr [id number] IV 06/02/24 21:00 Dopamine HCl/ Dextrose 250 ml @ 16.781 mls/ hr [id number] IV 06/02/24 21:15 UNV objective Gen.: Patient lying in bed in medical ICU. Sedated, intubated on mechanical ventilator. Head: Normocephalic, atraumatic. Eyes: PERRLA. Ears: Normal external anatomy. Throat: Endotracheal tube and orogastric tube in place. Neck: Supple, trachea midline. Chest: Transmitted breath sounds bilaterally. Decreased air entry bilaterally. No wheezing. Bibasilar crackles. Cardiovascular: Positive S1, positive S2. Regular rate and rhythm. Abdomen: Positive bowel sounds in all 4 quadrants. Soft, nontender, nondistended. : Mendoza in place. Normal external genitalia. Rectal: Deferred. Skin: Warm, dry. Intact. Extremities: 2+ radial pulses bilaterally. No lower extremity edema. Neuro: Sedated. laboratory and microbiology Laboratory Tests 06/02/24 03:35 Test 06/02/24 03:35 Range/Units Serum Glucose 103 74-106 mg/dL Assessment/Plan Impression: Acute hypoxic respiratory failure On mechanical ventilator Status post cardiac arrest Metabolic acidosis Glycemia Events: Remains on vent support Vent settings: assist control with respiratory rate of 20, tidal volume 500, PEEP of 5, FiO2 at 30%. Sedated on Versed, Fentanyl. On multiple pressors for hemodynamic support. On Levophed 30 mcg/min, Jose Manuel-Synephrine 180 mcg/min, vasopressin 0,03 units/min, epinephrine 2 mcg/min Titrate to keep MAP above 65 mmHg/SBP above 90 mmHg. ABG reviewed, notable for acidemia Nephrology plans for hemodialysis Request [place] placement Monitor renal function. Monitor electrolytes. Supplement as necessary. Continue bronchodilators Continue antibiotics Amiodarone PO Tube feeds for nutritional support Check coags DVT prophylaxis w/ SCDs Labs and imaging reviewed. Rest of plan as noted below. Plan: s/p intubation on mechanical ventilator See separate procedure note for intubation Lost pulse post intubation PEA - See code blue sheet for full details. Emergently placed left femoral central line for venous access and administration of vasopressors. Initially attempted on right femoral line during code blue. Attempt was unsuccessful. CXR image and report reviewed. Endotracheal tube in place. Pulmonary vascular congestion. ABG reviewed. Severe acidemia secondary to metabolic acidosis. D5W with three amps of bicarbonate running at 100 mL an hour. Vent settings: assist control with respiratory rate of 20, tidal volume 500, PEEP of 5, FiO2 at 30%. Titrate FIO2 to keep O2 saturation above 92%. VAP bundle Daily ABG and CXR while intubated. Sedate for ventilatory synchrony Bronchodilators On multiple pressors for hemodynamic support. Titrate to keep MAP above 65 mmHg/SBP above 90 mmHg. Continue antibiotics. F/u cultures. Monitor renal function due to Acute kidney injury. Monitor electrolytes. Supplement as necessary. Nutritional support. Accu-Cheks, ISS. On nicotine replacement therapy GI/DVT prophylaxis. Condition: Critical Prognosis: Poor given multiple comorbidities. Rest of plan per hospitalist and other consultants. A total of 35 minutes of critical care time was spent reviewing the patient record, examining the patient, making a diagnostic and therapeutic plan, discussing this plan with the medical personnel, following up on diagnostic studies and following the patient for clinical stability excluding any and all procedures. At least 50% of this time was spent in direct, [id number] contact. Thank you Dr. Brown for allowing me to participate in this patient's care. Further recommendations will depend on patient's clinical course. Please do not hesitate to contact me if you have any questions or concerns. This medical document was created using an electronic medical record system with [employer] dictation system. Although this document has been carefully reviewed, there may still be some phonetic and typographical errors. These areas are purely typographical due to imperfections of the software programs, and do not reflect any compromise in the patient's medical care. Dietary Evaluation Review Comments: 1) If GI is accessible, pt is stable, consider Glucerna 1.2 @ 55 ml/hr x 24hr goal rate as tolerated 2) If pt remains NPO >3 days consider TPN to meet at least 75% of estimated needs 3) Advance pt diet when medically feasible to a Cardiac/CCHO 60g diet 4) Continue current plan of care Expected Outcomes/Goals: 1) Pt to receive nutrition support within 7 days of NPO status 2) Pt diet to advance 3) F/U in 2-3 days Muscle mass (Non-Severe): Mild Depletion (Moderate) Plan discussed with: Other (JOON Hernandez) Critical Care Time(min): 35 CATIA ANDERSON MD Jun 02, 2024 21:17
[2024-06-02] MEDS: DOPamine 1600MCG/ML D5W 250 ML IV SCH (21:20)
[2024-06-02] MEDS: SODIUM BICARB 50mEq/50ml Vial 150 ML in D5W 5% 1,000 ML IV SCH (21:25)
[2024-06-02] MEDS ORDERED: LORazepam 2MG/ML-1ML VIAL IV PRN (22:45)
[2024-06-02] MEDS: MORPHINE SULFATE INJ 2 MG/ml SYRG IV PRN (22:59)
[2024-06-02] MEDS: MORPHINE SULFATE INJ 2 MG/ml SYRG ONE (23:00)
[2024-06-03 09:36] LABS: Hepatitis A Ab IgM Negative; Hepatitis B Core IgM Negative (Negative); Hepatitis B Surface Antigen Negative (Negative); Hepatitis C Antibody Negative (Negative)
--- NOTE | 2024-06-05 21:01 | DVHDS ---
DATE OF DISCHARGE: 06/03/2024 SUMMARY DATE OF : 06/02/2024 ADMITTING DIAGNOSES: The patient was a 74-year-old gentleman who was initially admitted with a previous history of atrial fibrillation, tobacco abuse and venous insufficiency, who came in with complaints of indigestion and chest discomfort. HOSPITAL COURSE: The patient was noted to be in atrial fibrillation with rapid ventricular rate. He was seen in Cardiology consult by Dr. Santana. The patient underwent a coronary angiography that showed no significant coronary disease. He was noted to have atrial fibrillation. The patient's echocardiogram done showed ejection fraction of 55%. The patient on 05/22/2024 while having bowel movement developed shortness of breath and subsequently became bradycardic and asystolic and was intubated at that time and a Code Blue was called. The patient had a second Code Blue situation with asystole soon thereafter. The patient subsequently went into acute renal failure. He was seen in Nephrology consult by Dr. Alvarado. The patient was also in septic shock, requiring use of vasopressors. The patient had a pleural fluid culture that grew Enterococcus due to VRE. The patient was placed on heparin that was subsequently stopped because of thrombocytopenia. The patient had a CT of the head that showed no acute intracranial pathology. The patient also had a CT of abdomen and pelvis that showed no acute process, except for bilateral pleural and pericardial effusions. The patient had undergone thoracentesis on 05/29/2024. The patient on 06/02 developed decompensation with worsening hypotension, requiring use of multiple vasopressors. The patient developed severe metabolic acidosis. His code status was changed to comfort measures by the family and he on 06/02/2024. FINAL DIAGNOSES: Therefore: * Acute respiratory failure. * Status post cardiac arrest, status post cardiopulmonary resuscitation. * Atrial fibrillation with rapid ventricular rate. * Chronic obstructive pulmonary disease with tobacco dependence. * Septic shock due to pneumonia. * Acute renal failure/acute tubular necrosis. * Type 2 diabetes mellitus. * Hypernatremia. * Anemia. * Thrombocytopenia. * Shock liver. MD KORY Obando/KADIE/KAY TID: [id number] RECEIPT: [id number]
== END 2024-06-03 01:53 | DRG 870 ==
LOC: EDBD 12:05 → ER 12:05 → OVERFLOW 16:37 → TELE 16:58 → TELE-WESTW 05-20 14:36 → ICU WEST 05-22 20:30
PROVIDERS: ADMIT Internal Medicine; ATTEND Internal Medicine Pulmonary Disease
PROC: B211YZZ Fluoroscopy of Multiple Coronary Arteries using Other Contrast (ICD-10-PCS; principal; 2024-05-21)
PROC: 4A023N7 Measurement of Cardiac Sampling and Pressure, Left Heart, Percutaneous Approach (ICD-10-PCS; 2024-05-21)
PROC: 5A1955Z Respiratory Ventilation, Greater than 96 Consecutive Hours (ICD-10-PCS; 2024-05-22)
PROC: 0BH17EZ Insertion of Endotracheal Airway into Trachea, Via Natural or Artificial Opening (ICD-10-PCS; 2024-05-22)
PROC: 5A12012 Performance of Cardiac Output, Single, Manual (ICD-10-PCS; 2024-05-22)
PROC: 5A2204Z Restoration of Cardiac Rhythm, Single (ICD-10-PCS; 2024-05-22)
PROC: 06HN33Z Insertion of Infusion Device into Left Femoral Vein, Percutaneous Approach (ICD-10-PCS; 2024-05-22)
PROC: B54CZZA Ultrasonography of Left Lower Extremity Veins, Guidance (ICD-10-PCS; 2024-05-22)
PROC: 05HN33Z Insertion of Infusion Device into Left Internal Jugular Vein, Percutaneous Approach (ICD-10-PCS; 2024-05-29)
PROC: B544ZZA Ultrasonography of Left Jugular Veins, Guidance (ICD-10-PCS; 2024-05-29)
PROC: 0W9B3ZZ Drainage of Left Pleural Cavity, Percutaneous Approach (ICD-10-PCS; 2024-05-29)
PROC: 02HV33Z Insertion of Infusion Device into Superior Vena Cava, Percutaneous Approach (ICD-10-PCS; 2024-06-02)
PROC: B548ZZA Ultrasonography of Superior Vena Cava, Guidance (ICD-10-PCS; 2024-06-02)
PROC: 04HY32Z Insertion of Monitoring Device into Lower Artery, Percutaneous Approach (ICD-10-PCS; 2024-06-02)
DX: A41.9 Sepsis, unspecified organism (principal); J18.9 Pneumonia, unspecified organism; J96.01 Acute respiratory failure with hypoxia; K72.00 Acute and subacute hepatic failure without coma; R65.21 Severe sepsis with septic shock; I31.39 Other pericardial effusion (noninflammatory); E87.20 Acidosis, unspecified; N17.9 Acute kidney failure, unspecified; I50.30 Unspecified diastolic (congestive) heart failure; I82.401 Acute embolism and thrombosis of unspecified deep veins of right lower extremity; Z66 Do not resuscitate; I46.9 Cardiac arrest, cause unspecified; E11.22 Type 2 diabetes mellitus with diabetic chronic kidney disease; E11.65 Type 2 diabetes mellitus with hyperglycemia; I48.0 Paroxysmal atrial fibrillation; I87.2 Venous insufficiency (chronic) (peripheral); N18.2 Chronic kidney disease, stage 2 (mild); J43.9 Emphysema, unspecified; D69.6 Thrombocytopenia, unspecified; K59.00 Constipation, unspecified; F17.200 Nicotine dependence, unspecified, uncomplicated; C44.91 Basal cell carcinoma of skin, unspecified; E11.51 Type 2 diabetes mellitus with diabetic peripheral angiopathy without gangrene; I20.89 Other forms of angina pectoris; K30 Functional dyspepsia; Z88.0 Allergy status to penicillin; Z79.899 Other long term (current) drug therapy; Z71.6 Tobacco abuse counseling; Z79.84 Long term (current) use of oral hypoglycemic drugs; Z82.49 Family history of ischemic heart disease and other diseases of the circulatory system; Z80.6 Family history of leukemia
CPT/HCPCS: 32555; 36415; 36600; 70450; 71045; 74176; 76604; 76942; 80048; 80053; 80061; 80074; 80202; 81001; 82140; 82565; 82570; 82805; 82962; 83036; 83520; 83521; 83605; 83735; 83880; 84100; 84132; 84155; 84156; 84165; 84300; 84443; 84484; 85007; 85025; 85027; 85379; 85610; 85730; 86038; 86160; 86256; 86850; 86900; 86901; 87040; 87070; 87077; 87081; 87086; 87186; 87205; 87804; 89051; 92950; 92961; 93005; 93306; 93458; 93926; 93970; 94002; 94003; 94640; 96365; 96366; 99152; 99291; G0378; J0171; J1450; J1642; J2185; J2250; J2405; J2470; J2704; J3480; J7060; P9047; Q9967